=== PATIENT | female | born 1950 | race Caucasian/White ===

== ENCOUNTER → 2016-12-16 | Outpatient (CLI) | payer OTHER ==
[~2016-12-16] MED LIST: ASPI81TA28 PO; CHOL100010 PO; HYDR200T5 PO; METO100T44 PO; MULT-513 PO; MYCO500T4 PO; NXM/40 PO; SYMIN160 INH
--- NOTE | 2016-12-16 12:00 | DIAGNOSTIC IMAGING REPORT ---
ABDOMINAL ULTRASOUND, RIGHT UPPER QUADRANT HISTORY: Abnormal liver function tests R79.89. COMPARISON: None. FINDINGS: Pancreas: The pancreas demonstrates a normal echotexture. Liver: Fatty infiltration Gallbladder: No gallbladder wall thickening. No gallstones. CBD: 5 mm Right kidney: No hydronephrosis. IMPRESSION: Fatty infiltration of liver. Otherwise negative study Electronically signed by: Rodrigue Paulino M.D. 12/16/2016 11:58 AM Dictated Date/Time: 12/16/2016 11:57 AM
== END | disposition home or self-care (01) ==
LOC: C.ULTR 11:05
PROVIDERS: ATTEND Internal Medicine Gastroenterology
DX: R79.89 Other specified abnormal findings of blood chemistry (principal)

== ENCOUNTER → 2017-07-21 | Outpatient (CLI) | payer OTHER ==
--- NOTE | 2017-07-21 14:36 | ECHOCARDIOGRAM REPORT ---
*NOTICE TO RECEIVING DEMOCRAT AGENCY This information is strictly Confidential and protected under [place] law. [place] law prohibits you from making any further disclosure of this information unless further disclosure is expressly permitted by the written consent of the person to whom it pertains or is authorized by law. A general authorization for the release of medical or other information is not sufficient for this purpose. Hospital accepts no responsibility if the information is made available to any other person, INCLUDING THE PATIENT. Interpretation Summary * Name: ALONDRA STEWARD Study Date: 07/21/2017 11:10 AM BP: 127/78 mmHg * Patient Location: [facility] HR: 65 * : 1950 (M/d/yyyy) Gender: Female Height: 64 in * Age: 67 yrs Ethnicity: [place] Weight: 179 lb * Ordering Physician: Xiomara Ahumada * Referring Physician: Xiomara Ahumada * Performed By: Olinda Rai RCS * * Reason For Study: SCLERODERMA / DYSPNEA * BSA: 1.9 m2 * -- Conclusions -- * Left ventricular systolic function is normal. * Diastolic dysfunction, Grade II, consistent with elevated left atrial pressure. * Compared to an echocardiogram from 05/23/2016, there is no significant difference Procedure Details * A complete two-dimensional transthoracic echocardiogram was performed (2D, M-mode, Doppler and color flow Doppler). Left Ventricle * The left ventricle is normal in size. * There is normal left ventricular wall thickness. * Left ventricular systolic function is normal. * Ejection Fraction = 55-60%. * Diastolic dysfunction, Grade II, consistent with elevated left atrial pressure. * The left ventricular wall motion is normal. Right Ventricle * The right ventricle is normal in size and function. Atria * The left atrial size is normal. * Right atrial size is normal. Mitral Valve * The mitral valve anatomy is normal. * There is trace mitral regurgitation. Tricuspid Valve * The tricuspid valve anatomy is normal. * Significant tricuspid regurgitation is absent. Aortic Valve * The aortic valve is normal in structure and function. * No hemodynamically significant valvular aortic stenosis. * There is no significant aortic regurgitation. Great Vessels * The aortic root is normal size. Pericardium/Pleural * There is no pericardial effusion. Great Vessels * Normal inferior vena cava diameter and respiratory variation suggests normal central venous pressure. MMode 2D Measurements and Calculations IVSd 1.0 cm IVSs 1.3 cm LVIDd 4.9 cm LVIDs 3.8 cm LVPWd 0.86 cm LVPWs 1.0 cm IVS/LVPW 1.2 FS 23.7 % EDV(Teich) 114.7 ml ESV(Teich) 60.6 ml EF(Teich) 47.1 % EDV(cubed) 120.2 ml ESV(cubed) 53.4 ml EF(cubed) 55.6 % % IVS thick 21.2 % % LVPW thick 21.3 % LV mass(C)d 167.3 grams LV mass(C)dI 89.6 grams/m\S\2 LV mass(C)s 143.2 grams LV mass(C)sI 76.8 grams/m\S\2 SV(Teich) 54.0 ml SI(Teich) 29.0 ml/m\S\2 SV(cubed) 66.8 ml SI(cubed) 35.8 ml/m\S\2 Ao root diam 2.7 cm Ao root area 5.8 cm\S\2 LA dimension 4.2 cm LA/Ao 1.6 LVOT diam 1.9 cm LVOT area 2.9 cm\S\2 LVAd ap4 28.7 cm\S\2 LVLd ap4 6.9 cm EDV(MOD-sp4) 100.3 ml EDV(sp4-el) 101.7 ml LVAs ap4 18.5 cm\S\2 LVLs ap4 5.6 cm ESV(MOD-sp4) 52.4 ml ESV(sp4-el) 52.4 ml EF(MOD-sp4) 47.8 % EF(sp4-el) 48.5 % LVAd ap2 28.5 cm\S\2 LVLd ap2 7.3 cm EDV(MOD-sp2) 91.3 ml EDV(sp2-el) 94.5 ml LVAs ap2 17.1 cm\S\2 LVLs ap2 5.7 cm ESV(MOD-sp2) 41.3 ml ESV(sp2-el) 43.6 ml EF(MOD-sp2) 54.7 % EF(sp2-el) 53.9 % LVLd %diff 6.2 % EDV(MOD-bp) 99.2 ml LVLs %diff 1.7 % ESV(MOD-bp) 46.6 ml EF(MOD-bp) 53.0 % SV(MOD-sp4) 47.9 ml SI(MOD-sp4) 25.7 ml/m\S\2 SV(MOD-sp2) 49.9 ml SI(MOD-sp2) 26.8 ml/m\S\2 SV(MOD-bp) 52.5 ml SI(MOD-bp) 28.2 ml/m\S\2 SV(sp4-el) 49.3 ml SI(sp4-el) 26.4 ml/m\S\2 SV(sp2-el) 50.9 ml SI(sp2-el) 27.3 ml/m\S\2 Doppler Measurements and Calculations MV E max kvng 95.4 cm/sec MV A max kvng 77.6 cm/sec MV E/A 1.2 MV P1/2t max kvng 110.4 cm/sec MV P1/2t 76.5 msec MVA(P1/2t) 2.9 cm\S\2 MV dec slope 422.6 cm/sec\S\2 MV dec time 0.17 sec Ao V2 max 170.8 cm/sec Ao max PG 11.7 mmHg Ao max PG (full) 6.4 mmHg CULLEN(V,A) 2.0 cm\S\2 CULLEN(V,D) 2.0 cm\S\2 LV V1 max PG 5.3 mmHg LV V1 max 114.9 cm/sec MR max kvng 301.1 cm/sec MR max PG 36.3 mmHg PA V2 max 107.8 cm/sec PA max PG 4.7 mmHg
--- NOTE | 2017-07-22 07:29 | PULMONARY FUNCTION TEST ---
Spirometry is within the limits of normal. The mid flow rates are 67% of predicted. This is not definitively abnormal but cannot exclude small airways dysfunction. Lung volumes show normal FRC, RV and TLC. Diffusion capacity is low normal at 72%. When corrected for alveolar ventilation, it was 90%.
== END | disposition home or self-care (01) ==
LOC: C.CPL 10:51
PROVIDERS: ATTEND Internal Medicine
DX: M34.9 Systemic sclerosis, unspecified (principal)

== ENCOUNTER 2017-10-25 10:55 | Emergency (ER) | payer OTHER ==
[~2017-10-25] VITALS: Ht 162.6 cm; Wt 86.0 kg
[2017-10-25 11:01] VITALS: TEMP 36.6; Ht 162.6 cm; Wt 86.0 kg
[2017-10-25] MEDS ORDERED: ALBUT/IPRATROP 3MG/0.5MG NEB 3 ML VIAL INH STA (11:27)
--- NOTE | 2017-10-25 11:33 | EMERGENCY ROOM VISIT NOTE ---
ED Visit Note First contact with patient: 11:09 CHIEF COMPLAINT: "Upper respiratory something going on" HISTORY OF PRESENT ILLNESS: This 67-year-old female patient, significant past medical history scleroderma and lupus, presents to the emergency department ambulatory, complaining of URI symptoms x 5 days. The patient states they have been experiencing congestion, runny nose, sore throat, cough, chills, and coughing up sputum. She states approximately 2 days ago, the symptoms began moving into her sinuses, and she is now experiencing bilateral sinus congestion and purulent drainage. They deny any other symptoms including otalgia, swollen lymph nodes, objective fever, nausea, or vomiting. There is pain with swallowing due to the sore throat, but she states the sore throat has improved, now only feels hot. The patient describes the drainage from the nose as thick, yellow, and green. There is mild bilateral sinus pressure and pain. The patient has taken OTC Tylenol and prescription hydrocodone cough syrup with mild improvement in symptoms. She has not taken any decongestants or antihistamines. The patient does not recall any known exposure to strep throat. The patient does have a history of sinus infections, and does report frequent pneumonia. Denies a rash. The patient has been using her Symbicort and ProAir air, but has not been using the pro-air consistently. REVIEW OF SYSTEMS: A 10 system review of systems was performed with positives and pertinent negatives listed in the history of present illness. All other systems were reviewed and are negative. ALLERGIES: None MEDICATIONS: Metoprolol, Nexium, CellCept, Plaquenil, aspirin, vitamin D, multivitamin, Symbicort, ranitidine, hydrochlorothiazide, ProAir PMH: Lupus, scleroderma SOCIAL HISTORY: The patient lives locally with family. She denies drug, alcohol , tobacco use. PHYSICAL EXAM: VITALS: Vitals are noted on the nurse's note and reviewed by myself. Vital signs stable. GENERAL: This is a 67-year-old white female, in no acute distress, nondiaphoretic, well-developed well-nourished. SKIN: The skin was without rashes, erythema, edema, or bruising. There is no tenting of the skin. Capillary reflex less than 2 seconds. HEAD: Normocephalic atraumatic. EARS: External auditory canals clear, bilateral tympanic membranes pearly hubbard without erythema or effusion bilaterally. EYES: Pupils equal round and reactive to light and accommodation. Conjunctivae without injection, sclerae without icterus. Extraocular movements intact. NOSE: Patent, turbinates with mild inflammation, but no erythema. Clear rhinorrhea noted. No sinus tenderness. MOUTH: Mucous membranes moist. Tonsils are not enlarged. Pharynx without erythema or exudate. Uvula midline. Airway patent. Tongue does not deviate. NECK: Supple without nuchal rigidity. No lymphadenopathy. No thyromegaly. Cervical spine is nontender. No JVD. HEART: Regular rate and rhythm without murmurs gallops or rubs. LUNGS: Mild to moderate wheezing and rhonchi noted throughout, worse in the bilateral lower lung gilbert. No dullness to percussion. No retractions or accessory muscle use. MUSCULOSKELETAL: No muscle atrophy, erythema, or edema noted. Full range of motion without joint tenderness in all extremities. No tenderness to palpation. Normal gait. Strength 5/5 throughout. NEURO: Patient was alert and oriented to person place and time. Normal sensation to light and sharp touch. No focal neurological deficits. RADIOLOGY: CHEST 2 VIEWS ROUTINE CLINICAL HISTORY: cough dyspnea COMPARISON STUDY: 08/10/2015 FINDINGS: The bones soft tissues and hemidiaphragms are normal. The cardiomediastinal silhouette is normal. The lungs are clear. The pulmonary vasculature is normal. IMPRESSION: Negative chest. The above report was generated using voice recognition software. It may contain grammatical, syntax or spelling errors. Electronically signed by: Rodrigue Paulino M.D. 10/25/2017 12:07 PM Dictated Date/Time: 10/25/2017 12:07 PM EMERGENCY DEPARTMENT COURSE: The patient was seen and evaluated as above. She was given a DuoNeb breathing treatment and reassessed. The patient was feeling much better. Chest x-ray performed and reviewed by myself and radiologist as above. No acute pneumonia noted. The patient will be started on steroids with a prescription for antibiotics due to her PMH and current medications. The patient was agreeable to this treatment plan. We did discuss the use of her Albuterol inhaler, and due to frequent bronchitis, I did recommend the patient discuss obtaining a nebulizer machine for use at home. The patient was agreeable. All questions answered to her satisfaction. Discharge instructions reviewed, and the patient was discharged home in good condition. I attest that I have personally reviewed the patient's current medication list. Patient was found to have normal blood pressure on screening and does not require follow-up. DIFFERENTIAL DIAGNOSIS: Pneumonia, influenza, acute Sinusitis, Acute pharyngitis , acute bronchitis, tracheobronchitis, URI, Viral pharyngitis, Strep Pharyngitis , Pjni-Kgse-Iffnt Disease, Peritonsillar abscess, malignancy, and others DIAGNOSIS: Acute bronchitis, upper respiratory infection The chart was completed utilizing [employer] Speech voice recognition software. Grammatical errors, random word insertions, pronoun errors, and incomplete sentences are an occasional consequence of this system due to software limitations, ambient noise, and hardware issues. Any formal questions or concerns about the content, text, or information contained within the body of this dictation should be directly addressed to the provider for clarification. Current/Historical Medications Scheduled Aspirin (Aspirin Ec), 81 MG PO DAILY Azithromycin (Zithromax Z-Mario), 0 PO UD Budesonide/Formoterol Fumarate (Symbicort 160/4.5 Inhaler ), 2 PUFFS INH BID Cholecalciferol (Vitamin D3), 1,000 UNIT PO DAILY Esomeprazole Magnesium (Nexium), 20 MG PO QAM Hydrochlorothiazide (Hydrochlorothiazide), 12.5 MG PO MWF Hydroxychloroquine Sulfate (Plaquenil), 200 MG PO BID Methylprednisolone (Medrol Dosepak), 0 PO DAILY Metoprolol Succ (Toprol Xl) (Toprol-Xl ), 100 MG PO DAILY Multivitamins/Minerals (Mvi With Minerals), 1 TAB PO Q2D Mycophenolate Mofetil (Cellcept), 1,000 MG PO QAM Mycophenolate Mofetil (Cellcept), 1,000 MG PO QPM Ranitidine (Zantac), 150 MG PO QPM Scheduled PRN Benzonatate (Tessalon Perles), 200 MG PO TID PRN for Cough Allergies Coded Allergies: No Known Allergies (Unverified , 10/25/17) Vital Signs Date Time Temp Pulse Resp B/P (MAP) Pulse Ox O2 Delivery O2 Flow Rate FiO2 10/25/17 12:50 76 18 143/98 95 10/25/17 11:58 95 Room Air 10/25/17 11:01 36.6 76 18 154/88 95 Room Air Medications Administered Medications (Trade) Dose Ordered Sig/Shalonda Route Start Time Stop Time Status Last Admin Dose Admin Albuterol/ Ipratropium (Duoneb) 3 ml NOW STAT INH 10/25/17 11:27 10/25/17 11:28 DC 10/25/17 11:38 3 ML Departure Information Impression Primary Impression: Acute bronchitis Additional Impression: Upper respiratory infection Dispostion Home / Self-Care Condition GOOD Prescriptions Azithromycin (ZITHROMAX Z-MARIO) 250 Mg Tab 0 PO UD, #1 PKT 2 TABS DAY 1, THEN 1 TAB DAILY FOR 4 DAYS Prov: Kimmy Russell PA-C 10/25/17 Methylprednisolone (MEDROL DOSEPAK) 4 Mg Mario 0 PO DAILY, #1 PKT Prov: Kimmy Russell PA-C 10/25/17 Benzonatate (Tessalon Perles) 200 Mg Cap 200 MG PO TID Y for Cough for 10 Days, #30 CAP Prov: Kimmy Russell PA-C 10/25/17 Referrals Saroj Kong M.D. (PCP) Patient Instructions Bronchitis Acute, ED URI Viral W Wheezing, My [facility] Additional Instructions You were seen and evaluated in the emergency department today for an upper respiratory infection. I do feel that based on your symptoms, and the duration of illness, this is likely viral in nature. As discussed, antibiotics will not treat viral illness, however, given your history, you will be given an antibiotic in case of worsening symptoms. You were prescribed azithromycin to be taken as directed. This is an antibiotic. All antibiotics have the potential to cause diarrhea. Stop this medication and contact a medical provider if you were to develop any significant adverse side effects including: wheezing, shortness of breath, passing out, vomiting, or a diffuse rash. Always take antibiotics as directed and COMPLETE the ENTIRE course regardless of the improvement of your symptoms. You have been prescribed a Medrol Dosepak. This is a steroid which will help decrease your inflammation, redness, and itch. Take the medicine as prescribed. Take the ENTIRE 6 day course of the steroids. Use the albuterol inhaler to use for wheezing or difficulty breathing. Use this inhaler 1-2 puffs every 4-6 hours as needed. If you find that your symptoms are not improving with the use of the inhaler, or if you find that you need to use the inhaler longer than 1 week, return to the ED or follow-up with your PCP. You have been given benzonatate (Tessalon Pearles) to be used for coughing. These should be taken 1 capsule up to 3 times per day as needed for coughing. Do not take this medication more than prescribed. You may use this medication in addition to OTC cough medications. For your sore throat, you may use a 1:1 mixture of liquid Benadryl and liquid Maalox. Gargle and spit this mixture. It will help to soothe the throat and provide some relief. Drink warm tea with honey and lemon, as this will also help to soothe the throat. Gargle with salt water frequently. As discussed, you should take OTC Mucinex and/or Sudafed for your symptoms. Please do not exceed the recommended daily dosages. Ibuprofen(Motrin, Advil) may be used for fever or pain. Use 600mg every six hours as needed. Take with food. Avoid using more than 2400mg in a 24 hour period. Do not use 2400mg per day for more than three consecutive days without physician direction. Prolonged inappropriate use can lead to stomach upset or ulcers. You may take Naproxen 1-2 tablets twice daily in place of ibuprofen. This medication will help with the swelling in your sinuses. (AND/OR) Acetaminophen(Tylenol) may be used for fever or pain. Use 1000mg every six hours as needed. Avoid using more than 3000mg in a 24 hour period. For congestion, you may use Flonase OTC. You may want to consider zinc, echinacea, and vitamin C to help boost your immunity. Please get plenty of rest and drink plenty of fluids. Please return or follow-up with your PCP in 1 week if you are not experiencing any improvement in your symptoms. Return to the emergency department for coughing up blood, difficulty breathing, chest pain, worsening symptoms, or for other concerns. Problem Qualifiers Primary Impression: Acute bronchitis Bronchitis organism: unspecified organism Qualified Codes: J20.9 - Acute bronchitis, unspecified Additional Impression: Upper respiratory infection URI type: unspecified viral URI Qualified Codes: J06.9 - Acute upper respiratory infection, unspecified
--- NOTE | 2017-10-25 12:08 | DIAGNOSTIC IMAGING REPORT ---
CHEST 2 VIEWS ROUTINE CLINICAL HISTORY: cough dyspnea COMPARISON STUDY: 08/10/2015 FINDINGS: The bones soft tissues and hemidiaphragms are normal. The cardiomediastinal silhouette is normal. The lungs are clear. The pulmonary vasculature is normal. IMPRESSION: Negative chest. The above report was generated using voice recognition software. It may contain grammatical, syntax or spelling errors. Electronically signed by: Rodrigue Paulino M.D. 10/25/2017 12:07 PM Dictated Date/Time: 10/25/2017 12:07 PM
[2017-10-25] MEDS ORDERED: ESOM20CA PO (12:37)
[2017-10-25] MEDS ORDERED: RANI150T85 PO (12:37)
[2017-10-25] MEDS ORDERED: HYDR25TA5 PO (12:37)
[2017-10-25] MEDS ORDERED: METH4PAK PO (12:38)
[2017-10-25] MEDS ORDERED: BENZ1CAP90 PO (12:38)
[2017-10-25] MEDS ORDERED: AZITTAB PO (12:38)
[2017-10-25] MEDS ORDERED: CHOL1000 PO (12:42)
[2017-10-25 12:50] VITALS: BP 143/98; PULSE 76; O2SAT 95
== END 2017-10-25 12:51 | disposition home or self-care (01) ==
LOC: C.EDB 10:57 → C.EDC 12:51
DX: J20.9 Acute bronchitis, unspecified (principal); J06.9 Acute upper respiratory infection, unspecified; L93.0 Discoid lupus erythematosus; Z79.82 Long term (current) use of aspirin

== ENCOUNTER 2024-06-02 14:11 | Inpatient (IN) ==
[2024-06-02] MEDS: LEVALBUTEROL HCL 0.63 MG/3 ML NEB NEB STA (14:46)
[2024-06-02] MEDS: SODIUM CHLORIDE 0.9% 1,000 ML IV SCH (14:46)
[2024-06-02] MEDS: ONDANSETRON INJ 2 MG/ML 2 ML VIAL IV STA (14:46)
--- NOTE | 2024-06-02 14:48 | Emergency Department Note ---
Impression & Plan Sepsis, Acute respiratory distress, Atrial fibrillation with rapid ventricular response, Community acquired pneumonia ED Provider Note NAME: ALONDRA STEWARD AGE: 74 SEX: Female INFORMANT: Patient and ED PROVIDER(S): Mo Cook MD CHIEF COMPLAINT: Shortness of breath PLAN: Disposition: Admitted Outpatient prescription management: none Referral: None MEDICAL DECISION MAKING: Patient presented with shortness of breath. She was found to be tachycardic, hypoxic, and tachypneic. She was wheezing on examination. Given the vomiting and diarrhea coupled with a dry mucous membranes and borderline hypotension there was concerns for dehydration. ECG was performed and she was found to be in rapid atrial fibrillation. She does note history of this and states she does take metoprolol. She also takes supplemental potassium. The patient had blood work, blood cultures and urinalysis ordered. Chest x-ray ordered as well. Discussed case with ED pharmacist and patient had empiric cefepime and vancomycin ordered for antibiotic coverage. Ordered Xopenex nebulizer treatment due to the wheezing. I-STAT performed. Patient was found to be hypokalemic. Potassium was repleted both with IV and oral routes. She was also found of the hypomagnesemic and this was given as well. Additional fluid resuscitation was done. Patient remained in A-fib with RVR. IV Cardizem 10 mg was given. Chest x-ray raise concerns for left-sided infiltrate. Cardiac troponin was borderline elevated, suspect rate and stress related. CBC unremarkable. Procalcitonin negative. BioFire testing negative. Additional 10 mg of IV Cardizem given. Lactate normal. Patient will need further management in the hospital. [facility] case with Dr. Meadows. Patient was evaluated in the ER and admitted for further management. Patient was still tachycardic and was started on a Cardizem drip. Heart rate did improve. Internal medicine also delivered a dose of metoprolol IV. Repeat cardiac troponin was minimally elevated. Care/management discussed with: affiliate manager Level of care consideration(s): After review of the information above and other included data, I feel the patient requires escalation of care to admission Triage Nursing notes: reviewed and agree them. Vital Signs: reviewed and remarkable for tachycardia, hypotension, borderline fever, hypoxia Additional History obtained from: Patient's . Chronic Medical/Social Conditions affecting care: Scleroderma, immunosuppression Prior/ Outside/ External records reviewed: none Differential Diagnosis: Sepsis, UTI, pneumonia, metabolic, electrolyte abnormalities, cardiac sources, intracerebral event, toxicologic, neurologic, as well as other pathologies. Diagnostics, independently interpreted by me: ECG: Twelve-lead ECG reveals atrial fibrillation with rapid ventricular response at 158 bpm. Right bundle branch block present. Inferior T wave inversion. No ST elevation. When compared to ECG from 06/07/2020 the A-fib has replaced sinus rhythm. Right bundle branch block is old. Cardiac Monitoring: Cardiac monitoring ordered by me: The patient was placed on continuous cardiac monitoring and observed. It revealed atrial fibrillation at 170 bpm with occasional PVC. Medical decision rules: none Imaging studies: Chest x-ray concerning for left-sided infiltrate CT PE study reveals presence of multifocal left-sided pneumonia. No evidence of pulmonary embolus. HPI: 74 year old Female arrives for evaluation of shortness of breath and dyspnea. This started over the last few weeks and is rapidly worsening over the last few days. The patient also notes the following associated symptoms, cough, shortness of breath, wheezing, nausea, vomiting, diarrhea, weakness, fever, chills. The patient has been seen by her primary and was prescribed Levaquin and metronidazole for relieving factors. Patient states she was diagnosed with pneumonia. She is immunosuppressed from CellCept. She notes generalized myalgias, skin tenderness, and abdominal cramping with coughing. Current pain is rated as 6/10. Patient does have a history of COVID-pneumonia 4 years ago. Pt denies LOC, headache, diaphoresis, visual changes, neck pain, chest pain, back pain, melena, hematochezia, urinary symptoms, numbness, or other complaints.. PAST MEDICAL HISTORY: See Below, Raynaud's, scleroderma, tachycardia PAST SURGICAL HISTORY: See Below, SOCIAL HISTORY: See Below, HOME MEDICATIONS: See Below ALLERGIES: See Below VITALS: See Below PHYSICAL EXAMINATION: GENERAL: Awake, alert, ill-appearing, in no distress HENT: Normocephalic, atraumatic. Oropharynx with dry mucous membranes. EYES: Normal conjunctiva. Sclera non-icteric. NECK: Inspection normal. Non-tender. Supple. No nuchal rigidity. FROM. No masses. RESPIRATORY: Scattered wheezes and rhonchi. Cough present. Increased respiratory effort. CARDIAC: Tachycardic rate. Irregular rhythm. Rhythm. No murmurs. No rubs. Extremities warm and well perfused. Pulses equal. No JVD. GI: Soft, non-distended. No tenderness to palpation. No rebound or guarding. No masses. RECTAL: Deferred. MUSCULOSKELETAL: Atraumatic. There is no CVA tenderness to palpation. No joint edema. LOWER EXTREMITIES: Calves are equal size bilaterally and non-tender. No edema. No discoloration. NEURO: Normal sensorium. No sensory or motor deficits noted. SKIN: No rash or jaundice noted. PROCEDURES: none CRITICAL CARE: I have personally spent 75 minutes of critical care time in the direct management of this patient. This includes bedside care, interpretation of diagnostic studies, and testing, discussion with consultants, patient, and family members, and other required patient management activities. These minutes are in excess of all separately billable procedures. OBSERVATION NOTE: none Past Med/Surg History Problem List (Updated 06/02/24 @ 17:09 by Tucker Gonzalez DO) Hypoxic respiratory failure Immunosuppression due to drug therapy Chronic fibrosis of lung Hypomagnesemia Hypokalemia Demand ischemia of myocardium Severe sepsis with acute organ dysfunction Multifocal pneumonia Community acquired pneumonia (Acute) Atrial fibrillation with rapid ventricular response (Acute) Acute respiratory distress (Acute) Sepsis (Acute) Weakness Encounter for pre-operative examination COVID-19 (Acute) Pneumonia (Acute) Medical History Hx of endometriosis Degenerative disc disease Osteoarthritis History of kidney stones Esophageal dilatation HX OF Dysphagia GERD (gastroesophageal reflux disease) History of anemia Irregular heart rate follows w/ Dr Owen History of COVID-19 06/22/23- home test-resolved Hx of recurrent pneumonia reason for inhaler- Hypertension Lupus (systemic lupus erythematosus) Scleroderma affects lungs, reason for cellcept Surgical History History of anesthesia reaction EPIDURAL WITH LABOR (WENT INTO RESPIRATORY ARREST D/T "GOING BOTH WAYS") History of esophagogastroduodenoscopy (EGD) History of colonoscopy H/O total hysterectomy History of section X 1 Hx of basal cell carcinoma excision LEG History of nasal septoplasty History of tooth extraction History of cataract surgery RT/LEFT Family History Grandmother (Maternal) Family hx of colon cancer Other No family history of adverse response to anesthesia Social History Smoking Status: Never smoker Second Hand Exposure: Yes ( A CHILD); Do You Dip or Chew Tobacco: No; Hx Alcohol Use: Yes Alcohol type: wine and hard liquor Hx Substance Use: No Preferred Language: Slovenian Communication Ability: Effective Reading Assistant Required: No Beliefs That Will Affect Care: None Current Living Situation: Spouse Feels Safe at Home: Yes Assistive Devices: None Allergies Allergies Allergy/AdvReac Type Severity Reaction Status Date / Time latex Allergy Mild SKIN Verified 06/02/24 16:31 IRRITATION levofloxacin [From Levaquin] AdvReac Severe Diarrhea Unverified 06/02/24 16:31 metronidazole AdvReac Severe Diarrhea Unverified 06/02/24 16:31 adhesive tape AdvReac Mild SKIN Verified 06/02/24 16:31 REDNESS Home Meds Home Medications Medication Instructions Recorded Confirmed albuterol sulfate 90 mcg/actuation 1 inh inhalation QID PRN SHORT OF 10/31/20 06/02/24 aerosol inhaler BREATH budesonide-formoterol HFA 160 2 puff inhalation BID PRN SHORT OF 10/31/20 06/02/24 mcg-4.5 mcg/actuation aerosol BREATH inhaler (Symbicort) cholecalciferol (vitamin D3) 125 125 mcg PO QAM 10/31/20 06/02/24 mcg (5,000 unit) tablet (Vitamin D3) esomeprazole magnesium 20 mg 20 mg PO BID 10/31/20 06/02/24 capsule,delayed release (Nexium) hydroxychloroquine 200 mg tablet 200 mg PO BID 10/31/20 06/02/24 mycophenolate mofetil 500 mg 500 mg PO UD 10/31/20 06/02/24 tablet (CellCept) melatonin 3 mg tablet 3 mg PO HS PRN Sleep 07/03/23 06/02/24 acetaminophen 500 mg tablet 500 mg PO Q6H PRN Pain 06/02/24 06/02/24 famotidine 20 mg tablet (Pepcid) 20 mg PO HS 06/02/24 06/02/24 hydrochlorothiazide 25 mg tablet 25 mg PO DAILY 06/02/24 06/02/24 metoprolol succinate 50 mg 50 mg PO HS 06/02/24 06/02/24 tablet,extended release 24 hr nystatin 100,000 unit/mL oral 500,000 unit PO UD 06/02/24 06/02/24 suspension potassium chloride 20 mEq 20 meq PO DAILY 06/02/24 06/02/24 tablet,extended release(part/cryst) Results & Data (ED) Vital Signs Vital Signs - 24 hr 06/02/24 14:13 06/02/24 14:30 06/02/24 14:30 Temperature 37.6 C H Temperature Source Temporal Artery Scan Pulse Rate 157 H Pulse Rate [Finger] 156 H Pulse Rhythm [Finger] Regular Pulse Strength [Finger] Normal Respiratory Rate 20 20 Respiratory Effort / Characteristics Non-Labored Spontaneous Non-Labored Spontaneous Respiratory Depth Normal Normal Respiratory Pattern Regular Blood Pressure 113/78 Blood Pressure [Right Arm] 99/79 L Blood Pressure Mean 89 Blood Pressure Mean [Right Arm] 85 Blood Pressure Position [Right Arm] Sitting Pulse Oximetry 90 89 L 95 Oxygen Delivery Method Room Air Room Air Nasal Cannula Nasal Cannula Oxygen Flow Rate 0 95 Sepsis Recent Fever Within 48 Hours No Sepsis New/Unexplained Change in Mental Status N/A Sepsis Action Taken by Nursing No Action Required Oxygen Flow Rate - Titration 3 Pulse Oximetry Post Tiitration 94 06/02/24 14:30 06/02/24 14:35 06/02/24 14:37 Temperature Temperature Source Pulse Rate 159 H 156 H Pulse Rate [Finger] 155 H Pulse Rhythm [Finger] Regular Pulse Strength [Finger] Normal Respiratory Rate 20 20 Respiratory Effort / Characteristics Non-Labored Spontaneous Respiratory Depth Normal Respiratory Pattern Blood Pressure Blood Pressure [Right Arm] 99/79 L Blood Pressure Mean Blood Pressure Mean [Right Arm] 85 Blood Pressure Position [Right Arm] Sitting Pulse Oximetry 94 94 Oxygen Delivery Method Nasal Cannula Nasal Cannula Oxygen Flow Rate 3 3 Sepsis Recent Fever Within 48 Hours Sepsis New/Unexplained Change in Mental Status Sepsis Action Taken by Nursing Oxygen Flow Rate - Titration Pulse Oximetry Post Tiitration 06/02/24 14:53 06/02/24 15:11 06/02/24 15:16 Temperature Temperature Source Pulse Rate Pulse Rate [Finger] 154 H 156 H 167 H Pulse Rhythm [Finger] Pulse Strength [Finger] Respiratory Rate 22 20 22 Respiratory Effort / Characteristics Non-Labored Spontaneous Respiratory Depth Normal Respiratory Pattern Blood Pressure Blood Pressure [Right Arm] 121/89 121/89 121/89 Blood Pressure Mean Blood Pressure Mean [Right Arm] 99 99 99 Blood Pressure Position [Right Arm] Pulse Oximetry 98 94 94 Oxygen Delivery Method Nebulizer Nasal Cannula Nasal Cannula Oxygen Flow Rate 3 3 Sepsis Recent Fever Within 48 Hours Sepsis New/Unexplained Change in Mental Status Sepsis Action Taken by Nursing Oxygen Flow Rate - Titration Pulse Oximetry Post Tiitration 06/02/24 15:56 06/02/24 16:05 06/02/24 16:35 Temperature Temperature Source Pulse Rate Pulse Rate [Finger] 149 H 146 H 152 H Pulse Rhythm [Finger] Regular Pulse Strength [Finger] Normal Respiratory Rate 22 22 20 Respiratory Effort / Characteristics Non-Labored Spontaneous Respiratory Depth Normal Respiratory Pattern Blood Pressure Blood Pressure [Right Arm] 142/78 H 123/82 121/98 Blood Pressure Mean Blood Pressure Mean [Right Arm] 99 95 105 Blood Pressure Position [Right Arm] Pulse Oximetry 91 93 92 Oxygen Delivery Method Nasal Cannula Nasal Cannula Nasal Cannula Oxygen Flow Rate 3 3 3 Sepsis Recent Fever Within 48 Hours Sepsis New/Unexplained Change in Mental Status Sepsis Action Taken by Nursing Oxygen Flow Rate - Titration Pulse Oximetry Post Tiitration 06/02/24 16:48 06/02/24 16:49 06/02/24 17:07 Temperature Temperature Source Pulse Rate 124 H Pulse Rate [Finger] 128 H 109 H Pulse Rhythm [Finger] Pulse Strength [Finger] Respiratory Rate 22 22 Respiratory Effort / Characteristics Respiratory Depth Respiratory Pattern Blood Pressure 121/98 Blood Pressure [Right Arm] 121/98 116/52 L Blood Pressure Mean Blood Pressure Mean [Right Arm] 105 73 Blood Pressure Position [Right Arm] Pulse Oximetry 93 93 Oxygen Delivery Method Nasal Cannula Nasal Cannula Oxygen Flow Rate 3 3 Sepsis Recent Fever Within 48 Hours Sepsis New/Unexplained Change in Mental Status Sepsis Action Taken by Nursing Oxygen Flow Rate - Titration Pulse Oximetry Post Tiitration 06/02/24 17:13 06/02/24 17:16 Temperature Temperature Source Pulse Rate 115 H Pulse Rate [Finger] 112 H Pulse Rhythm [Finger] Pulse Strength [Finger] Respiratory Rate 22 Respiratory Effort / Characteristics Respiratory Depth Respiratory Pattern Blood Pressure 116/52 L Blood Pressure [Right Arm] 116/52 L Blood Pressure Mean Blood Pressure Mean [Right Arm] 73 Blood Pressure Position [Right Arm] Pulse Oximetry 93 Oxygen Delivery Method Nasal Cannula Oxygen Flow Rate 3 Sepsis Recent Fever Within 48 Hours Sepsis New/Unexplained Change in Mental Status Sepsis Action Taken by Nursing Oxygen Flow Rate - Titration Pulse Oximetry Post Tiitration Laboratory Data 06/02/24 14:44 06/02/24 14:44 Lab Results 06/02/24 06/02/24 06/02/24 Range/Units 14:33 14:36 14:44 WBC 8.96 (4.8-10.8) K/ul RBC 3.33 L (4.20-5.40) M/uL Hgb 13.3 (12.0-16.0) g/dl POC Hgb 12.9 (12.0-16.0) g/dl Hct 30.7 L (37.0-47.0) % POC Hct 38 (37-47) % MCV 92.2 (80.0-100.0) fL MCH 29.6 (25.0-34.0) pg MCHC 34.0 (32.0-36.0) g/dL RDW Std Deviation 49.5 H (36.4-46.3) fL RDW Coeff of Naz 19.4 H (11.5-14.5) % Plt Count 174 (130-400) K/uL MPV 10.7 (9.4-12.4) fL Immature Gran % (Auto) 0.3 % Neut % (Auto) 89.9 % Lymph % (Auto) 3.6 % Price % (Auto) 6.1 % Eos % (Auto) 0.0 % Baso % (Auto) 0.1 % Neut # (Auto) 8.05 H (1.40-6.50) K/uL Lymph # (Auto) 0.32 L (1.20-3.40) K/uL Price # (Auto) 0.55 (0.11-0.59) K/uL Eos # (Auto) 0.00 (0.00-0.50) K/uL Baso # (Auto) 0.01 (0.00-0.20) K/uL Immature Gran # (Auto) 0.03 (0.01-0.20) K/uL RBC Morphology Unremarkable POC Sodium 136 (135-144) mmol/L Sodium 137 (136-145) mmol/L POC Potassium 3.0 L (3.3-5.0) mmol/L Potassium 3.0 L (3.5-5.1) mmol/L POC Chloride 98 L (101-112) mmol/L Chloride 99 (98-107) mmol/L Carbon Dioxide 28 (21-32) mmol/L POC Total CO2 24 (24-31) mmol/L Anion Gap 10 (3-11) POC Anion Gap 17.0 (16-25) mmol/L POC BUN 16 (7-18) mg/dl BUN 17 (6-23) mg/dl Creatinine 0.84 (0.6-1.2) mg/dl POC Creatinine 0.9 (0.6-1.3) mg/dl Est Cr Clr Drug Dosing 61.1 ml/min eGFR 73.79 BUN/Creatinine Ratio 20.2 H (10-20) Glucose 114 H (70-99(Fasting)) mg/dl POC Glucose (other) 116 H (70-99) mg/dl Lactate 1.6 (0.4-2.0) mmol/L Calcium 10.8 H (8.6-10.3) mg/dl POC Ioniz Calcium Santana 1.27 (1.12-1.32) mmol/l Magnesium 1.4 L (1.7-2.4) mg/dl Total Bilirubin 1.3 H (0.2-1.0) mg/dl Direct Bilirubin 0.3 H (0-0.2) mg/dl AST 25 (13-39) U/L ALT 27 (7-52) U/L Alkaline Phosphatase 88 (34-104) U/L Troponin I High Sens 53.5 H* (0-14) pg/ml B-Natriuretic Peptide 85 (0-100) pg/ml Total Protein 6.6 (6.0-8.3) gm/dl Albumin 4.3 (3.4-5.0) gm/dl Procalcitonin 0.46 (0-0.5) ng/ml Urine Color Urine Appearance (Clear) Urine pH (4.5-7.5) Ur Specific [place] (1.000-1.030) Urine Protein (Negative) Urine Glucose (UA) (Negative) Urine Ketones (Negative) Urine Blood (Negative) Urine Nitrite (Negative) Urine Bilirubin (Negative) Urine Urobilinogen (Negative) Ur Leukocyte Esterase (Negative) Urine WBC (Auto) (0-5) /hpf Urine RBC (Auto) (0-2) /hpf U Hyaline Cast (Auto) (0-2) /lpf U Epithel Cells (Auto) (0-2) /hpf Urine Bacteria (Auto) (None Seen) Nasal Screen MRSA (PCR) (Negative) Adenovirus (PCR) Not Detected (NotDetected) B. pertussis DNA (PCR) Not Detected (NotDetected) B.parapertussis DNA PCR Not Detected (NotDetected) C. pneumoniae DNA (PCR) Not Detected (NotDetected) Coronavirus OC43 (PCR) Not Detected (NotDetected) Coronavirus HKU1 (PCR) Not Detected (NotDetected) Coronavirus 229E (PCR) Not Detected (NotDetected) SARS-CoV-2 (PCR) Not Detected (NotDetected) Coronavirus NL63 (PCR) Not Detected (NotDetected) Human Metapneumovir PCR Not Detected (NotDetected) Influenza Type A (PCR) Not Detected (NotDetected) Influenza Type B (PCR) Not Detected (NotDetected) M. pneumoniae (PCR) Not Detected (NotDetected) Parainfluenza 1 (PCR) Not Detected (NotDetected) Parainfluenza 2 (PCR) Not Detected (NotDetected) Parainfluenza 3 (PCR) Not Detected (NotDetected) Parainfluenza 4 (PCR) Not Detected (NotDetected) RSV (PCR) Not Detected (NotDetected) Entero/Rhino (PCR) Not Detected (NotDetected) Draw and Hold Cancelled 06/02/24 06/02/24 06/02/24 Range/Units 14:58 15:33 16:32 WBC (4.8-10.8) K/ul RBC (4.20-5.40) M/uL Hgb (12.0-16.0) g/dl POC Hgb (12.0-16.0) g/dl Hct (37.0-47.0) % POC Hct (37-47) % MCV (80.0-100.0) fL MCH (25.0-34.0) pg MCHC (32.0-36.0) g/dL RDW Std Deviation (36.4-46.3) fL RDW Coeff of Naz (11.5-14.5) % Plt Count (130-400) K/uL MPV (9.4-12.4) fL Immature Gran % (Auto) % Neut % (Auto) % Lymph % (Auto) % Price % (Auto) % Eos % (Auto) % Baso % (Auto) % Neut # (Auto) (1.40-6.50) K/uL Lymph # (Auto) (1.20-3.40) K/uL Price # (Auto) (0.11-0.59) K/uL Eos # (Auto) (0.00-0.50) K/uL Baso # (Auto) (0.00-0.20) K/uL Immature Gran # (Auto) (0.01-0.20) K/uL RBC Morphology POC Sodium (135-144) mmol/L Sodium (136-145) mmol/L POC Potassium (3.3-5.0) mmol/L Potassium (3.5-5.1) mmol/L POC Chloride (101-112) mmol/L Chloride (98-107) mmol/L Carbon Dioxide (21-32) mmol/L POC Total CO2 (24-31) mmol/L Anion Gap (3-11) POC Anion Gap (16-25) mmol/L POC BUN (7-18) mg/dl BUN (6-23) mg/dl Creatinine (0.6-1.2) mg/dl POC Creatinine (0.6-1.3) mg/dl Est Cr Clr Drug Dosing ml/min eGFR BUN/Creatinine Ratio (10-20) Glucose (70-99(Fasting)) mg/dl POC Glucose (other) (70-99) mg/dl Lactate (0.4-2.0) mmol/L Calcium (8.6-10.3) mg/dl POC Ioniz Calcium Santana (1.12-1.32) mmol/l Magnesium (1.7-2.4) mg/dl Total Bilirubin (0.2-1.0) mg/dl Direct Bilirubin (0-0.2) mg/dl AST (13-39) U/L ALT (7-52) U/L Alkaline Phosphatase (34-104) U/L Troponin I High Sens 60.5 H* (0-14) pg/ml B-Natriuretic Peptide (0-100) pg/ml Total Protein (6.0-8.3) gm/dl Albumin (3.4-5.0) gm/dl Procalcitonin (0-0.5) ng/ml Urine Color Yellow Urine Appearance Clear (Clear) Urine pH 5.5 (4.5-7.5) Ur Specific [place] 1.022 (1.000-1.030) Urine Protein Negative (Negative) Urine Glucose (UA) Negative (Negative) Urine Ketones Trace H (Negative) Urine Blood Negative (Negative) Urine Nitrite Positive A (Negative) Urine Bilirubin Negative (Negative) Urine Urobilinogen Negative (Negative) Ur Leukocyte Esterase Trace H (Negative) Urine WBC (Auto) 0-5 (0-5) /hpf Urine RBC (Auto) 0-2 (0-2) /hpf U Hyaline Cast (Auto) 0-2 (0-2) /lpf U Epithel Cells (Auto) 0-2 (0-2) /hpf Urine Bacteria (Auto) 4+ H (None Seen) Nasal Screen MRSA (PCR) Negative (Negative) Adenovirus (PCR) (NotDetected) B. pertussis DNA (PCR) (NotDetected) B.parapertussis DNA PCR (NotDetected) C. pneumoniae DNA (PCR) (NotDetected) Coronavirus OC43 (PCR) (NotDetected) Coronavirus HKU1 (PCR) (NotDetected) Coronavirus 229E (PCR) (NotDetected) SARS-CoV-2 (PCR) (NotDetected) Coronavirus NL63 (PCR) (NotDetected) Human Metapneumovir PCR (NotDetected) Influenza Type A (PCR) (NotDetected) Influenza Type B (PCR) (NotDetected) M. pneumoniae (PCR) (NotDetected) Parainfluenza 1 (PCR) (NotDetected) Parainfluenza 2 (PCR) (NotDetected) Parainfluenza 3 (PCR) (NotDetected) Parainfluenza 4 (PCR) (NotDetected) RSV (PCR) (NotDetected) Entero/Rhino (PCR) (NotDetected) Draw and Hold Administered Medications Diltiazem HCl 125 mg/ Dextrose 125 mls @ 5 mls/hr IV .Q24H CINDY; Protocol Stop: 07/02/24 16:44 Last Admin: 06/02/24 16:49 Dose: 5 mg/hr, 5 mls/hr Documented By: TATE Co-signed By: CARMEN Discontinued Medications Diltiazem HCl (Diltiazem Hcl 5 Mg/Ml 5 Ml Vial) 10 mg IV NOW STA Stop: 06/02/24 15:28 Last Admin: 06/02/24 15:48 Dose: 10 mg Documented By: TATE Co-signed By: JOEY Diltiazem HCl (Diltiazem Hcl 5 Mg/Ml 5 Ml Vial) 10 mg IV NOW STA Stop: 06/02/24 16:04 Last Admin: 06/02/24 16:06 Dose: 10 mg Documented By: TATE Co-signed By: JOEY Sodium Chloride (Nss) 1,000 mls @ 999 mls/hr IV .Q1H1M CINDY Stop: 06/02/24 15:30 Last Infusion: 06/02/24 16:37 Dose: Infused Documented By: Admin: 06/02/24 14:46 Dose: 999 mls/hr Documented By: TATE Cefepime HCl (Maxipime 2000mg) 2,000 mg in 20 mls @ 5 mls/min IV NOW ONE Stop: 06/02/24 14:48 Last Admin: 06/02/24 15:04 Dose: 5 mls/min Documented By: TATE Vancomycin HCl 1,500 mg/ (Sodium Chloride) 530 mls @ 200 mls/hr IV NOW ONE Stop: 06/02/24 17:23 Last Admin: 06/02/24 14:55 Dose: 200 mls/hr Documented By: TATE Potassium Chloride (K Tim / Wtr) 10 meq in 100 mls @ 100 mls/hr IV ONE ONE; Protocol Stop: 06/02/24 15:58 Last Infusion: 06/02/24 16:37 Dose: Infused Documented By: Admin: 06/02/24 15:04 Dose: 100 mls/hr Documented By: TATE Magnesium Sulfate/Dextrose (Magnesium Sulfate / D5w) 1 gm in 100 mls @ 50 mls/hr IV ONE ONE Stop: 06/02/24 17:21 Last Admin: 06/02/24 15:48 Dose: 50 mls/hr Documented By: TATE Sodium Chloride (Nss) 1,000 mls @ 999 mls/hr IV .Q1H1M ONE Stop: 06/02/24 16:22 Last Infusion: 06/02/24 16:56 Dose: Infused Documented By: Admin: 06/02/24 15:48 Dose: 999 mls/hr Documented By: TATE Ioversol (Optiray 320 125ml) 119 ml IV ONCE ONE Stop: 06/02/24 15:42 Last Admin: 06/02/24 15:41 Dose: 119 ml Documented By: DAILY Levalbuterol HCl (Levalbuterol Hcl 0.63 Mg/3 Ml Neb) 0.63 mg NEB NOW STA; Protocol Stop: 06/02/24 14:36 Last Admin: 06/02/24 14:46 Dose: 0.63 mg Documented By: TATE Metoprolol Tartrate (Metoprolol Tartrate 1 Mg/Ml Vial) 5 mg IV NOW STA Stop: 06/02/24 16:45 Last Admin: 06/02/24 16:49 Dose: 5 mg Documented By: TATE Miscellaneous (Stat Iv Infusion Titration Per Protocol) 1 each N/A NOW STA Stop: 06/02/24 16:34 Last Admin: 06/02/24 16:37 Dose: Not Given Documented By: TATE Ondansetron HCl (Ondansetron Inj 2 Mg/Ml 2 Ml Vial) 4 mg IV NOW STA Stop: 06/02/24 14:35 Last Admin: 06/02/24 14:46 Dose: 4 mg Documented By: TATE Potassium Chloride (Potassium Chloride Crtab 20 Meq Tabcr) 20 meq PO NOW STA Stop: 06/02/24 15:00 Last Admin: 06/02/24 15:04 Dose: 20 meq Documented By: TATE Imaging Data Radiologist's Impression: Chest X-Ray 06/02/24 14:20 EXAM: Radiograph of the Chest 1 View INDICATION: Sepsis. TECHNIQUE: Frontal view of the chest. COMPARISON: 06/07/2020 FINDINGS: Lungs and pleural spaces: Interstitial fibrotic changes stable. There is slight increased prominence of asymmetric basal opacity projecting over the left lower lung. No pleural effusion or pneumothorax. Heart: Stable prominent cardiac shadow. Mediastinum: Normal contour. Bones/joints: No fracture, erosion or dislocation. Soft tissues: No abnormality noted. No radiopaque foreign body noted. Vasculature: Stable ectatic aorta. Upper abdomen: No abnormality noted. IMPRESSION: Fibrosis. Slight increased asymmetric density projecting over the left lung. This could reflect an infiltrate or worsening pleural thickening. ACT 112: Negative or not required by law. Electronically signed by Ophelia Moraes 06-02-2024 3:30 PM Chest CTA 06/02/24 15:25 EXAM: CT Angiography Chest With Intravenous Contrast INDICATION: Productive cough. Shortness of breath and chest tightness. TECHNIQUE: Axial computed tomographic angiography images of the chest with intravenous contrast. Sagittal and coronal reformatted images were created and reviewed. This CT exam was performed using one or more of the following dose reduction techniques: automated exposure control, adjustment of the mA and/or kV according to patient size, and/or use of iterative reconstruction technique. MIP reconstructed images were created and reviewed. CONTRAST: 119ml of Optiray 320 was administered intravenously. COMPARISON: No relevant prior studies available. FINDINGS: Pulmonary arteries: No abnormality noted. No pulmonary embolism. Aorta: No acute change noted. No thoracic aortic aneurysm or dissection. Other arteries: There are at least 2 rim calcified splenic artery aneurysms. 1 measures 1.5 x 0.9 cm and the other 1.4 x 0.9 cm. No hemorrhage. Lungs and pleural spaces: There is a mixed groundglass and consolidative infiltrate in the left upper lobe abutting the major fissure measuring roughly 7.0 cm AP by 4.3 cm transverse by 7.1 cm long. More dispersed peribronchial infiltrates noted throughout the left lower lobe and minimal patchy density identified in the more superior left upper lobe. There is a small focus of peribronchial infiltrate in the right upper lobe series 4 image 135 and minimally in the dependent right lower lobe. No pleural effusion or pneumothorax. Heart: Cardiomegaly. The left ventricle is hypertrophied. No pericardial effusion. No evidence of RV dysfunction. Bones/joints: Degenerative changes noted throughout the spine. No acute osseous abnormality seen. Soft tissues: No abnormality noted. Lymph nodes: Paratracheal, aortopulmonary, precarinal, subcarinal and bilateral hilar adenopathy present. Largest node is in the left hilum and measures 1.6 cm short axis dimension. IMPRESSION: 1. Significant multifocal left pneumonia. Small patchy foci of peribronchial pneumonia noted in the right upper and lower lobes. 2. No pulmonary embolus identified. 3. Multicompartment adenopathy. 4. There are multiple splenic artery aneurysms measuring up to 1.5 cm without hemorrhage. ACR White Paper guidelines (Tram, et al. JACR 2013; 10(10):783-58) suggest annual abdominal CT or MR follow-up. ACT 112: Negative or not required by law. Electronically signed by Dimitry Ophelia 06-02-2024 3:56 PM Discharge Plan Visit Data Chief Complaint: Shortness of Breath/Dyspnea Stated Complaint: PNEMONIA, AUTO IMMUNE DISEASE, SOB ED Provider: Mo Cook Discharge Problem: Sepsis, Acute respiratory distress, Atrial fibrillation with rapid ventricular response, Community acquired pneumonia Patient Disposition: Admitted As Inpatient Discharge Instructions Interventions: ED Discharge Assessment Last Done: 06/02/24 17:22 Forms Stand Alone Forms: My [facility] Prescriptions Prescriptions: No Action mycophenolate mofetil [CellCept] 500 mg Tablet 500 mg PO UD Patient Comments: 1 DOSE IN QAM/ 2 TABS IN QPM Rx Instructions: Take 500mg by mouth in the morning and 1000mg by mouth in the evening hydroxychloroquine 200 mg Tablet 200 mg PO BID albuterol sulfate 90 mcg/actuation Hfa Aerosol Inhaler 1 inh INHALATION QID PRN (Reason: SHORT OF BREATH) esomeprazole magnesium [Nexium] 20 mg Capsule,Delayed Release(Dr/Ec) 20 mg PO BID budesonide-formoterol [Symbicort] 160-4.5 mcg/actuation Hfa Aerosol Inhaler 2 puff INHALATION BID PRN (Reason: SHORT OF BREATH) cholecalciferol (vitamin D3) [Vitamin D3] 125 mcg (5,000 unit) Tablet 125 mcg PO QAM melatonin 3 mg Tablet 3 mg PO HS PRN (Reason: Sleep) nystatin 100,000 unit/mL suspension 500,000 unit PO UD Rx Instructions: Swish and Swallow four times daily metoprolol succinate 50 mg tablet extended release 24 hr 50 mg PO HS acetaminophen [Tylenol Ex Str Rapid Release] 500 mg Tablet 500 mg PO Q6H PRN (Reason: Pain) potassium chloride 20 mEq tablet,ER particles/crystals 20 meq PO DAILY famotidine [Pepcid] 20 mg Tablet 20 mg PO HS hydrochlorothiazide 25 mg tablet 25 mg PO DAILY Referrals Referrals: Saroj Kong [Primary Care Provider] -
[2024-06-02] MEDS: VANCOMYCIN HCL 1,500 MG in SODIUM CHLORIDE 0.9% 500 ML IV ONE (14:55)
[2024-06-02 14:56] LABS: iSTAT Creatinine 0.9 mg/dl (0.6-1.3); iSTAT Hemoglobin 12.9 g/dl (12.0-16.0); iSTAT Ionized Calcium 1.27 mmol/l (1.12-1.32)
[2024-06-02] MEDS: POTASSIUM CHLORIDE / WTR 10 MEQ/100 ML PLCT IV ONE (15:04)
[2024-06-02] MEDS: POTASSIUM CHLORIDE CRTAB 20 MEQ TABCR PO STA (15:04)
[2024-06-02] MEDS: CEFEPIME 2000MG 2,000 MG/20 ML SYR IV ONE (15:04)
[2024-06-02 15:17] LABS: Albumin Level 4.3 gm/dl (3.4-5.0); BUN Creatinine Ratio 20.2 (10-20); Bilirubin Direct 0.3 mg/dl (0-0.2); Bilirubin,Total 1.3 mg/dl (0.2-1.0); Calcium 10.8 mg/dl (8.6-10.3); Creatinine Clr Calc Pharmacy 61.1 ml/min; Magnesium 1.4 mg/dl (1.7-2.4); Total Protein 6.6 gm/dl (6.0-8.3)
--- NOTE | 2024-06-02 15:30 | XRay Report ---
EXAM: Radiograph of the Chest 1 View INDICATION: Sepsis. TECHNIQUE: Frontal view of the chest. COMPARISON: 06/07/2020 FINDINGS: Lungs and pleural spaces: Interstitial fibrotic changes stable. There is slight increased prominence of asymmetric basal opacity projecting over the left lower lung. No pleural effusion or pneumothorax. Heart: Stable prominent cardiac shadow. Mediastinum: Normal contour. Bones/joints: No fracture, erosion or dislocation. Soft tissues: No abnormality noted. No radiopaque foreign body noted. Vasculature: Stable ectatic aorta. Upper abdomen: No abnormality noted. IMPRESSION: Fibrosis. Slight increased asymmetric density projecting over the left lung. This could reflect an infiltrate or worsening pleural thickening. ACT 112: Negative or not required by law. Electronically signed by Ophelia Moraes 06-02-2024 3:30 PM
[2024-06-02 15:31] LABS: Troponin I High Sensitivity 53.5 pg/ml (0-14)
[2024-06-02 15:37] LABS: Hematocrit (blood only) 30.7 % (37.0-47.0); Hemoglobin 13.3 g/dl (12.0-16.0); Mean Corpuscular Hemoglobin 29.6 pg (25.0-34.0); Mean Corpuscular Volume 92.2 fL (80.0-100.0); Mean Platelet Volume 10.7 fL (9.4-12.4); Platelet Count 174 K/uL (130-400); RDW Coefficient of Variation 19.4 % (11.5-14.5); RDW Standard Deviation 49.5 fL (36.4-46.3); Red Blood Count 3.33 M/uL (4.20-5.40); White Blood Count 8.96 K/ul (4.8-10.8)
[2024-06-02] MEDS: OPTIRAY 320 125ml IV ONE (15:41)
[2024-06-02 15:44] LABS: Adenovirus PCR Not Detected (NotDetected); Bordetella parapertussis PCR Not Detected (NotDetected); Bordetella pertussis PCR Not Detected (NotDetected); Chlamydia pneumoniae PCR Not Detected (NotDetected); Coronavirus 229E PCR Not Detected (NotDetected); Coronavirus CoV-2 (COVID19)PCR Not Detected (NotDetected); Coronavirus HKU1 PCR Not Detected (NotDetected); Coronavirus NL63 PCR Not Detected (NotDetected); Coronavirus OC43PCR Not Detected (NotDetected); Human Metapneumovirus PCR Not Detected (NotDetected); Influenza A PCR Not Detected (NotDetected); Influenza B PCR Not Detected (NotDetected); Mycoplasma pneumoniae PCR Not Detected (NotDetected); Parainfluenza Virus 1 PCR Not Detected (NotDetected); Parainfluenza Virus 2 PCR Not Detected (NotDetected); Parainfluenza Virus 3 PCR Not Detected (NotDetected); Parainfluenza Virus 4 PCR Not Detected (NotDetected); Respiratory Syncytial VirusPCR Not Detected (NotDetected); Rhinovirus/Enterovirus PCR Not Detected (NotDetected)
[2024-06-02] MEDS: SODIUM CHLORIDE 0.9% 1,000 ML IV ONE (15:48)
[2024-06-02] MEDS: dilTIAZem HCl 5 MG/ML 5 ML VIAL IV STA ×2 (15:48→16:06)
[2024-06-02] MEDS: MAGNESIUM SULFATE / D5W 1 GM/100 ML BAG IV ONE (15:48)
[2024-06-02 15:54] LABS: Appearance Urine Clear (Clear); Bacteria Urine Automated 4+ (None Seen); Bilirubin Urine Negative (Negative); Blood Urine Negative (Negative); Cast Urine Automated 0-2 /lpf (0-2); Color Urine Yellow; Epithelial Cell Urine Auto 0-2 /hpf (0-2); Glucose Urine UA Negative (Negative); Ketones Urine Trace (Negative); Leukocyte Esterase Urine Trace (Negative); Nitrite Urine Positive (Negative); Protein Urine Negative (Negative); RBC Urine Automated 0-2 /hpf (0-2); Specific Gravity Urine 1.022 (1.000-1.030); Urobilinogen Urine Negative (Negative); WBC Urine Automated 0-5 /hpf (0-5); pH Urine 5.5 (4.5-7.5)
[2024-06-02 15:55] LABS: Basophils # (auto) 0.01 K/uL (0.00-0.20); Basophils % (auto) 0.1 %; Immature Granulocytes # (auto) 0.03 K/uL (0.01-0.20); Immature Granulocytes % (auto) 0.3 %; Lymphocytes # (auto) 0.32 K/uL (1.20-3.40); Lymphocytes % (auto) 3.6 %; Monocytes # (auto) 0.55 K/uL (0.11-0.59); Monocytes % (auto) 6.1 %; Neutrophils # (auto) 8.05 K/uL (1.40-6.50); Neutrophils % (auto) 89.9 %; RBC Morphology Unremarkable
--- NOTE | 2024-06-02 15:56 | CT Scan Report ---
EXAM: CT Angiography Chest With Intravenous Contrast INDICATION: Productive cough. Shortness of breath and chest tightness. TECHNIQUE: Axial computed tomographic angiography images of the chest with intravenous contrast. Sagittal and coronal reformatted images were created and reviewed. This CT exam was performed using one or more of the following dose reduction techniques: automated exposure control, adjustment of the mA and/or kV according to patient size, and/or use of iterative reconstruction technique. MIP reconstructed images were created and reviewed. CONTRAST: 119ml of Optiray 320 was administered intravenously. COMPARISON: No relevant prior studies available. FINDINGS: Pulmonary arteries: No abnormality noted. No pulmonary embolism. Aorta: No acute change noted. No thoracic aortic aneurysm or dissection. Other arteries: There are at least 2 rim calcified splenic artery aneurysms. 1 measures 1.5 x 0.9 cm and the other 1.4 x 0.9 cm. No hemorrhage. Lungs and pleural spaces: There is a mixed groundglass and consolidative infiltrate in the left upper lobe abutting the major fissure measuring roughly 7.0 cm AP by 4.3 cm transverse by 7.1 cm long. More dispersed peribronchial infiltrates noted throughout the left lower lobe and minimal patchy density identified in the more superior left upper lobe. There is a small focus of peribronchial infiltrate in the right upper lobe series 4 image 135 and minimally in the dependent right lower lobe. No pleural effusion or pneumothorax. Heart: Cardiomegaly. The left ventricle is hypertrophied. No pericardial effusion. No evidence of RV dysfunction. Bones/joints: Degenerative changes noted throughout the spine. No acute osseous abnormality seen. Soft tissues: No abnormality noted. Lymph nodes: Paratracheal, aortopulmonary, precarinal, subcarinal and bilateral hilar adenopathy present. Largest node is in the left hilum and measures 1.6 cm short axis dimension. IMPRESSION: 1. Significant multifocal left pneumonia. Small patchy foci of peribronchial pneumonia noted in the right upper and lower lobes. 2. No pulmonary embolus identified. 3. Multicompartment adenopathy. 4. There are multiple splenic artery aneurysms measuring up to 1.5 cm without hemorrhage. ACR White Paper guidelines (Tram et al. JACR 2013; 10(10):789-94) suggest annual abdominal CT or MR follow-up. ACT 112: Negative or not required by law. Electronically signed by Ophelia Moraes 06-02-2024 3:56 PM
[2024-06-02] MEDS: STAT IV Infusion **Titration per Protocol STA (16:37)
[2024-06-02] MEDS: METOPROLOL TARTRATE 1 MG/ML VIAL IV STA (16:49)
[2024-06-02] MEDS: dilTIAZem HCL 125 MG in DEXTROSE 5% 100 ML IV SCH (16:49)
--- NOTE | 2024-06-02 17:05 | History & Physical Report ---
Date of Service June 02, 2024 Assessment & Plan (1) Severe sepsis with acute organ dysfunction: (2) Multifocal pneumonia: (3) Atrial fibrillation with rapid ventricular response: (4) Hypoxic respiratory failure: (5) Immunosuppression due to drug therapy: (6) Demand ischemia of myocardium: (7) Hypokalemia: (8) Hypomagnesemia: (9) Scleroderma: (10) Chronic fibrosis of lung: (11) Lupus (systemic lupus erythematosus): Plan Patient is critically ill from presumed left upper lobe pneumonia with organ dysfunction as evidenced by demand ischemia, tachycardia/atrial fibrillation and hypoxia. Admit to the PCU IV antibiotics Oxygen support IV steroids Attempt to control heart rate with IV Cardizem and metoprolol, increase her oral metoprolol dosing Lovenox full dose therapy at this time for atrial fibrillation until determined definitive rhythm and long-term need for anticoagulation Aggressive mucolytic's and antitussives Continue fluid resuscitation Follow cultures Replace potassium and magnesium History of Present Illness Chief Complaint: Cough and shortness of breath Primary Care Provider: Saroj Kong Patient is a 74-year-old female who has been having a cough for the entire month of May. Saw her PCP earlier May for a cough and was treated with Levaquin, metronidazole. She continued to have a cough and some shortness of breath. She was given a course of prednisone and Decadron. She was also treated with Robitussin with codeine and Tessalon Perles for her cough. She also reports that she has been having diarrhea loose and watery essentially the whole month. It actually has gotten better over the last couple days. She denies any blood in the stool. She has seen her PCP 3 times this month for these complaints. Most recently this past week. They were thinking that maybe she was having severe reflux as a cause of her cough and was working on potentially getting a GI evaluation. Today the patient was so weak it was hard for her to stand and walk. She felt a bit woozy and came to the emergency room for evaluation. In the emergency room she was noted to be hypotensive tachycardic. EKG possibly atrial fibrillation. She was referred to our service for further evaluation. Patient denies any fevers. No purulence to her cough. Has not really had any fevers that she is aware of. Denies any new bladder issues. Did confirm the diarrhea as mentioned above. May not have been eating and drinking quite as well as she usually does. She follows with a beater operator at [facility] from when she had her pregnancies apparently she had some SVT. She is on chronic metoprolol. However she did not think she has ever been told that she has atrial fibrillation. Outside EMR shows a Holter monitor from 2013 which showed sinus rhythm with some short bursts of SVT. No atrial fibrillation noted. She is not on any anticoagulation. No one has ever m entioned this to her. She denies any chest pain. She is on Symbicort chronically for her pulmonary fibrosis. Her albuterol inhaler has just made her jittery but has not really helped a lot with her shortness of breath. Allergies Allergy/AdvReac Type Severity Reaction Status Date / Time latex Allergy Mild SKIN Verified 06/02/24 16:31 IRRITATION levofloxacin [From Levaquin] AdvReac Severe Diarrhea Unverified 06/02/24 16:31 metronidazole AdvReac Severe Diarrhea Unverified 06/02/24 16:31 adhesive tape AdvReac Mild SKIN Verified 06/02/24 16:31 REDNESS Home Medications Medication Instructions Recorded Confirmed Type albuterol sulfate 90 mcg/actuation 1 inh inhalation QID PRN SHORT OF 10/31/20 06/02/24 History aerosol inhaler BREATH budesonide-formoterol HFA 160 2 puff inhalation BID PRN SHORT OF 10/31/20 06/02/24 History mcg-4.5 mcg/actuation aerosol BREATH inhaler (Symbicort) cholecalciferol (vitamin D3) 125 125 mcg PO QAM 10/31/20 06/02/24 History mcg (5,000 unit) tablet (Vitamin D3) esomeprazole magnesium 20 mg 20 mg PO BID 10/31/20 06/02/24 History capsule,delayed release (Nexium) hydroxychloroquine 200 mg tablet 200 mg PO BID 10/31/20 06/02/24 History mycophenolate mofetil 500 mg 500 mg PO UD 10/31/20 06/02/24 History tablet (CellCept) melatonin 3 mg tablet 3 mg PO HS PRN Sleep 07/03/23 06/02/24 History acetaminophen 500 mg tablet 500 mg PO Q6H PRN Pain 06/02/24 06/02/24 History famotidine 20 mg tablet (Pepcid) 20 mg PO HS 06/02/24 06/02/24 History hydrochlorothiazide 25 mg tablet 25 mg PO DAILY 06/02/24 06/02/24 History metoprolol succinate 50 mg 50 mg PO HS 06/02/24 06/02/24 History tablet,extended release 24 hr nystatin 100,000 unit/mL oral 500,000 unit PO UD 06/02/24 06/02/24 History suspension potassium chloride 20 mEq 20 meq PO DAILY 06/02/24 06/02/24 History tablet,extended release(part/cryst) Past Med/Surg History Problem List (Updated 06/02/24 @ 17:09 by Tucker Gonzalez DO) Hypoxic respiratory failure Immunosuppression due to drug therapy Chronic fibrosis of lung Hypomagnesemia Hypokalemia Demand ischemia of myocardium Severe sepsis with acute organ dysfunction Multifocal pneumonia Community acquired pneumonia (Acute) Atrial fibrillation with rapid ventricular response (Acute) Acute respiratory distress (Acute) Sepsis (Acute) Weakness Encounter for pre-operative examination COVID-19 (Acute) Pneumonia (Acute) Medical History Hx of endometriosis Degenerative disc disease Osteoarthritis History of kidney stones Esophageal dilatation HX OF Dysphagia GERD (gastroesophageal reflux disease) History of anemia Irregular heart rate follows w/ Dr Owen History of COVID-19 06/22/23- home test-resolved Hx of recurrent pneumonia reason for inhaler- Hypertension Lupus (systemic lupus erythematosus) Scleroderma affects lungs, reason for cellcept Surgical History History of anesthesia reaction EPIDURAL WITH LABOR (WENT INTO RESPIRATORY ARREST D/T "GOING BOTH WAYS") History of esophagogastroduodenoscopy (EGD) History of colonoscopy H/O total hysterectomy History of section X 1 Hx of basal cell carcinoma excision LEG History of nasal septoplasty History of tooth extraction History of cataract surgery RT/LEFT Family History Grandmother (Maternal) Family hx of colon cancer Other No family history of adverse response to anesthesia Social History Smoking Status: Never smoker Second Hand Exposure: Yes ( A CHILD); Do You Dip or Chew Tobacco: No; Hx Alcohol Use: Yes Alcohol type: wine and hard liquor Hx Substance Use: No Preferred Language: Turkish Communication Ability: Effective Acid Correction Hand Required: No Beliefs That Will Affect Care: None Current Living Situation: Spouse Feels Safe at Home: Yes Assistive Devices: None Review of Systems Review of Systems: Pertinent positive and negative review of systems as mentioned in the HPI Physical Exam Physical Exam: Constitutional: Alert, ill in appearance, nontoxic HEENT: Mucous membranes dry sclera clear Neck: Soft, no adenopathy Lungs: Decreased breath sounds, poor airflow, tight airflow, coarse rhonchi throughout, expiratory wheezes CV: S1-S2, irregular, tachycardic Abdomen: Soft, nontender, nondistended Extremities: No significant edema Musculoskeletal: No significant joint tenderness Neuro: No focal deficits Psych: Cooperative, normal mood Results & Data Results & Data Vital Signs (Past 12 Hours) Vital Signs Temp Pulse Pulse Resp BP BP Pulse Ox 06/02/24 16:49 124 H 121/98 06/02/24 16:48 128 H 22 121/98 93 06/02/24 16:35 152 H 20 121/98 92 06/02/24 16:05 146 H 22 123/82 93 06/02/24 15:56 149 H 22 142/78 H 91 06/02/24 15:16 167 H 22 121/89 94 06/02/24 15:11 156 H 20 121/89 94 06/02/24 14:53 154 H 22 121/89 98 06/02/24 14:37 155 H 20 99/79 L 94 06/02/24 14:35 156 H 06/02/24 14:30 159 H 20 94 06/02/24 14:30 156 H 20 99/79 L 95 06/02/24 14:30 89 L 06/02/24 14:13 37.6 C H 157 H 20 113/78 90 O2 Del Method O2 Flow Rate 06/02/24 16:49 06/02/24 16:48 Nasal Cannula 3 06/02/24 16:35 Nasal Cannula 3 06/02/24 16:05 Nasal Cannula 3 06/02/24 15:56 Nasal Cannula 3 06/02/24 15:16 Nasal Cannula 3 06/02/24 15:11 Nasal Cannula 3 06/02/24 14:53 Nebulizer 06/02/24 14:37 Nasal Cannula 3 06/02/24 14:35 06/02/24 14:30 Nasal Cannula 3 06/02/24 14:30 Nasal Cannula 95 06/02/24 14:30 Room Air, Nasal Cannula 0 06/02/24 14:13 Room Air Diagnostic Findings Reviewed imaging, laboratory and diagnostic studies. Pertinent findings as below. Personally reviewed chest x-ray some chronic changes at bases Personally reviewed EKG: Rate 158 bpm irregular, right bundle branch block possible atrial fibrillation Respiratory viral panel negative Urinalysis does have some nitrates some trace esterase and 4+ bacteria Magnesium 1.4 Potassium 3.0 Lactate 1.6 Procalcitonin 0.46 Hemoglobin 13.3 WBCs 8.9 Reviewed recent echocardiogram from March 2024. Normal ejection fraction, no significant abnormalities Reviewed outside EMR reviewed out patient PCP notes
[2024-06-02] MEDS ORDERED: MAGNESIUM HYDROXIDE SUSP 30 ML UDC PO PRN (18:34)
[2024-06-02] MEDS ORDERED: methylPREDNISolone 125 MG/2 ML VIAL IV SCH (18:34)
[2024-06-02] MEDS ORDERED: ACETAMINOPHEN 325 MG TAB PO PRN (18:34)
[2024-06-02] MEDS ORDERED: methylPREDNISolone 125 MG/2 ML VIAL IV STA (18:34)
[2024-06-02] MEDS ORDERED: ONDANSETRON INJ 2 MG/ML 2 ML VIAL IV PRN (18:34)
[2024-06-02] MEDS ORDERED: ENOXAPARIN 1 MG/KG SQ SCH (18:34)
[2024-06-02] MEDS ORDERED: HYDROcodone/HOMATROPINE SYRUP 5MG/1.5MG 5ML UDP PO PRN (18:34)
[2024-06-02] MEDS ORDERED: MELATONIN 3 MG TAB PO PRN (18:34)
[2024-06-02] MEDS ORDERED: ALUMINUM/MAGNESIUM SUSP 30 ML UDC PO PRN (18:34)
[2024-06-02] MEDS: HYDROcodone/HOMATROPINE SYRUP 5MG/1.5MG 5ML UDP PO STA (19:50)
[2024-06-02] MEDS: MAGNESIUM SULFATE / D5W 1 GM/100 ML BAG IV SCH (19:50)
[2024-06-02] MEDS: METOPROLOL TARTRATE 25 MG TAB PO SCH (19:52)
[2024-06-02] MEDS: POTASSIUM CHLORIDE CRTAB 20 MEQ TABCR PO SCH (19:53)
[2024-06-02] MEDS: SODIUM CHLORIDE 0.9% 500 ML IV SCH (19:55)
[2024-06-02] MEDS: SODIUM CHLORIDE 0.9% 500 ML IV ONE (19:55)
[2024-06-02] MEDS: methylPREDNISolone 125 MG in SYRINGE 0 ML IV ONE (19:56)
[2024-06-02] MEDS: FLUTICASONE/VILANTEROL 100/25MCG 14 PUFFS/INHALER INH SCH (19:56)
[2024-06-02] MEDS: ENOXAPARIN 80 MG/0.8 ML SYR SQ SCH (19:56)
[2024-06-02] MEDS: BENZONATATE 100 MG CAPSULE PO SCH (20:05)
[2024-06-02] MEDS: DOXYCYCLINE HYCLATE 100 MG CAP PO SCH (20:05)
[2024-06-02] MEDS: FAMOTIDINE 20 MG TAB PO SCH (20:06)
[2024-06-02] MEDS: guaiFENesin 600 MG TABCR PO SCH (20:06)
[2024-06-02] MEDS: HYDROXYCHLOROQUINE SULFATE 200 MG TAB PO SCH (20:06)
[2024-06-02] MEDS: MAGNESIUM OXIDE 400 MG TAB PO SCH (20:06)
[2024-06-02] MEDS: PANTOprazole 40 MG TAB PO SCH (20:06)
[2024-06-02] MEDS: IPRATROPIUM BROMIDE NEB SOLN 0.02% 0.5MG/2.5ML VIAL NEB SCH (20:29)
[2024-06-02] MEDS ORDERED: Nursing to Pharmacy Communication SCH (21:45)
[2024-06-02] MEDS: CEFEPIME 2000MG 2,000 MG/20 ML SYR IV SCH (23:30)
[2024-06-03] MEDS: methylPREDNISolone 40 MG in SYRINGE 0 ML IV SCH (02:29)
[2024-06-03] MEDS: NSS + 20MEQ KCL 20 MEQ/1,000 ML BAG IV ONE (03:43)
[2024-06-03 04:50] LABS: BUN Creatinine Ratio 19.2 (10-20); Calcium 9.4 mg/dl (8.6-10.3); Creatinine Clr Calc Pharmacy 70.8 ml/min; Magnesium 2.5 mg/dl (1.7-2.4); Potassium 3.8 mmol/L (3.5-5.1)
[2024-06-03 05:08] LABS: Hematocrit (blood only) 28.5 % (37.0-47.0); Hemoglobin 11.1 g/dl (12.0-16.0); Mean Corpuscular Hemoglobin 27.3 pg (25.0-34.0); Mean Corpuscular Hgb Conc 31.7 g/dL (32.0-36.0); Mean Corpuscular Volume 95.6 fL (80.0-100.0); Mean Platelet Volume 10.7 fL (9.4-12.4); Platelet Count 138 K/uL (130-400); RDW Coefficient of Variation 19.8 % (11.5-14.5); RDW Standard Deviation 50.8 fL (36.4-46.3); Red Blood Count 2.98 M/uL (4.20-5.40); White Blood Count 8.49 K/ul (4.8-10.8)
[2024-06-03 07:45] LABS: A calco-baum cmplx NotReported Not Detected (NotDetected); Bact fragilis Not Reported Not Detected (NotDetected); Blood Culture Id Panel See PCR Comment (NotDetected); C auris Not Reported Not Detected (NotDetected); Calbicans Not Reported Not Detected (NotDetected); Candida glabrata Not Reported Not Detected (NotDetected); Candida krusei Not Reported Not Detected (NotDetected); Cneoformans/gatti Not Reported Not Detected (NotDetected); Cparapsilosis Not Reported Not Detected (NotDetected); E cloacae compx Not Reported Not Detected (NotDetected); Efaecalis Not Reported Not Detected (NotDetected); Efaecium Not Reported Not Detected (NotDetected); Enterobacterales Not Reported Not Detected (NotDetected); Escherichia coli Not Reported Not Detected (NotDetected); H influenzae Not Reported Not Detected (NotDetected); K aerogenes Not Reported Not Detected (NotDetected); Koxytoca Not Reported Not Detected (NotDetected); Kpneumoniae grp Not Reported Not Detected (NotDetected); Lmonocyt Not Reported Not Detected (NotDetected); N meningitidis Not Reported Not Detected (NotDetected); P aeruginosa Not Reported Not Detected (NotDetected); Proteus spp Not Reported Not Detected (NotDetected); Salmonella spp Not Reported Not Detected (NotDetected); Staph lugdunensis Not Reported Not Detected (NotDetected); Staph spp. Not Reported Not Detected (NotDetected); Staphaureus Not Reported Not Detected (NotDetected); Staphepi Not Reported Not Detected (NotDetected); Stenmaltophilia Not Reported Not Detected (NotDetected); Strep agal(GrpB) Not Reported Not Detected (NotDetected); Strep pneum Not Reported DETECTED (NotDetected); Strep pyog (GrpA) Not Reported Not Detected (NotDetected); Strep spp Not Reported DETECTED (NotDetected); Streptococcus spp DETECTED (NotDetected)
[2024-06-03 07:54] LABS: Streptococcus pneumoniae DETECTED (NotDetected)
--- NOTE | 2024-06-03 14:31 | Hospitalist Progress Note ---
Date of Service June 03, 2024 Assessment & Plan (1) Severe sepsis with acute organ dysfunction: (2) Multifocal pneumonia: (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 Patient reported having cough since about a month [employer], productive of greenish-yellow sputum, she continued to have progressive worsening of cough and started becoming weaker and was febrile on the day of arrival. She was treated with Levaquin and metronidazole early May for cough. She was noted to be in afib rvr at presentation. She is being managed for the following: Pneumonia Sepsis secondary to pneumonia Patient presenting with cough for about a month, worsening with green-yellow sputum, fever/nausea/vomiting/profound weakness just prior to arrival. At admission, respiratory rate and heart rate elevated. Lactate and procalcitonin WNL. Patient apparently hypoxic at presentation needing up to 2 to 3 L oxygen. Patient was started on solu Medrol, cefepime and doxycycline 06/02, continue atb. Add probiotic. Wean down steroid. Follow admitting blood culture. Send sputum culture. Patient currently on room air. Patient reports clinically feeling better, reports weakness/nausea/vomiting/appetite improving, reports cough improving. Continue with new colitis and antitussives. Complicated UTI: Patient reports pain and burning with passing urine and increased frequency prior to arrival. Patient on antibiotic as above. Follow urine culture. Bacteremia: 06/02 blood culture positive for gram-positive cocci in chains, repeat blood culture sent 06/03 at 24-hour juan a. Patient on antibiotic as above. Source unknown. Follow culture and sensitivity. ID consult. A-fib RVR: Noted in the ED at presentation likely secondary to acute illness as above. Status post Cardizem bolus and drip in the ED. Patient started on therapeutic Lovenox, continue for now. Cardiology consult, she follows [facility] cardiology. No further A-fib RVR on telemetry monitoring. Home metoprolol dose increased, continue. Monitor replete electrolytes. Demand Ischemia: Troponin elevated at 53, flat trended. Patient with no chest pain. Continue telemetry monitoring. DVT Px: pt on therapeutic lovenox due to afib rvr. Admission and Anticipated Discharge Date Admission Date: June 02, 2024 Subjective Patient was seen and examined at bedside. Patient was lying in bed, on 2L NC O2, NAD, resting comfortably. Patient reports appetite improving today, denies further nausea and vomiting here, reported pain and burning while passing urine prior to arrival along with increased frequency which is getting better now per her. Patient reports feeling overall better, reports cough getting better. On chart review, patient's temperature is getting better. Physical Exam Physical Exam: GENERAL: Alert and oriented x3. NAD, on 2L NC O2 HEENT: No pallor, no icterus. Pupils equal, round and reactive to light. Oral mucosa moist. NECK: No JVD, no neck masses. HEART: S1 and S2 heard. Regular rate and rhythm. No murmur, no gallop. RESPIRATORY SYSTEM: Normal AP diameter. No accessory muscle use. No wheezing, b/l crackles. ABDOMEN: Soft, bowel sounds present, nontender, no distention. CENTRAL NERVOUS SYSTEM: No facial droop. Speech is clear. Obeys simple commands. Moves extremities. EXTREMITIES: No edema, no erythema seen. Results & Data Results & Data Vital Signs (Past 12 Hours) Vital Signs Temp Pulse Pulse Resp BP Pulse Ox O2 Del Method 06/03/24 14:22 75 06/03/24 13:12 90 20 92 Room Air 06/03/24 10:46 36.5 C 74 17 111/73 96 Nasal Cannula 06/03/24 08:35 Nasal Cannula 06/03/24 07:35 36.3 C L 64 19 105/69 92 Nasal Cannula 06/03/24 07:24 59 L 06/03/24 07:22 68 17 93 Nasal Cannula 06/03/24 03:30 102/66 06/03/24 02:38 36.4 C L 70 18 116/66 92 Nasal Cannula O2 Flow Rate 06/03/24 14:22 06/03/24 13:12 06/03/24 10:46 2 06/03/24 08:35 3 06/03/24 07:35 06/03/24 07:24 06/03/24 07:22 2.5 06/03/24 03:30 06/03/24 02:38 3
[2024-06-04 05:08] LABS: BUN Creatinine Ratio 25.8 (10-20); Calcium 10.2 mg/dl (8.6-10.3); Creatinine Clr Calc Pharmacy 78.4 ml/min; Phosphorus 1.9 mg/dl (2.5-4.9)
[2024-06-04 05:57] LABS: Hematocrit (blood only) 27.2 % (37.0-47.0); Hemoglobin 9.9 g/dl (12.0-16.0); Mean Corpuscular Hgb Conc 32.2 g/dL (32.0-36.0); Mean Corpuscular Volume 94.4 fL (80.0-100.0); Mean Platelet Volume 10.8 fL (9.4-12.4); Platelet Count 146 K/uL (130-400); RDW Coefficient of Variation 18.9 % (11.5-14.5); RDW Standard Deviation 50.1 fL (36.4-46.3); Red Blood Count 2.88 M/uL (4.20-5.40); White Blood Count 7.17 K/ul (4.8-10.8)
--- NOTE | 2024-06-04 07:23 | Electrocardiogram Report ---
Test Reason : Blood Pressure : */* mmHG Vent. Rate : 158 BPM Atrial Rate : * BPM P-R Int : * ms QRS Dur : 130 ms QT Int : 346 ms P-R-T Axes : * 110 -28 degrees QTcB Int : 561 ms Atrial fibrillation with rapid ventricular response Right bundle branch block T wave abnormality, consider inferior ischemia Abnormal ECG When compared with ECG of 07-Jun-2020 12:29, Atrial fibrillation has replaced Sinus rhythm Vent. rate has increased by 75 bpm Confirmed by Morgan Dozier ([id number]) on 06/04/2024 7:23:17 AM Referred By: Confirmed By: Morgan Dozier
--- NOTE | 2024-06-04 07:27 | Electrocardiogram Report ---
Test Reason : Blood Pressure : */* mmHG Vent. Rate : 104 BPM Atrial Rate : 104 BPM P-R Int : 164 ms QRS Dur : 134 ms QT Int : 364 ms P-R-T Axes : 65 6 -15 degrees QTcB Int : 478 ms Sinus tachycardia with Premature supraventricular complexes and with occasional Premature ventricular complexes Right bundle branch block T wave abnormality, consider inferior ischemia Abnormal ECG When compared with ECG of 02-Jun-2024 14:30, (unconfirmed) Sinus rhythm has replaced Atrial fibrillation Vent. rate has decreased by 54 bpm QRS axis Shifted left ST no longer depressed in Inferior leads ST no longer depressed in Anterior leads Confirmed by Morgan Dozier ([id number]) on 06/04/2024 7:26:33 AM Referred By: REFERRED SELF Confirmed By: Morgan Dozier
--- NOTE | 2024-06-04 07:49 | Electrocardiogram Report ---
Test Reason : Blood Pressure : */* mmHG Vent. Rate : 74 BPM Atrial Rate : 74 BPM P-R Int : 168 ms QRS Dur : 134 ms QT Int : 418 ms P-R-T Axes : 74 42 -3 degrees QTcB Int : 463 ms Sinus rhythm with Premature atrial complexes Right bundle branch block Abnormal ECG When compared with ECG of 02-Jun-2024 17:06, (unconfirmed) Premature ventricular complexes are no longer Present Confirmed by Morgan Dozier ([id number]) on 06/04/2024 7:48:41 AM Referred By: REFERRED SELF Confirmed By: Morgan Dozier
[2024-06-04] MEDS: ADVANCED PROBIOTIC 625 MG CAPSULE PO SCH (08:48)
[2024-06-04] MEDS: methylPREDNISolone 40 MG in SYRINGE 0 ML IV SCH (09:02)
[2024-06-04] MEDS: POT PHOSPHATE MONOBASIC W/ SOD TAB PO SCH (10:23)
--- NOTE | 2024-06-04 15:21 | Hospitalist Progress Note ---
Date of Service June 04, 2024 Assessment & Plan (1) Severe sepsis with acute organ dysfunction: (2) Multifocal pneumonia: (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 Patient reported having cough since about a month [employer] PROF[employer], productive of greenish-yellow sputum, she continued to have progressive worsening of cough and started becoming weaker and was febrile on the day of arrival. She was treated with Levaquin and metronidazole early May for cough. She was noted to be in afib rvr at presentation. She is being managed for the following: Pneumonia Sepsis secondary to pneumonia Patient presenting with cough for about a month, worsening with green-yellow sputum, fever/nausea/vomiting/profound weakness just prior to arrival. At admission, respiratory rate and heart rate elevated. Lactate and procalcitonin WNL. Patient apparently hypoxic at presentation needing up to 2 to 3 L oxygen. Patient was started on solu Medrol, cefepime and doxycycline 06/02, continue atb. Add probiotic. Wean down steroid to PO 06/04. Follow admitting blood culture. Send sputum culture. Patient currently on room air. Patient reports clinically feeling better, reports weakness/nausea/vomiting/appetite improving, reports cough improving. Continue with new colitis and antitussives. Complicated UTI: Patient reports pain and burning with passing urine and increased frequency prior to arrival. Patient on antibiotic as above. Follow urine culture. Bacteremia: 06/02 blood culture positive for gram-positive cocci in chains, repeat blood culture sent 06/03 at 24-hour juan a. Patient on antibiotic as above. Follow culture and sensitivity. ID consult. A-fib RVR: Noted in the ED at presentation likely secondary to acute illness as above. Status post Cardizem bolus and drip in the ED. Patient started on therapeutic Lovenox, continue for now. Cardiology consult, she follows [facility]. Home metoprolol dose increased, continue. Monitor replete electrolytes. Demand Ischemia: Troponin elevated at 53, flat trended. Patient with no chest pain. Continue telemetry monitoring. DVT Px: pt on therapeutic lovenox due to afib rvr. Admission and Anticipated Discharge Date Admission Date: June 02, 2024 Subjective Patient was seen and examined at bedside. Patient was ambulating in room, on RA, NAD. Patient's at bedside who was also updated on plan of care. Patient denies nausea, vomiting. Patient reports eating okay and moving bowels okay. Patient reports improving pain and burning with passing urine. Patient reports feeling better. Physical Exam Physical Exam: GENERAL: Alert and oriented x3. NAD, on RA HEENT: No pallor, no icterus. Pupils equal, round and reactive to light. Oral mucosa moist. NECK: No JVD, no neck masses. HEART: S1 and S2 heard. Regular rate and rhythm. No murmur, no gallop. RESPIRATORY SYSTEM: Normal AP diameter. No accessory muscle use. No wheezing, b/l crackles. ABDOMEN: Soft, bowel sounds present, nontender, no distention. CENTRAL NERVOUS SYSTEM: No facial droop. Speech is clear. Obeys simple commands. Moves extremities. EXTREMITIES: No edema, no erythema seen. Results & Data Results & Data Vital Signs (Past 12 Hours) Vital Signs Temp Pulse Pulse Resp BP Pulse Ox O2 Del Method 06/04/24 13:50 90 17 98 Room Air 06/04/24 12:37 36.4 C L 71 19 125/70 96 Room Air 06/04/24 09:00 Room Air 06/04/24 08:26 36.6 C 74 19 119/70 91 Room Air 06/04/24 07:44 74 06/04/24 07:28 80 15 96 Room Air 06/04/24 03:23 73 06/04/24 03:23 Room Air FiO2 06/04/24 13:50 21 06/04/24 12:37 06/04/24 09:00 06/04/24 08:26 06/04/24 07:44 06/04/24 07:28 21 06/04/24 03:23 06/04/24 03:23
[2024-06-05] MEDS ORDERED: Nursing to Pharmacy Communication SCH (00:45)
[2024-06-05 04:48] LABS: Hematocrit (blood only) 29.9 % (37.0-47.0); Hemoglobin 9.6 g/dl (12.0-16.0); Mean Corpuscular Hemoglobin 29.2 pg (25.0-34.0); Mean Corpuscular Hgb Conc 32.1 g/dL (32.0-36.0); Mean Corpuscular Volume 90.9 fL (80.0-100.0); Mean Platelet Volume 10.4 fL (9.4-12.4); Platelet Count 151 K/uL (130-400); RDW Coefficient of Variation 17.2 % (11.5-14.5); RDW Standard Deviation 49.5 fL (36.4-46.3); Red Blood Count 3.29 M/uL (4.20-5.40); White Blood Count 6.24 K/ul (4.8-10.8)
[2024-06-05 05:02] LABS: BUN Creatinine Ratio 35.1 (10-20); Calcium 9.6 mg/dl (8.6-10.3); Creatinine Clr Calc Pharmacy 90.7 ml/min; Magnesium 1.9 mg/dl (1.7-2.4); Phosphorus 2.5 mg/dl (2.5-4.9); Potassium 3.6 mmol/L (3.5-5.1)
[2024-06-05] MEDS: predniSONE 20 MG TAB PO SCH (08:33)
[2024-06-05] MEDS: POTASSIUM CHLORIDE CRTAB 20 MEQ TABCR PO STA (09:41)
--- NOTE | 2024-06-05 15:43 | Hospitalist Progress Note ---
Date of Service June 05, 2024 Assessment & Plan (1) Severe sepsis with acute organ dysfunction: (2) Multifocal pneumonia: (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 Patient reported having cough since about a month [employer]ISHED [employer] EXAM[employer], productive of greenish-yellow sputum, she continued to have progressive worsening of cough and started becoming weaker and was febrile on the day of arrival. She was treated with Levaquin and metronidazole early May for cough. She was noted to be in afib rvr at presentation. She is being managed for the following: Pneumonia Sepsis secondary to pneumonia Patient presenting with cough for about a month, worsening with green-yellow sputum, fever/nausea/vomiting/profound weakness just prior to arrival. At admission, respiratory rate and heart rate elevated. Lactate and procalcitonin WNL. Patient apparently hypoxic at presentation needing up to 2 to 3 L oxygen. Patient was started on solu Medrol, cefepime and doxycycline 06/02, continue atb. c/w probiotic. Weaned down steroid to PO 06/04. Follow admitting blood culture. f/u sputum culture. Patient currently on room air. Patient reports clinically feeling better, reports weakness/nausea/vomiting/appetite improving, reports cough improving. Complicated UTI: Patient reports pain and burning with passing urine and increased frequency prior to arrival. Patient on antibiotic as above. Follow urine culture - contaminant. Bacteremia: 06/02 blood culture positive for gram-positive cocci in chains, repeat blood culture sent 06/03 at 24-hour juan a. Patient on antibiotic as above. Follow culture and sensitivity. ID consult. A-fib RVR: Noted in the ED at presentation likely secondary to acute illness as above. Status post Cardizem bolus and drip in the ED. Patient started on therapeutic Lovenox, continue for now. Cardiology consult, she follows [facility] [place]. Home metoprolol dose increased, continue. Monitor replete electrolytes. Communicated w/ cards today, will await recs. Demand Ischemia: Troponin elevated at 53, flat trended. Patient with no chest pain. Continue telemetry monitoring. DVT Px: pt on therapeutic lovenox due to afib rvr. Dispo: pending cx results and cards eval. Admission and Anticipated Discharge Date Admission Date: June 02, 2024 Subjective Patient was seen and examined at bedside. Patient was sitting up in bed, on RA, NAD. Patient denies nausea, vomiting. Patient reports eating okay and moving bowels okay. Patient reports improving pain and burning with passing urine. Patient reports feeling better. Reports improving cough. Physical Exam Physical Exam: GENERAL: Alert and oriented x3. NAD, on RA HEENT: No pallor, no icterus. Pupils equal, round and reactive to light. Oral mucosa moist. NECK: No JVD, no neck masses. HEART: S1 and S2 heard. Regular rate and rhythm. No murmur, no gallop. RESPIRATORY SYSTEM: Normal AP diameter. No accessory muscle use. No wheezing, b/l crackles. ABDOMEN: Soft, bowel sounds present, nontender, no distention. CENTRAL NERVOUS SYSTEM: No facial droop. Speech is clear. Obeys simple commands. Moves extremities. EXTREMITIES: No edema, no erythema seen. Results & Data Results & Data Vital Signs (Past 12 Hours) Vital Signs Temp Pulse Pulse Resp BP BP Pulse Ox 06/05/24 15:30 75 06/05/24 14:55 76 124/78 06/05/24 13:25 90 18 95 06/05/24 11:32 36.5 C 79 21 146/76 H 96 06/05/24 08:00 69 06/05/24 08:00 06/05/24 07:52 87 16 94 06/05/24 07:32 36.7 C 78 19 149/81 H 95 O2 Del Method 06/05/24 15:30 06/05/24 14:55 06/05/24 13:25 Room Air 06/05/24 11:32 Room Air 06/05/24 08:00 06/05/24 08:00 Room Air 06/05/24 07:52 Room Air 06/05/24 07:32 Room Air
[2024-06-06 05:08] LABS: Hematocrit (blood only) 28.8 % (37.0-47.0); Mean Corpuscular Hemoglobin 32.7 pg (25.0-34.0); Mean Corpuscular Hgb Conc 34.7 g/dL (32.0-36.0); Mean Corpuscular Volume 94.1 fL (80.0-100.0); Mean Platelet Volume 10.6 fL (9.4-12.4); Platelet Count 148 K/uL (130-400); RDW Coefficient of Variation 18.8 % (11.5-14.5); RDW Standard Deviation 50.5 fL (36.4-46.3); Red Blood Count 3.06 M/uL (4.20-5.40); White Blood Count 5.34 K/ul (4.8-10.8)
[2024-06-06 05:27] LABS: BUN Creatinine Ratio 27.4 (10-20); Calcium 9.8 mg/dl (8.6-10.3); Creatinine Clr Calc Pharmacy 84.6 ml/min; Magnesium 1.8 mg/dl (1.7-2.4); Potassium 3.6 mmol/L (3.5-5.1)
--- NOTE | 2024-06-06 09:30 | Cardiology Consultation ---
Date of Consultation June 06, 2024 Assessment & Plan (1) Severe sepsis with acute organ dysfunction: (2) Multifocal pneumonia: (3) Atrial fibrillation with rapid ventricular response: Plan Pmhx: 1. Scleroderma. 2. Significant Raynaud's phenomenon. 3. Echocardiogram 2022 at [facility] with normal biventricular size and function and normal pulmonary artery pressures. 4. History of palpitations. 5. Abnormal diffusion capacity by PFTs. (70% of predicted) 2022 6. GERD. 7. COVID-19 infection with almost 2-week hospitalization at [facility] 06/2020; recurrent Covid 06/2023 8. History of dysphagia, status post dilation in 2012. 9. Fatty infiltration of her liver. 10. Right bundle branch block 11. Lower extremity edema secondary to diltiazem 12. Splenic artery aneurysms Ms. Castillo looks well today and notes that she is feeling much better. She has not had any afib since admission. She can be changed to Eliquis for discharge. We discussed risk of bleeding and that she will need to let us know if she is having any big bruises, epistaxis, melena or other nick bleeding. She will need to be evaluated urgently if she has a serious injury or if she hits her head. She should avoid NSAIDs and aspirin for pain but can use Tylenol. She should continue her home metoprolol. We'll have her wear a one month event monitor after discharge which we can organize through our clinic. She has chronic hypokalemia. I would recommend keeping her potassium level above 4.0 given her afib and frequent ectopy. Her potassium and magnesium has normalized. She is a bit fluid overloaded likely secondary to sepsis fluid resuscitation. I will hold off on any diuretic for now but if she is feeling more sob a dose or two of lasix can be given. She has splenic artery aneurysms on CT. She says that she was aware of them prior. These will need to be monitored with repeat imaging down the road. Addendum: Patient's EKG this afternoon looks like 2:1 atrial flutter. Per nursing, her heart rate is now 80s with administration of oxygen. Dilt drip can be used as needed if heart rate is sustained above 120 bpm again History of Present Illness Attending Physician: Jon Chin MD History of Present Illness Ms. Castillo initially presented to the hospital with sepsis secondary to pneumonia. She was in afib on her EKG with RVR. She converted to sinus tachycardia with PACs and PVCs within a few hours and has remained in SR since. Today she is feeling much better. She continues to cough but reports that her sputum has started to clear. She is not sob or having chest pain. Allergies Allergy/AdvReac Type Severity Reaction Status Date / Time latex Allergy Mild SKIN Verified 06/02/24 16:31 IRRITATION levofloxacin [From Levaquin] AdvReac Severe Diarrhea Unverified 06/02/24 16:31 metronidazole AdvReac Severe Diarrhea Unverified 06/02/24 16:31 adhesive tape AdvReac Mild SKIN Verified 06/02/24 16:31 REDNESS Home Medications Medication Instructions Recorded Confirmed Type albuterol sulfate 90 mcg/actuation 1 inh inhalation QID PRN SHORT OF 10/31/20 06/02/24 History aerosol inhaler BREATH budesonide-formoterol HFA 160 2 puff inhalation BID PRN SHORT OF 10/31/20 06/02/24 History mcg-4.5 mcg/actuation aerosol BREATH inhaler (Symbicort) cholecalciferol (vitamin D3) 125 125 mcg PO QAM 10/31/20 06/02/24 History mcg (5,000 unit) tablet (Vitamin D3) esomeprazole magnesium 20 mg 20 mg PO BID 10/31/20 06/02/24 History capsule,delayed release (Nexium) hydroxychloroquine 200 mg tablet 200 mg PO BID 10/31/20 06/02/24 History mycophenolate mofetil 500 mg 500 mg PO UD 10/31/20 06/02/24 History tablet (CellCept) melatonin 3 mg tablet 3 mg PO HS PRN Sleep 07/03/23 06/02/24 History acetaminophen 500 mg tablet 500 mg PO Q6H PRN Pain 06/02/24 06/02/24 History famotidine 20 mg tablet (Pepcid) 20 mg PO HS 06/02/24 06/02/24 History hydrochlorothiazide 25 mg tablet 25 mg PO DAILY 06/02/24 06/02/24 History metoprolol succinate 50 mg 50 mg PO HS 06/02/24 06/02/24 History tablet,extended release 24 hr nystatin 100,000 unit/mL oral 500,000 unit PO UD 06/02/24 06/02/24 History suspension potassium chloride 20 mEq 20 meq PO DAILY 06/02/24 06/02/24 History tablet,extended release(part/cryst) apixaban 5 mg tablet (Eliquis) 5 mg PO BID #60 tabs 06/06/24 Rx Patient History Medical History Hx of endometriosis Degenerative disc disease Osteoarthritis History of kidney stones Esophageal dilatation HX OF Dysphagia GERD (gastroesophageal reflux disease) History of anemia Irregular heart rate follows w/ Dr Owen History of COVID-19 06/22/23- home test-resolved Hx of recurrent pneumonia reason for inhaler- Hypertension Lupus (systemic lupus erythematosus) Scleroderma affects lungs, reason for cellcept Surgical History History of anesthesia reaction EPIDURAL WITH LABOR (WENT INTO RESPIRATORY ARREST D/T "GOING BOTH WAYS") History of esophagogastroduodenoscopy (EGD) History of colonoscopy H/O total hysterectomy History of section X 1 Hx of basal cell carcinoma excision LEG History of nasal septoplasty History of tooth extraction History of cataract surgery RT/LEFT Family History Grandmother (Maternal) Family hx of colon cancer Other No family history of adverse response to anesthesia Social History Smoking Status: Never smoker Second Hand Exposure: Yes ( A CHILD); Do You Dip or Chew Tobacco: No; Hx Alcohol Use: Yes Alcohol type: wine and hard liquor Hx Substance Use: No Preferred Language: [place] Communication Ability: Effective Mems Process Engineer Required: No Beliefs That Will Affect Care: None Current Living Situation: Spouse Feels Safe at Home: Yes Assistive Devices: None Review of Systems Review of Systems: All systems reviewed & are unremarkable except as noted in HPI & below Physical Exam Constitutional: WD/WN, vitals as above Respiratory: Auscultation: + crackles Cardiovascular: Rate/Rhythm: regular rate and regular rhythm Heart Sounds: no murmur Extremities: + edema (mild bilateral LE) Skin: no rashes, warm and dry Neurologic: moves all extremities and awake Results & Data Vital Signs (Past 12 Hours) Vital Signs Temp Pulse Pulse Resp BP BP Pulse Ox 06/06/24 08:00 36.6 C 83 20 142/72 H 92 06/06/24 07:22 06/06/24 07:20 66 18 92 06/06/24 04:02 36.4 C L 65 17 150/75 H 93 06/06/24 01:54 65 18 90 06/06/24 01:00 70 06/06/24 01:00 06/06/24 00:16 36.6 C 61 17 143/80 H 93 O2 Del Method 06/06/24 08:00 Room Air 06/06/24 07:22 Room Air 06/06/24 07:20 Room Air 06/06/24 04:02 Room Air 06/06/24 01:54 Room Air 06/06/24 01:00 06/06/24 01:00 Room Air 06/06/24 00:16 Room Air
[2024-06-06] MEDS: METOPROLOL TARTRATE 1 MG/ML VIAL IV PRN (12:03)
--- NOTE | 2024-06-06 12:57 | Infectious Disease Consult ---
Date of Service June 06, 2024 Telehealth Information I performed this visit using a real-time telehealth connection between my location and the patients location ([facility]). After connecting through interactive tele-video, patient was identified by name and date of and/or wristband check.Patient (or authorized healthcare bilingual sales representative) was informed that this was a telemedicine visit and it was being conducted confidentially over secure lines. My office door was closed and no one else was present in the room with me.Patient (or authorized healthcare bilingual sales representative) provided consent to proceed with the visit, expressed an understanding of privacy and security of the telemedicine visit, and gave permission to have a hospital bilingual sales representative in the room in order to assist with the visit and to conduct portions of the visit, as needed. I informed the patient (or authorized healthcare bilingual sales representative) that I reviewed their record and presented the opportunity for them to ask any questions regarding the visit today. The patient agreed to participate. Assessment & Plan (1) Hypoxic respiratory failure: (2) Immunosuppression due to drug therapy: (3) Chronic fibrosis of lung: (4) Multifocal pneumonia: (5) Community acquired pneumonia: (6) Sepsis: (7) Weakness: Plan Assessment: Patient is a 74-year-old female who PMHx of Scleroderma on Cellcept and systemic lupus erythematosus who presented to [facility] on 06/02/2024 with cough, SOB, fever, and feeling generalized weakness. Pt's symptoms did not improve and pt came to the emergency room for evaluation. In the ED, pt was noted to be hypotensive tachycardic. EKG possibly atrial fibrillation. Pt was admitted to Cardiac unit for further evaluation. Infectious work-up showed Strep PNA in blood in 1/[address] chest showed multifocal PNA. Pt's UA concern for UTI with Urine culture (+) multiple orgs concern for colonization. Plan: 1. Strep Pneumoniae bacteremia with Strep PNA - Recommend switching Cefepime IV to Levaquin 750 mg PO daily. Discussed patient concern about diarrhea in detail. Pt is will to try this, please give first dose in hospital and monitor prior to discharge. - If patient can not tolerate Levaquin PO, recommend Ceftriaxone 2g q24 IV as alternative. Given patient's bacteremia and immunocompromised state, pt needs IV drug or oral drug with great bioavailability. - Recommend 14 days of total antibiotics treatment (including hospital stay) - Recommend holding cellcept until antibiotic course is complete - we will sign off, no need for ID clinic appointment, please call with issues, concerns, or questions. We will not actively monitor patient so please reach out for additional questions. History of Present Illness History of Present Illness Reason for Consult: bacteremia, pna, uti Patient is a 74-year-old female who PMHx of Scleroderma on Cellcept and systemic lupus erythematosus who presented to [facility] on 06/02/2024 with cough, SOB, fever, and feeling generalized weakness. Per notes and chart review, pt saw her PCP earlier May for a cough and was treated with Levaquin, metronidazole. Pt continued to have a cough and some shortness of breath. Pt was given a course of prednisone and Decadron. Pt was also treated with Robitussin with codeine and Tessalon Perles for her cough. Pt also reports that she has been having diarrhea loose and watery essentially the whole month. Pt's symptoms did not improve and pt came to the emergency room for evaluation. In the ED, pt was noted to be hypotensive tachycardic. EKG possibly atrial fibrillation. Pt was admitted to Cardiac unit for further evaluation. Infectious work-up showed Strep PNA in blood in 1/[address] chest showed multifocal PNA. Pt's UA concern for UTI with Urine culture (+) multiple orgs concern for colonization. ID consulted for evaluation and management. Allergies Allergy/AdvReac Type Severity Reaction Status Date / Time latex Allergy Mild SKIN Verified 06/02/24 16:31 IRRITATION levofloxacin [From Levaquin] AdvReac Severe Diarrhea Unverified 06/02/24 16:31 metronidazole AdvReac Severe Diarrhea Unverified 06/02/24 16:31 adhesive tape AdvReac Mild SKIN Verified 06/02/24 16:31 REDNESS Home Medications Medication Instructions Recorded Confirmed Type albuterol sulfate 90 mcg/actuation 1 inh inhalation QID PRN SHORT OF 10/31/20 06/02/24 History aerosol inhaler BREATH budesonide-formoterol HFA 160 2 puff inhalation BID PRN SHORT OF 10/31/20 06/02/24 History mcg-4.5 mcg/actuation aerosol BREATH inhaler (Symbicort) cholecalciferol (vitamin D3) 125 125 mcg PO QAM 10/31/20 06/02/24 History mcg (5,000 unit) tablet (Vitamin D3) esomeprazole magnesium 20 mg 20 mg PO BID 10/31/20 06/02/24 History capsule,delayed release (Nexium) hydroxychloroquine 200 mg tablet 200 mg PO BID 10/31/20 06/02/24 History mycophenolate mofetil 500 mg 500 mg PO UD 10/31/20 06/02/24 History tablet (CellCept) melatonin 3 mg tablet 3 mg PO HS PRN Sleep 07/03/23 06/02/24 History acetaminophen 500 mg tablet 500 mg PO Q6H PRN Pain 06/02/24 06/02/24 History famotidine 20 mg tablet (Pepcid) 20 mg PO HS 06/02/24 06/02/24 History hydrochlorothiazide 25 mg tablet 25 mg PO DAILY 06/02/24 06/02/24 History metoprolol succinate 50 mg 50 mg PO HS 06/02/24 06/02/24 History tablet,extended release 24 hr nystatin 100,000 unit/mL oral 500,000 unit PO UD 06/02/24 06/02/24 History suspension potassium chloride 20 mEq 20 meq PO DAILY 06/02/24 06/02/24 History tablet,extended release(part/cryst) apixaban 5 mg tablet (Eliquis) 5 mg PO BID #60 tabs 06/06/24 Rx Patient History Medical History Hx of endometriosis Degenerative disc disease Osteoarthritis History of kidney stones Esophageal dilatation HX OF Dysphagia GERD (gastroesophageal reflux disease) History of anemia Irregular heart rate follows w/ Dr Owen History of COVID-19 06/22/23- home test-resolved Hx of recurrent pneumonia reason for inhaler- Hypertension Lupus (systemic lupus erythematosus) Scleroderma affects lungs, reason for cellcept Surgical History History of anesthesia reaction EPIDURAL WITH LABOR (WENT INTO RESPIRATORY ARREST D/T "GOING BOTH WAYS") History of esophagogastroduodenoscopy (EGD) History of colonoscopy H/O total hysterectomy History of section X 1 Hx of basal cell carcinoma excision LEG History of nasal septoplasty History of tooth extraction History of cataract surgery RT/LEFT Family History Grandmother (Maternal) Family hx of colon cancer Other No family history of adverse response to anesthesia Social History Smoking Status: Never smoker Second Hand Exposure: Yes ( A CHILD); Do You Dip or Chew Tobacco: No; Hx Alcohol Use: Yes Alcohol type: wine and hard liquor Hx Substance Use: No Preferred Language: Sinhala Communication Ability: Effective Digital Media Strategist Required: No Beliefs That Will Affect Care: None Current Living Situation: Spouse Feels Safe at Home: Yes Assistive Devices: None Review of Systems ROS reviewed all negative except persistent cough Results & Data Vital Signs (Past 12 Hours) Vital Signs Temp Pulse Pulse Resp BP BP BP 06/06/24 12:29 124 H 142/72 H 06/06/24 12:03 83 142/72 H 06/06/24 11:12 37.0 C 128 H 20 121/81 06/06/24 08:00 59 L 06/06/24 08:00 36.6 C 83 20 142/72 H 06/06/24 07:22 06/06/24 07:20 66 18 06/06/24 04:02 36.4 C L 65 17 150/75 H 06/06/24 01:54 65 18 06/06/24 01:00 70 06/06/24 01:00 Pulse Ox O2 Del Method 06/06/24 12:29 06/06/24 12:03 06/06/24 11:12 93 Room Air 06/06/24 08:00 06/06/24 08:00 92 Room Air 06/06/24 07:22 Room Air 06/06/24 07:20 92 Room Air 06/06/24 04:02 93 Room Air 06/06/24 01:54 90 Room Air 06/06/24 01:00 06/06/24 01:00 Room Air Laboratory Results Abnormal Lab Results 06/06/24 04:27 WBC 5.34 RBC 3.06 L Hgb 10.0 L Hct 28.8 L MCV 94.1 MCH 32.7 MCHC 34.7 RDW Std Deviation 50.5 H RDW Coeff of Naz 18.8 H Plt Count 148 MPV 10.6 Sodium 141 Potassium 3.6 Chloride 110 H Carbon Dioxide 26 Anion Gap 5 BUN 17 Creatinine 0.62 Est Cr Clr Drug Dosing 84.6 eGFR 94.56 BUN/Creatinine Ratio 27.4 H Glucose 78 Calcium 9.8 Magnesium 1.8 Diagnostic Findings Blood culture on 06/02/2024 Blood Culture Anaerobic Preliminary 06/05/24-733 Organism 1 Streptococcus pneumoniae Sens Sensitivities to Follow Blood Culture PCR Panel If viewing in EMR, results available under LAB Serology tab. Phoned positive Blood Culture Gram Stain report to Sailaja Little on 06/03/24 at 0751 [place] [id number]. [place] [id number]. S pneumo RX M.I.C. --- --------- Amox/Clav S <=0.5/.25 Cefepime S <=0.25 Cefotaxime S <=0.25 Cefotaxime S Ceftriaxone S <=0.25 Ceftriaxone S Cefuroxime S <=0.25 Chloramphenicol S 2 Clindamycin S <=0.06 Erythromycin R >0.5 Levofloxacin S 0.5 Meropenem S <=0.06 Penicillin S <=0.03 Penicillin S Penicillin Oral S Tetracycline S <=0.5 Trimeth/Sulfa I Vancomycin S 0.25 Streptococcus pneumoniae: Strep Plus Non Meningitis Interpretations S = SENSITIVE I = INTERMEDIATE R = RESISTANT Blood culture on 06/03/2024 NGTD Medications Administered Home Medications Medication Instructions Recorded Confirmed Last Taken albuterol sulfate 90 mcg/actuation 1 inh inhalation QID PRN SHORT OF 10/31/20 06/02/24 Unknown aerosol inhaler BREATH budesonide-formoterol HFA 160 2 puff inhalation BID PRN SHORT OF 10/31/20 06/02/24 Unknown mcg-4.5 mcg/actuation aerosol BREATH inhaler (Symbicort) cholecalciferol (vitamin D3) 125 125 mcg PO QAM 10/31/20 06/02/24 08/18/23 mcg (5,000 unit) tablet (Vitamin D3) esomeprazole magnesium 20 mg 20 mg PO BID 10/31/20 06/02/24 08/18/23 capsule,delayed release (Nexium) hydroxychloroquine 200 mg tablet 200 mg PO BID 10/31/20 06/02/24 08/18/23 mycophenolate mofetil 500 mg 500 mg PO UD 10/31/20 06/02/24 08/19/23 tablet (CellCept) melatonin 3 mg tablet 3 mg PO HS PRN Sleep 07/03/23 06/02/24 Unknown acetaminophen 500 mg tablet 500 mg PO Q6H PRN Pain 06/02/24 06/02/24 Unknown famotidine 20 mg tablet (Pepcid) 20 mg PO HS 06/02/24 06/02/24 Unknown hydrochlorothiazide 25 mg tablet 25 mg PO DAILY 06/02/24 06/02/24 Unknown metoprolol succinate 50 mg 50 mg PO HS 06/02/24 06/02/24 Unknown tablet,extended release 24 hr nystatin 100,000 unit/mL oral 500,000 unit PO UD 06/02/24 06/02/24 Unknown suspension potassium chloride 20 mEq 20 meq PO DAILY 06/02/24 06/02/24 Unknown tablet,extended release(part/cryst) apixaban 5 mg tablet (Eliquis) 5 mg PO BID #60 tabs 06/06/24 Unknown Active Medications Generic Name Dose Route Start Last Admin Trade Name Radha PRN Reason Stop Dose Admin Benzonatate 200 mg 06/02/24 21:00 06/06/24 13:52 Benzonatate 100 Mg Capsule PO 07/02/24 20:59 Not Given TID CINDY Doxycycline Hyclate 100 mg 06/02/24 21:00 06/06/24 09:42 Doxycycline Hyclate 100 Mg Cap PO 06/07/24 20:59 100 mg BID CINDY Administration Enoxaparin Sodium 80 mg 06/02/24 19:15 06/06/24 06:34 Enoxaparin 80 Mg/0.8 Ml Syr SQ 07/02/24 19:14 80 mg Q12H CINDY Administration Famotidine 20 mg 06/02/24 21:00 06/05/24 19:58 Famotidine 20 Mg Tab PO 07/02/24 20:59 20 mg HS CINDY Administration Fluticasone/Vilanterol 1 puffs 06/02/24 19:15 06/06/24 09:40 Fluticasone/Vilanterol 100/25mcg 14 Puffs/Inhaler INH 07/02/24 19:14 1 puffs DAILY CINDY Administration Protocol Guaifenesin 600 mg 06/02/24 21:00 06/06/24 09:41 Guaifenesin 600 Mg Tabcr PO 07/02/24 20:59 600 mg Q12 CINDY Administration Hydroxychloroquine Sulfate 200 mg 06/02/24 21:00 06/06/24 09:42 Hydroxychloroquine Sulfate 200 Mg Tab PO 07/02/24 20:59 200 mg BID CINDY Administration Diltiazem HCl 125 mg/ Dextrose 125 mls @ 0 mls/hr 06/02/24 16:45 06/03/24 03:36 IV 07/02/24 16:44 0 mg/hr .Q0M CINDY 0 mls/hr Titration Protocol 0 MG/HR Cefepime HCl 2,000 mg in 20 mls @ 5 mls/min 06/02/24 23:00 06/06/24 06:34 Maxipime 2000mg IV 06/07/24 22:59 5 mls/min Q8H CINDY Administration Protocol Ipratropium [place] 0.5 mg 06/02/24 19:00 06/06/24 13:45 Ipratropium [place] Neb Soln 0.02% 0.5mg/2.5ml Vial NEB 07/02/24 18:59 Not Given Q6R CINDY Lactobacillus Acidophilus 1,250 mg 06/04/24 09:00 06/06/24 09:42 Advanced Probiotic 625 Mg Capsule PO 07/04/24 08:59 1,250 mg DAILY CINDY Administration Magnesium Oxide 400 mg 06/02/24 21:00 06/06/24 09:43 Magnesium Oxide 400 Mg Tab PO 07/02/24 20:59 400 mg BID CINDY Administration Metoprolol Tartrate 25 mg 06/02/24 18:34 06/06/24 13:52 Metoprolol Tartrate 25 Mg Tab PO 07/02/24 18:33 25 mg Q6H CINDY Administration Metoprolol Tartrate 5 mg 06/02/24 18:34 06/06/24 12:03 Metoprolol Tartrate 1 Mg/Ml Vial IV 07/02/24 18:33 5 mg Q4H PRN Administration Tachycardia Pantoprazole Sodium 40 mg 06/02/24 21:00 06/06/24 09:42 Pantoprazole 40 Mg Tab PO 07/02/24 20:59 40 mg BID CINDY Administration Protocol Prednisone 40 mg 06/05/24 09:00 06/06/24 09:41 Prednisone 20 Mg Tab PO 06/10/24 08:59 40 mg QD CINDY Administration Taper
--- NOTE | 2024-06-06 15:42 | XCELERA ---
[id number]
--- NOTE | 2024-06-06 16:02 | Hospitalist Progress Note ---
Date of Service June 06, 2024 Assessment & Plan (1) Severe sepsis with acute organ dysfunction: (2) Multifocal pneumonia: (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 She was treated with Levaquin and metronidazole early May for cough. She was noted to be in afib rvr at presentation. She is being managed for the following: Pneumonia Sepsis secondary to pneumonia Patient presenting with cough for about a month, worsening with green-yellow sputum, fever/nausea/vomiting/profound weakness just prior to arrival. At admission, respiratory rate and heart rate elevated. Lactate and procalcitonin WNL. Patient apparently hypoxic at presentation needing up to 2 to 3 L oxygen. Patient was started on solu Medrol, cefepime and doxycycline 06/02 ---> ID evaluated 06/06, recommends Levaquin, Levaquin started 06/06. c/w probiotic. Weaned down steroid to PO 06/04. Follow admitting blood culture. f/u sputum culture. Sputum culture with pinpoint growth. Patient currently on room air. Patient reports clinically feeling better, reports weakness/nausea/vomiting/appetite improving, reports cough improving. Complicated UTI: Patient reports pain and burning with passing urine and increased frequency prior to arrival. Patient on antibiotic as above. Follow urine culture - contaminant. Bacteremia: 06/02 blood culture positive for gram-positive cocci in chains, repeat blood culture sent 06/03 - No growth for 48 hours. Patient on antibiotic as above. Follow culture and sensitivity. Echo without evidence of vegetations. ID consult - recommends discontinue cefepime and start Levaquin 06/06. A-fib RVR: Noted in the ED at presentation likely secondary to acute illness as above. Status post Cardizem bolus and drip in the ED. Patient started on therapeutic Lovenox --> Eliquis 30 dollars a month per CM, pt agreeable, will initiate eliquis from PM fo 06/06 . Cardiology consult, she follows [facility] cardiology. Home metoprolol dose increased, continue. Monitor replete electrolytes. Cards on board, following recs. Pt w/ tachy in to 120 today, echo w/ no acute findings. Will get CXR, if w/ volume overload, will give small dose lasix. Demand Ischemia: Troponin elevated at 53, flat trended. Patient with no chest pain. Continue telemetry monitoring. DVT Px: pt on therapeutic lovenox due to afib rvr. to eliquis from pm of 06/06 Dispo: once HR stabilizes. Admission and Anticipated Discharge Date Admission Date: June 02, 2024 Subjective Patient was seen and examined at bedside. Patient was lying in bed, on RA, NAD. Patient denies nausea, vomiting. Patient reports eating okay and moving bowels okay. Patient reports feeling better. Reports improving cough. Patient with tachycardia today, has episodes of increased heart rate associated with some shortness of breath. Cardiology on board, aware, will follow recommendation.Would like to trail xopenex nebs. Physical Exam Physical Exam: GENERAL: Alert and oriented x3. NAD, on RA HEENT: No pallor, no icterus. Pupils equal, round and reactive to light. Oral mucosa moist. NECK: No JVD, no neck masses. HEART: S1 and S2 heard. Regular rate and rhythm. No murmur, no gallop. RESPIRATORY SYSTEM: Normal AP diameter. No accessory muscle use. No wheezing, b/l crackles. ABDOMEN: Soft, bowel sounds present, nontender, no distention. CENTRAL NERVOUS SYSTEM: No facial droop. Speech is clear. Obeys simple commands. Moves extremities. EXTREMITIES: No edema, no erythema seen. Results & Data Results & Data Vital Signs (Past 12 Hours) Vital Signs Temp Pulse Pulse Resp BP BP BP 06/06/24 15:01 127 H 06/06/24 12:29 124 H 142/72 H 06/06/24 12:03 83 142/72 H 06/06/24 11:12 37.0 C 128 H 20 121/81 06/06/24 08:00 59 L 06/06/24 08:00 36.6 C 83 20 142/72 H 06/06/24 07:22 12/02/24 07:20 66 18 06/06/24 04:02 36.4 C L 65 17 150/75 H Pulse Ox O2 Del Method 06/06/24 15:01 06/06/24 12:29 06/06/24 12:03 06/06/24 11:12 93 Room Air 06/06/24 08:00 06/06/24 08:00 92 Room Air 06/06/24 07:22 Room Air 06/06/24 07:20 92 Room Air 06/06/24 04:02 93 Room Air
--- NOTE | 2024-06-06 16:15 | XRay Report ---
INDICATION: Cough. Follow-up pneumonia. TECHNIQUE: Frontal radiograph of the chest. COMPARISON: Radiograph from 06/02/2024 FINDINGS: Elevation of the left hemidiaphragm. Mild cardiomegaly. Left upper and lower lobe infiltrates, unchanged allowing for differences in technique. No pleural effusion or pneumothorax. No acute fracture. IMPRESSION: No significant interval change allowing for differences in technique. Electronically signed by Mark Ziegler 06-06-2024 4:13 PM
[2024-06-06] MEDS: levoFLOXacin 750 MG TAB PO SCH (16:37)
[2024-06-06] MEDS: MAGNESIUM SULFATE / D5W 1 GM/100 ML BAG IV ONE (16:38)
[2024-06-06] MEDS: APIXABAN 5 MG TABLET PO SCH (20:16)
[2024-06-07] MEDS: POTASSIUM CHLORIDE CRTAB 20 MEQ TABCR PO STA (01:53)
[2024-06-07 06:15] LABS: Hematocrit (blood only) 29.7 % (37.0-47.0); Hemoglobin 10.3 g/dl (12.0-16.0); Mean Corpuscular Hgb Conc 34.7 g/dL (32.0-36.0); Mean Corpuscular Volume 95.2 fL (80.0-100.0); Mean Platelet Volume 10.6 fL (9.4-12.4); Nucleated RBC # (auto) 0.02 K/uL (0.00-0.12); Nucleated RBC % (auto) 0.3 %; Platelet Count 138 K/uL (130-400); RDW Coefficient of Variation 18.9 % (11.5-14.5); RDW Standard Deviation 48.7 fL (36.4-46.3); Red Blood Count 3.12 M/uL (4.20-5.40); White Blood Count 5.85 K/ul (4.8-10.8)
[2024-06-07 06:33] LABS: BUN Creatinine Ratio 27.9 (10-20); Calcium 9.5 mg/dl (8.6-10.3); Creatinine Clr Calc Pharmacy 85.9 ml/min
[2024-06-07 06:48] LABS: Thyroid Stimulating Hormone 1.194 uIu/ml (0.300-4.500)
--- NOTE | 2024-06-07 08:56 | Cardiology Progress Note ---
Date of Service June 07, 2024 Assessment & Plan (1) Severe sepsis with acute organ dysfunction: (2) Multifocal pneumonia: (3) Atrial fibrillation with rapid ventricular response: Plan Pmhx: 1. Scleroderma. 2. Significant Raynaud's phenomenon. 3. Echocardiogram 2022 at [facility] with normal biventricular size and function and normal pulmonary artery pressures. 4. History of palpitations. 5. Abnormal diffusion capacity by PFTs. (70% of predicted) 2022 6. GERD. 7. COVID-19 infection with almost 2-week hospitalization at [facility] 06/2020; recurrent Covid 06/2023 8. History of dysphagia, status post dilation in 2012. 9. Fatty infiltration of her liver. 10. Right bundle branch block 11. Lower extremity edema secondary to diltiazem 12. Splenic artery aneurysms Ms. Castillo is hoping to go home today, she feels better this morning. She was not wearing oxygen while ambulating in the rodriguez when I got to the floor or during my assessment and appeared comfortable. She did have an episode of 2:1 atrial flutter yesterday. That EKG does not seem to have made it to the chart but was reviewed by myself and Dr. Owen. No further episodes overnight. She has been started on Eliquis. Her CHADS2-VASC is 3. We can arrange for an event monitor for her upon discharge. She should continue her home metoprolol. She is a little fluid overloaded with swollen ankles and weight is up. I will give her 3 days of po furosemide. I'll order labs for her for a couple of days after discharge to watch her potassium. Her echo was unchanged from March. No WMA or reduction in EF. She has chronic hypokalemia. I would recommend keeping her potassium level above 4.0 given her afib and frequent ectopy. Her potassium and magnesium have normalized. She has splenic artery aneurysms on CT. She says that she was aware of them prior. These will need to be monitored with repeat imaging down the road. She can be discharged from a cardiology perspective when ok with the hospitalists. Admission and Anticipated Discharge Date Admission Date: June 02, 2024 Subjective Ms. Castillo feels better this morning. She denies sob or chest pain. She was walking the halls this morning. She has not had any further atrial flutter on the monitor since yesterday. She notes that she didn't feel well while in flutter but couldn't really feel any racing or palpitations. Review of Systems Review of Systems: All systems reviewed & are unremarkable except as noted in HPI & below Physical Exam Constitutional: WD/WN, vitals as above Respiratory: normal respiratory effort, lungs clear to auscultation cough Cardiovascular: Rate/Rhythm: regular rate (with occasional ectopy) and regular rhythm Heart Sounds: no murmur Extremities: + edema (mild bilateral LE) Skin: no rashes, warm and dry Neurologic: moves all extremities and awake Results & Data Vital Signs (Past 12 Hours) Vital Signs Temp Pulse Resp BP Pulse Ox O2 Del Method O2 Flow Rate 06/07/24 08:09 Nasal Cannula 2 06/07/24 07:21 36.7 C 69 19 153/71 H 93 Room Air 06/07/24 06:56 62 18 96 Nasal Cannula 2 06/07/24 03:13 36.6 C 66 20 145/85 H 96 Nasal Cannula 2 06/07/24 01:26 76 18 96 Nasal Cannula 2 06/06/24 22:42 36.6 C 65 21 126/68 97 Nasal Cannula 2 06/06/24 22:12 Nasal Cannula 2.5
[2024-06-07] MEDS: FUROSEMIDE 20 MG TAB PO SCH (10:26)
[2024-06-07 11:28] VITALS: RESP 20
[2024-06-07] MEDS: LEVALBUTEROL HCL 0.63 MG/3 ML NEB NEB PRN (12:05)
--- NOTE | 2024-06-07 13:40 | Electrocardiogram Report ---
Test Reason : Blood Pressure : */* mmHG Vent. Rate : 125 BPM Atrial Rate : 125 BPM P-R Int : 150 ms QRS Dur : 132 ms QT Int : 320 ms P-R-T Axes : * 34 -29 degrees QTcB Int : 461 ms Sinus tachycardia Right bundle branch block Abnormal ECG When compared with ECG of 03-Jun-2024 09:44, Premature atrial complexes are no longer Present Vent. rate has increased by 51 bpm Confirmed by Sonu Sin ([id number]) on 06/07/2024 1:40:43 PM Referred By: REFERRED SELF Confirmed By: Sonu Sin
[2024-06-07] MEDS: dilTIAZem HCL 30 MG TAB PO SCH (15:05)
[2024-06-07 15:24] VITALS: TEMP 98.2; O2SAT 92
--- NOTE | 2024-06-07 16:57 | Discharge Summary ---
Date of Service June 07, 2024 Admission HPI Per Admitting Provider Patient is a 74-year-old female who has been having a cough for the entire month of May. Saw her PCP earlier May for a cough and was treated with Levaquin, metronidazole. She continued to have a cough and some shortness of breath. She was given a course of prednisone and Decadron. She was also treated with Robitussin with codeine and Tessalon Perles for her cough. She also reports that she has been having diarrhea loose and watery essentially the whole month. It actually has gotten better over the last couple days. She denies any blood in the stool. She has seen her PCP 3 times this month for these complaints. Most recently this past week. They were thinking that maybe she was having severe reflux as a cause of her cough and was working on potentially getting a GI evaluation. Today the patient was so weak it was hard for her to stand and walk. She felt a bit woozy and came to the emergency room for evaluation. In the emergency room she was noted to be hypotensive tachycardic. EKG possibly atrial fibrillation. She was referred to our service for further evaluation. Patient denies any fevers. No purulence to her cough. Has not really had any fevers that she is aware of. Denies any new bladder issues. Did confirm the diarrhea as mentioned above. May not have been eating and drinking quite as well as she usually does. 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 She is on chronic metoprolol. However she did not think she has ever been told that she has atrial fibrillation. Outside EMR shows a Holter monitor from 2013 which showed sinus rhythm with some short bursts of SVT. No atrial fibrillation noted. She is not on any anticoagulation. No one has ever mentioned this to her. She denies any chest pain. She is on Symbicort chronically for her pulmonary fibrosis. Her albuterol inhaler has just made her jittery but has not really helped a lot with her shortness of breath. Admission Exam Per Admitting Provider Constitutional: Alert, ill in appearance, nontoxic HEENT: Mucous membranes dry sclera clear Neck: Soft, no adenopathy Lungs: Decreased breath sounds, poor airflow, tight airflow, coarse rhonchi throughout, expiratory wheezes CV: S1-S2, irregular, tachycardic Abdomen: Soft, nontender, nondistended Extremities: No significant edema Musculoskeletal: No significant joint tenderness Neuro: No focal deficits Psych: Cooperative, normal mood Principal Diagnosis Sepsis secondary to pneumonia Pneumonia Complicated UTI Bacteremia A-fib RVR Demand ischemia Discharge Exam GENERAL: Alert and oriented x3. NAD, on RA HEENT: No pallor, no icterus. Pupils equal, round and reactive to light. Oral mucosa moist. NECK: No JVD, no neck masses. HEART: S1 and S2 heard. Regular rate and rhythm. No murmur, no gallop. RESPIRATORY SYSTEM: Normal AP diameter. No accessory muscle use. No wheezing, b/l crackles. ABDOMEN: Soft, bowel sounds present, nontender, no distention. CENTRAL NERVOUS SYSTEM: No facial droop. Speech is clear. Obeys simple commands. Moves extremities. EXTREMITIES: trace ble edema, no erythema seen. Discharge Data Allergies Allergy/AdvReac Type Severity Reaction Status Date / Time latex Allergy Mild SKIN Verified 06/02/24 16:31 IRRITATION levofloxacin [From Levaquin] AdvReac Severe Diarrhea Unverified 06/02/24 16:31 metronidazole AdvReac Severe Diarrhea Unverified 06/02/24 16:31 adhesive tape AdvReac Mild SKIN Verified 06/02/24 16:31 REDNESS Consultations 06/02/24 16:16 ED Decision to Admit Stat 06/03/24 14:36 Consult Cardiology Routine 06/03/24 14:48 Consult Infectious Diseases Routine Ordered Studies 06/02/24 15:25 CT angio chest PE protocol Stat Hospital Course (1) Severe sepsis with acute organ dysfunction: (2) Multifocal pneumonia: (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 Patient reported having cough since about a month [employer], productive of greenish-yellow sputum, she continued to have progressive worsening of cough and started becoming weaker and was febrile on the day of arrival. She was treated with Levaquin and metronidazole early May for cough. She was noted to be in afib rvr at presentation. She is being managed for the following: Pneumonia Sepsis secondary to pneumonia Patient presenting with cough for about a month, worsening with green-yellow sputum, fever/nausea/vomiting/profound weakness just prior to arrival. At admission, respiratory rate and heart rate elevated. Lactate and proca lcitonin WNL. Patient apparently hypoxic at presentation needing up to 2 to 3 L oxygen. ID evaluated, patient will be on Levaquin to complete 14 days therapy for bacteremia. Probiotics provided. Will discontinue steroids today. Patient to follow-up on final results of repeat blood culture with PCP follow-up in a week time upon discharge. Sputum culture with no growth. Patient underwent two-step test, did not require oxygen. Patient's heart rate and overall mobility/cough improving. Patient would like to go home. Complicated UTI: Patient on antibiotic as above. Bacteremia: 06/02 blood culture positive for gram-positive cocci in chains, repeat blood culture sent 06/03 - No growth for 48 hours. Patient on antibiotic as above. Follow culture and sensitivity. Echo without evidence of vegetations. ID consult - recommends discontinue cefepime and start Levaquin 06/06. Total 14 days therapy. As above. A-fib RVR: Noted in the ED at presentation likely secondary to acute illness as above. Status post Cardizem bolus and drip in the ED. Patient started on therapeutic Lovenox --> Eliquis 30 dollars a month per CM, pt agreeable, Continue with eliquis from PM fo 06/06 . Cardiology consult, [place] [facility]. discussed with cardiology 06/07, patient has been getting metoprolol total of 100 mg in 24 hours while in hospital, recommendation was to start her on diltiazem 30 mg daily and discharge on her home metoprolol succinate of 50 Mg at bedtime. No Lasix at the time of discharge as patient will be resuming her home hydrochlorothiazide upon discharge. Patient to follow-up with cardiology within 1 week time upon discharge. Heart rate are doing better after starting diltiazem, cardiology okay with discharge, patient being discharged today. Demand Ischemia: Troponin elevated at 53, flat trended. Patient with no chest pain. Continue telemetry monitoring. DVT Px: pt on therapeutic lovenox due to afib rvr. to eliquis from pm of 06/06 Patient is being discharged home with Family support with following instructions at the point of discharge: Follow-up with your primary care physician within a week time and likely you will need labs CBC/CMP/magnesium/phosphorus. You were being treated for pneumonia and UTI and blood infection. You will be discharged on antibiotic to complete the course. Continue with probiotic use. You are also evaluated for atrial fibrillation with rapid heart rate, cardiology evaluated you while in hospital. You are being discharged on eliquis, Cardizem 30 mg daily and your prior to arrival home dose of metoprolol in the night. Follow-up with your cardiology in a week of discharge. Continue to take your hydrochlorothiazide upon discharge. Maintain fluid restriction of 1.5 L a day. Hold CellCept until antibiotic course is completed. Take your medications as prescribed. Please make sure that you are able to get your medications today by calling your pharmacy before you leave the hospital so that your treatment continuity is not broken. Home Health Attestation I certify that this patient is under my care and that I, or a physicians assistant warehouse manager working with me, had a face to-face encounter that meets the home health [id number] encounter requirements with this patient. The encounter with the patient was in whole, or in part, for the following medical condition, which is the primary reason for home health care (list medical condition): I certify that, based on my findings, the following services are medically necessary home health services: My clinical findings support the need for the above services because: Further, I certify that my clinical findings support that this patient is homebound (i.e. absences from home require considerable and taxing effort and are for medical reasons or moravian services or infrequently or of short duration when for other reasons) because: Certification for Home Health Services: Based on the above findings, I certify that this patient is confined to the home and needs intermittent [facility] care, physical therapy and/or speech therapy or continues to need occupational therapy. The patient is under my care, and I have initiated the establishment of the plan of care. This patient will be followed by a physician who will periodically review the plan of care. Total Time Total Time Spent Total Time Spent (In Minutes): 40 Discharge Plan Discharge Items Patient Disposition: Home - Self-Care Reason For Visit: SEPSIS Discharge Diagnosis: Sepsis secondary to pneumonia Pneumonia Complicated UTI Bacteremia A-fib RVR Demand ischemia Activity: Resume your previous activity Non-emergency contact: Primary Care Provider Call non-emergency contact if: you have any medication questions, your symptoms worsen and your temperature is above 101 Follow-up/Referrals: Saroj Kong [Primary Care Provider] - Diet: Heart Healthy Fluids: 1500ml (6 cups) Addtl Attending Provider Instructions: Follow-up with your primary care physician within a week time and likely you will need labs CBC/CMP/magnesium/phosphorus. You were being treated for pneumonia and UTI and blood infection. You will be discharged on antibiotic to complete the course. Continue with probiotic use. You are also evaluated for atrial fibrillation with rapid heart rate, cardiology evaluated you while in hospital. You are being discharged on eliquis, Cardizem 30 mg daily and your prior to arrival home dose of metoprolol in the night. Follow-up with your cardiology in a week of discharge. Continue to take your hydrochlorothiazide upon discharge. Maintain fluid restriction of 1.5 L a day. Hold CellCept until antibiotic course is completed. Take your medications as prescribed. Please make sure that you are able to get your medications today by calling your pharmacy before you leave the hospital so that your treatment continuity is not broken. Pending Studies at Discharge: Yes Stand-Alone Forms: My [facility] [employer] Data, Smoking Cessation Medications and DC Order Prescriptions: New Eliquis 5 mg tablet 5 mg PO BID Qty: 60 0RF levofloxacin 750 mg Tablet 750 mg PO DAILY@1600 9 Days Qty: 9 0RF diltiazem HCl 30 mg Tablet 30 mg PO QAM Qty: 30 0RF Advanced Probiotic 625 mg (10 billion cell) Capsule 1 cap PO DAILY 14 Days Qty: 14 0RF benzonatate 100 mg Capsule 200 mg PO TID 5 Days Qty: 30 0RF guaifenesin [Mucinex] 600 mg Tablet Extended Release 12hr 600 mg PO Q12 5 Days Qty: 10 0RF Continued hydroxychloroquine 200 mg Tablet 200 mg PO BID albuterol sulfate 90 mcg/actuation Hfa Aerosol Inhaler 1 inh INHALATION QID PRN (Reason: SHORT OF BREATH) esomeprazole magnesium [Nexium] 20 mg Capsule,Delayed Release(Dr/Ec) 20 mg PO BID budesonide-formoterol [Symbicort] 160-4.5 mcg/actuation Hfa Aerosol Inhaler 2 puff INHALATION BID PRN (Reason: SHORT OF BREATH) cholecalciferol (vitamin D3) [Vitamin D3] 125 mcg (5,000 unit) Tablet 125 mcg PO QAM melatonin 3 mg Tablet 3 mg PO HS PRN (Reason: Sleep) nystatin 100,000 unit/mL suspension 500,000 unit PO UD Rx Instructions: Swish and Swallow four times daily metoprolol succinate 50 mg tablet extended release 24 hr 50 mg PO HS acetaminophen [Tylenol Ex Str Rapid Release] 500 mg Tablet 500 mg PO Q6H PRN (Reason: Pain) potassium chloride 20 mEq tablet,ER particles/crystals 20 meq PO DAILY famotidine [Pepcid] 20 mg Tablet 20 mg PO HS hydrochlorothiazide 25 mg tablet 25 mg PO DAILY Held mycophenolate mofetil [CellCept] 500 mg Tablet 500 mg PO UD Hold Instructions: Resume on 06/14/24. Hold until antibiotic course is completed. Patient Comments: 1 DOSE IN QAM/ 2 TABS IN QPM Rx Instructions: Take 500mg by mouth in the morning and 1000mg by mouth in the evening Discharge Orders: Discharge Order (Routine); Ordered 06/07/24 Ordered By: Jon Chin Admission Data Admit Date/Time: 06/02/24 16:57 Attending Provider: Jon Chin Admit Provider: Tucker Gonzalez Primary Care Provider: Saroj Kong Other Providers: Tucker Gonzalez; Maria Luisa Dean; Shahid Brothers; Jenifer Antoyn; John Jefferson I.; Damian Zamora II; Danae Cassidy; Rodrigue Gonzalez; Rosales Patino; Opal Abebe
[2024-06-07 17:04] VITALS: BP 101/65; PULSE 68
[2024-06-07] MEDS ORDERED: METOPROLOL SUCC 50MG EXT REL TAB PO SCH (21:00)
== END 2024-06-07 18:33 | disposition home or self-care (01) | DRG 871 ==
LOC: ED 14:11 → SUATTDRO 16:57 → 4W 16:57

== ENCOUNTER 2024-06-16 18:19 | Observation (INO) ==
--- NOTE | 2024-06-16 18:57 | Emergency Department Note ---
Impression & Plan Generalized weakness, Dizziness, Hypokalemia, Tachycardia, Elevated troponin ED Provider Note ED Provider Note NAME: ALONDRA STEWARD AGE:74 SEX: Female : 1950 ARRIVES VIA: Private vehicle INFORMANT: Patient ED PROVIDER(s): Beatrice Mohr DO CHIEF COMPLAINT: Referred by cardiology HPI: This is a 74-year-old female who presents emergency department after she was contacted by Elena Asif with cardiology this evening and instructed to come to the ER for additional evaluation due to concern for tachycardia and possible "flutter" of her heart. Patient was recently admitted with pneumonia and a urinary tract infection and states she became septic. She states she was discharged on June 07 and the following day a heart monitor was placed. She states while she was admitted they told her she had atrial fibrillation. She does not recall ever having A-fib in the past. She was discharged on Eliquis which she states she is taking. She does follow with Dr. Owen of cardiology routinely. She states she has been taking antibiotics as previously prescribed and today was the last dose of her course of treatment. She states she has not had an appetite and she is felt weak and dizzy particular with standing and walking. She denies any coming chest pain or abdominal pain. She denies any diarrhea or vomiting. She denies fevers or chills. She states while hospitalized she did have leg swelling however that has gone away. PAST MEDICAL HISTORY:See Below PAST SURGICAL HISTORY:See Below FAMILY HISTORY:See Below SOCIAL HISTORY:See Below HOME MEDICATIONS:See Below ALLERGIES:See Below VITALS:See Below PHYSICAL EXAMINATION: GENERAL: alert, well appearing, well nourished, no distress, non-toxic EYE EXAM: normal conjunctiva, PERRL and EOM's grossly intact OROPHARYNX: no exudate, no erythema, lips, buccal mucosa, and tongue normal and mucous membranes are moist NECK: supple, no nuchal rigidity, no adenopathy, non-tender LUNGS: Clear to auscultation. Normal chest wall mechanics, no w/r/r HEART: no murmurs, S1 normal and S2 normal ABDOMEN: abdomen soft, non-tender, normo-active bowel sounds, no masses, no rebound or guarding. BACK: Back is symmetrical on inspection SKIN: no rashes, petechiae, orbruising UPPER EXTREMITIES: upper extremities are grossly normal. FROM, nml pulses b/l. LOWER EXTREMITIES: No pitting edema. FROM, nml pulses b/l. NEURO EXAM: Normal sensorium, cranial nerves II-XII grossly intact, normal speech, no facial droop,nogross weakness of arms, no gross weakness of legs. Gross sensation intact. No ataxia. Vital Signs: reviewed and remarkable Differential Diagnosis: Dysrhythmia, PVCs, PACs, electrolyte abnormality, thyroid storm, ACS, PE, dehydration, anxiety, medication ADR, occult infection, as well as others were considered MEDICAL DECISION MAKING: This is a 74-year-old female who presents emergency department after being contacted by cardiology and instructed to come in due to tachycardia and dysrhythmia noted on her heart monitor. Patient admits to recent dizziness and weakness particularly with standing and exertion. She states she has had decreased oral intake since being discharged following an admission for sepsis from multifocal pneumonia and UTI last week. Patient did just finish her antibiotics today. Labs drawn and sent, IV established, EKG and chest ray performed at bedside interpreted by me and patient monitored on telemetry. Patient appeared to be normal sinus/sinus tach with intermittent episodes of atrial fibrillation causing a variable heart rate up into the 120s. She states with ambulation she does feel short of breath and has a sense of discomfort in the chest from the rapid heart rate. Patient noted to have significant hypokalemia and was given oral potassium repletion. She was started on IV fluids as her creatinine was elevated and with her decreased oral intake I suspect she is dehydrated. We discussed all results at bedside. Given recent significant illness, recent diagnosis of atrial fibrillation and recurrent tachycardia as well as hypokalemia that we will need further repletion, we discussed additional inpatient evaluation. Case discussed with the hospitalist team for additional evaluation management. Consultation(s): 2350: Discussed with Dr. Leon for additional inpatient evaluation and mgmt. ER Treatment Provided: See below Diagnostics Interpreted By Me: -ECG: Sinus tach at 100, normal axis, right bundle branch block, nonspecific ST/T wave changes -Cardiac Monitoring: An order was placed for continuous cardiac monitoring. The monitor shows a rate of 125 with intermittent a.fib rhythm. -Laboratory studies: As stated above and show below. -Imaging studies: X-ray Chest: A single view study of the chest was reviewed and was negative for cardiomegaly, focal infiltrate, effusion, pulmonary edema, or wide mediastinum. Triage Nursing Note Reviewed Prior/Outside Records Reviewed -recent cardiology consultation during her admission reviewed Past Med/Surg History Problem List (Updated 06/17/24 @ 02:39 by Beatrice Mohr, ) Elevated troponin (Acute) Tachycardia (Acute) Hypokalemia (Acute) Dizziness (Acute) Generalized weakness (Acute) Upper airway cough syndrome Hypoxic respiratory failure Immunosuppression due to drug therapy Chronic fibrosis of lung Hypomagnesemia Hypokalemia Demand ischemia of myocardium Severe sepsis with acute organ dysfunction Multifocal pneumonia Community acquired pneumonia (Acute) Atrial fibrillation with rapid ventricular response (Acute) Acute respiratory distress (Acute) Sepsis (Acute) Weakness Encounter for pre-operative examination COVID-19 (Acute) Pneumonia (Acute) Medical History Hx of endometriosis Degenerative disc disease Osteoarthritis History of kidney stones Esophageal dilatation HX OF Dysphagia GERD (gastroesophageal reflux disease) History of anemia Irregular heart rate follows w/ Dr Owen History of COVID-19 06/22/23- home test-resolved Hx of recurrent pneumonia reason for inhaler- Hypertension Lupus (systemic lupus erythematosus) Scleroderma affects lungs, reason for cellcept Surgical History History of anesthesia reaction EPIDURAL WITH LABOR (WENT INTO RESPIRATORY ARREST D/T "GOING BOTH WAYS") History of esophagogastroduodenoscopy (EGD) History of colonoscopy H/O total hysterectomy History of section X 1 Hx of basal cell carcinoma excision LEG History of nasal septoplasty History of tooth extraction History of cataract surgery RT/LEFT Family History Grandmother (Maternal) Family hx of colon cancer Other No family history of adverse response to anesthesia Social History Smoking Status: Never smoker Second Hand Exposure: Yes ( A CHILD); Do You Dip or Chew Tobacco: No; Hx Alcohol Use: Yes Alcohol type: wine and hard liquor Hx Substance Use: No Preferred Language: Turkmen Communication Ability: Effective Claims Representative Required: No Beliefs That Will Affect Care: None Current Living Situation: Spouse Feels Safe at Home: Yes Safety Concerns: Feels Safe At This Time Assistive Devices: None Allergies Allergies Allergy/AdvReac Type Severity Reaction Status Date / Time latex Allergy Mild SKIN Verified 06/09/24 14:46 IRRITATION levofloxacin [From Levaquin] AdvReac Severe Diarrhea Unverified 06/09/24 14:46 metronidazole AdvReac Severe Diarrhea Unverified 06/09/24 14:46 adhesive tape AdvReac Mild SKIN Verified 06/09/24 14:46 REDNESS Home Meds Home Medications Medication Instructions Recorded Confirmed cholecalciferol (vitamin D3) 125 125 mcg PO QAM 10/31/20 06/16/24 mcg (5,000 unit) tablet (Vitamin D3) hydroxychloroquine 200 mg tablet 200 mg PO BID 10/31/20 06/16/24 mycophenolate mofetil 500 mg 500 mg PO UD 10/31/20 06/16/24 tablet (CellCept) acetaminophen 500 mg tablet 500 mg PO Q6H PRN Pain 06/02/24 06/16/24 famotidine 20 mg tablet (Pepcid) 20 mg PO HS 06/02/24 06/16/24 hydrochlorothiazide 25 mg tablet 25 mg PO QAM 06/02/24 06/16/24 metoprolol succinate 50 mg 50 mg PO HS 06/02/24 06/16/24 tablet,extended release 24 hr potassium chloride 20 mEq 20 meq PO DAILY 06/02/24 06/16/24 tablet,extended release(part/cryst) esomeprazole magnesium 40 mg 40 mg PO BID 06/16/24 06/16/24 capsule,delayed release Previous Rx's Medication Instructions Recorded apixaban 5 mg tablet (Eliquis) 5 mg PO BID #60 tabs 06/06/24 L.acidop,casei,lactis,rham-B.lact,juana 1 cap PO DAILY 2 weeks #14 caps 06/07/24 625 mg (10 billion cell) capsule (Advanced Probiotic) diltiazem HCl 30 mg tablet 30 mg PO QAM #30 tabs 06/07/24 chlorpheniramine maleate 4 mg 4 mg PO Q12H 30 days #60 tabs 06/14/24 tablet (Allergy Relief (chlorpheniramine)) fluticasone propionate 50 1 spray intranasal BID #18.2 mL 06/14/24 mcg/actuation nasal spray,suspension (Flonase Allergy Relief) pseudoephedrine HCl 120 mg 120 mg PO BID 30 days #60 tabs 06/14/24 tablet,extended release (Sudafed 12 Hour) sodium chloride, sodium See Rx Instructions .Route 06/14/24 bicarb-nasal rinse squeeze bottle .COMPLEX #50 ea with packet (Neilmed Sinus Rinse Complete with packet) Results & Data (ED) Vital Signs Vital Signs - 24 hr 06/16/24 18:33 06/16/24 18:54 06/16/24 19:08 Temperature 36.6 C Temperature Source Temporal Artery Scan Pulse Rate 66 107 H Pulse Rate [Finger] 97 H Pulse Rate from SpO2 Sensor Respiratory Rate 16 18 Respiratory Effort / Characteristics Non-Labored Respiratory Depth Normal Blood Pressure 98/65 L Blood Pressure [Right Arm] 150/104 H Blood Pressure Mean 76 Blood Pressure Mean [Right Arm] 119 Blood Pressure Position [Right Arm] Sitting Pulse Oximetry 96 Oxygen Delivery Method Room Air Room Air Sepsis Recent Fever Within 48 Hours No Sepsis New/Unexplained Change in Mental Status No Sepsis Action Taken by Nursing No Action Required 06/16/24 21:06 06/16/24 23:06 Temperature Temperature Source Pulse Rate 88 Pulse Rate [Finger] 102 H Pulse Rate from SpO2 Sensor 89 Respiratory Rate 18 16 Respiratory Effort / Characteristics Non-Labored Spontaneous Respiratory Depth Normal Blood Pressure 120/78 Blood Pressure [Right Arm] 150/87 H Blood Pressure Mean 92 Blood Pressure Mean [Right Arm] 108 Blood Pressure Position [Right Arm] Sitting Pulse Oximetry 96 94 Oxygen Delivery Method Room Air Room Air Sepsis Recent Fever Within 48 Hours Sepsis New/Unexplained Change in Mental Status Sepsis Action Taken by Nursing Laboratory Data 06/16/24 19:36 06/16/24 19:36 Lab Results 06/16/24 06/16/24 06/16/24 Range/Units 19:36 21:00 21:33 WBC 7.64 (4.8-10.8) K/ul RBC 3.31 L (4.20-5.40) M/uL Hgb 13.3 (12.0-16.0) g/dl Hct 31.9 L (37.0-47.0) % MCV 96.4 (80.0-100.0) fL MCH 30.0 (25.0-34.0) pg MCHC 34.2 (32.0-36.0) g/dL RDW Std Deviation 51.1 H (36.4-46.3) fL RDW Coeff of Naz 22.5 H (11.5-14.5) % Plt Count 236 (130-400) K/uL MPV 10.0 (9.4-12.4) fL Immature Gran % (Auto) 1.2 % Neut % (Auto) 76.2 % Lymph % (Auto) 12.0 % [place] % (Auto) 10.1 % Eos % (Auto) 0.0 % Baso % (Auto) 0.5 % Neut # (Auto) 5.82 (1.40-6.50) K/uL Lymph # (Auto) 0.92 L (1.20-3.40) K/uL [place] # (Auto) 0.77 H (0.11-0.59) K/uL Eos # (Auto) 0.00 (0.00-0.50) K/uL Baso # (Auto) 0.04 (0.00-0.20) K/uL Immature Gran # (Auto) 0.09 (0.01-0.20) K/uL Polychromasia 1+ Anisocytosis Present PT 12.5 H (9.0-12.0) Seconds INR 1.2 H (0.9-1.1) Sodium 136 (136-145) mmol/L Potassium 2.7 L (3.5-5.1) mmol/L Chloride 97 L (98-107) mmol/L Carbon Dioxide 31 (21-32) mmol/L Anion Gap 8 (3-11) BUN 25 H (6-23) mg/dl Creatinine 1.33 H (0.6-1.2) mg/dl Est Cr Clr Drug Dosing 38.4 ml/min eGFR 42.51 BUN/Creatinine Ratio 18.8 (10-20) Glucose 105 H (70-99(Fasting)) mg/dl Calcium 10.9 H (8.6-10.3) mg/dl Phosphorus 3.0 (2.5-4.9) mg/dl Magnesium 1.8 (1.7-2.4) mg/dl Total Bilirubin 0.8 (0.2-1.0) mg/dl AST 27 (13-39) U/L ALT 28 (7-52) U/L Alkaline Phosphatase 86 (34-104) U/L Troponin I High Sens 56.4 H* 56.0 H* (0-14) pg/ml Total Protein 6.8 (6.0-8.3) gm/dl Albumin 4.4 (3.4-5.0) gm/dl Globulin 2.4 L (2.5-4.0) gm/dl Albumin/Globulin Ratio 1.8 (0.9-2) Lipase 43 (11-82) U/L TSH 2.829 (0.300-4.500) uIu/ml Urine Color Yellow Urine Appearance Clear (Clear) Urine pH 5.0 (4.5-7.5) Ur Specific [place] 1.015 (1.000-1.030) Urine Protein Trace H (Negative) Urine Glucose (UA) Negative (Negative) Urine Ketones Negative (Negative) Urine Blood Negative (Negative) Urine Nitrite Negative (Negative) Urine Bilirubin Negative (Negative) Urine Urobilinogen Negative (Negative) Ur Leukocyte Esterase Negative (Negative) Urine WBC (Auto) 0-5 (0-5) /hpf Urine RBC (Auto) 6-10 H (0-2) /hpf U Hyaline Cast (Auto) 11-20 H (0-2) /lpf U Epithel Cells (Auto) 0-2 (0-2) /hpf Urine Bacteria (Auto) None Seen (None Seen) Hyaline Casts Present A (None Presnt) /lpf Administered Medications Potassium Chloride/Sodium Chloride (Normal Saline W/20 Meq Kcl) 20 meq in 1,000 mls @ 100 mls/hr IV .Q10H ONE Stop: 06/17/24 11:14 Last Admin: 06/17/24 01:25 Dose: 100 mls/hr Documented By: CLC Discontinued Medications Magnesium Sulfate/Dextrose (Magnesium Sulfate / D5w) 1 gm in 100 mls @ 100 mls/hr IV NOW STA Stop: 06/16/24 21:19 Last Infusion: 06/16/24 23:14 Dose: Infused Documented By: Admin: 06/16/24 20:59 Dose: 100 mls/hr Documented By: DEAN Sodium Chloride (Nss) 1,000 mls @ 125 mls/hr IV .Q8H CINDY Stop: 06/17/24 20:29 Last Infusion: 06/17/24 01:35 Dose: Infused Documented By: Admin: 06/16/24 20:59 Dose: 125 mls/hr Documented By: DEAN Magnesium Sulfate/Dextrose (Magnesium Sulfate / D5w) 1 gm in 100 mls @ 50 mls/hr IV ONE STA Stop: 06/17/24 02:07 Last Infusion: 06/17/24 02:20 Dose: Infused Documented By: Admin: 06/17/24 00:18 Dose: 50 mls/hr Documented By: GRETCHEN Potassium Chloride (Potassium Chloride Crtab 20 Meq Tabcr) 40 meq PO NOW STA Stop: 06/16/24 20:20 Last Admin: 06/16/24 20:59 Dose: 40 meq Documented By: DEAN Potassium Chloride (Potassium Chloride Crtab 20 Meq Tabcr) 40 meq PO NOW STA Stop: 06/17/24 00:07 Last Admin: 06/17/24 00:18 Dose: 40 meq Documented By: GRETCHEN Imaging Data Radiologist's Impression: Chest X-Ray 06/16/24 18:52 Exam(s): XR CXR 1 VIEW EXAM: XR Chest, 1 View CLINICAL HISTORY: Reason for exam: weakness, recent PNA. TECHNIQUE: Frontal view of the chest. COMPARISON: X-ray chest: 06/06/2024 FINDINGS: Lungs: Mildly prominent bilateral perihilar pulmonary vascular markings. Residual mild left basilar interstitial thickening remains with improvement since prior comparison. No consolidation. Pleural space: A persistently elevated left hemidiaphragm. No pneumothorax. Heart: Unremarkable. No cardiomegaly. Mediastinum: Normal mediastinal contour. Bones/joints: No acute osseous findings IMPRESSION: Left basilar mild interstitial thickening/infiltrates remain with interval improvement. A persistently elevated left hemidiaphragm. . Electronically signed by: Maribel Lui MD, KORINR 06/16/24 20:59 PM Discharge Plan Visit Data Chief Complaint: Vertigo Stated Complaint: NAUSEA, MONITOR ON, VERTIGO, POTASSIUM ED Provider: Beatrice Mohr Discharge Problem: Generalized weakness, Dizziness, Hypokalemia, Tachycardia, Elevated troponin Patient Disposition: Admitted As Inpatient Discharge Instructions Interventions: ED Discharge Assessment Last Done: 06/17/24 00:47
[2024-06-16 20:05] LABS: Albumin Globulin Ratio 1.8 (0.9-2); Albumin Level 4.4 gm/dl (3.4-5.0); BUN Creatinine Ratio 18.8 (10-20); Bilirubin,Total 0.8 mg/dl (0.2-1.0); Calcium 10.9 mg/dl (8.6-10.3); Creatinine Clr Calc Pharmacy 38.4 ml/min; Globulin 2.4 gm/dl (2.5-4.0); Magnesium 1.8 mg/dl (1.7-2.4); Potassium 2.7 mmol/L (3.5-5.1); Total Protein 6.8 gm/dl (6.0-8.3)
[2024-06-16 20:17] LABS: INR 1.2 (0.9-1.1); Prothrombin Time 12.5 Seconds (9.0-12.0)
[2024-06-16 20:20] LABS: Troponin I High Sensitivity 56.4 pg/ml (0-14)
[2024-06-16 20:21] LABS: Thyroid Stimulating Hormone 2.829 uIu/ml (0.300-4.500)
[2024-06-16 20:36] LABS: Hematocrit (blood only) 31.9 % (37.0-47.0); Hemoglobin 13.3 g/dl (12.0-16.0); Mean Corpuscular Hgb Conc 34.2 g/dL (32.0-36.0); Mean Corpuscular Volume 96.4 fL (80.0-100.0); Platelet Count 236 K/uL (130-400); RDW Coefficient of Variation 22.5 % (11.5-14.5); RDW Standard Deviation 51.1 fL (36.4-46.3); Red Blood Count 3.31 M/uL (4.20-5.40); White Blood Count 7.64 K/ul (4.8-10.8)
[2024-06-16] MEDS: MAGNESIUM SULFATE / D5W 1 GM/100 ML BAG IV STA (20:59)
[2024-06-16] MEDS: SODIUM CHLORIDE 0.9% 1,000 ML IV SCH (20:59)
[2024-06-16] MEDS: POTASSIUM CHLORIDE CRTAB 20 MEQ TABCR PO STA (20:59)
--- NOTE | 2024-06-16 20:59 | XRay Report ---
Exam(s): XR CXR 1 VIEW EXAM: XR Chest, 1 View CLINICAL HISTORY: Reason for exam: weakness, recent PNA. TECHNIQUE: Frontal view of the chest. COMPARISON: X-ray chest: 06/06/2024 FINDINGS: Lungs: Mildly prominent bilateral perihilar pulmonary vascular markings. Residual mild left basilar interstitial thickening remains with improvement since prior comparison. No consolidation. Pleural space: A persistently elevated left hemidiaphragm. No pneumothorax. Heart: Unremarkable. No cardiomegaly. Mediastinum: Normal mediastinal contour. Bones/joints: No acute osseous findings IMPRESSION: Left basilar mild interstitial thickening/infiltrates remain with interval improvement. A persistently elevated left hemidiaphragm. . Electronically signed by: Maribel Lui MD, DABR 06/16/24 20:59 PM
[2024-06-16 21:55] LABS: Appearance Urine Clear (Clear); Bacteria Urine Automated None Seen (None Seen); Bilirubin Urine Negative (Negative); Blood Urine Negative (Negative); Color Urine Yellow; Epithelial Cell Urine Auto 0-2 /hpf (0-2); Glucose Urine UA Negative (Negative); Hyaline Casts Urine Present /lpf (None Presnt); Ketones Urine Negative (Negative); Leukocyte Esterase Urine Negative (Negative); Nitrite Urine Negative (Negative); Protein Urine Trace (Negative); Specific Gravity Urine 1.015 (1.000-1.030); Urobilinogen Urine Negative (Negative); WBC Urine Automated 0-5 /hpf (0-5)
[2024-06-16 22:16] LABS: Anisocytosis Present; Basophils # (auto) 0.04 K/uL (0.00-0.20); Basophils % (auto) 0.5 %; Immature Granulocytes # (auto) 0.09 K/uL (0.01-0.20); Immature Granulocytes % (auto) 1.2 %; Lymphocytes # (auto) 0.92 K/uL (1.20-3.40); Monocytes # (auto) 0.77 K/uL (0.11-0.59); Monocytes % (auto) 10.1 %; Neutrophils # (auto) 5.82 K/uL (1.40-6.50); Neutrophils % (auto) 76.2 %; Polychromasia 1+
--- NOTE | 2024-06-16 23:57 | History & Physical Report ---
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 Eliquis Full code Text document was generated using [employer] voice recognition software. It may contain grammatical or spelling errors. Kindly contact undersigned for clarification of any documentation item in question. History of Present Illness Chief Complaint: Abnormal heartbeat, near-syncope Primary Care Provider: Saroj Kong History obtained from patient and records. 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 Recent confinement 2 weeks ago for sepsis secondary to pneumonia/complicated UTI. A-fib with RVR during confinement. Diltiazem added to patient's beta-eliza on discharge. Outpatient event monitor to be arranged. Patient discharged on Levaquin course following ID recommendations. Patient not eating well upon being discharged to home. Nausea symptoms without abdominal pain. Persistent frontal headache symptoms which he attributed to persistent cough from pneumonia. Sudafed prescribed by beehive kiln charcoal burner on follow-up visit a few days ago for persistent cough/congestion. Cough symptoms not any worse though as per patient. Worsening weakness at home. [place] like she was going to pass out. Denies chest pain, SOB. Patient received a call from [facility] [place] today that event monitor showed tachycardia. Patient directed to ER for evaluation. SBP 90s upon arrival at the ER. 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 Allergies Allergy/AdvReac Type Severity Reaction Status Date / Time latex Allergy Mild SKIN Verified 06/09/24 14:46 IRRITATION levofloxacin [From Levaquin] AdvReac Severe Diarrhea Unverified 06/09/24 14:46 metronidazole AdvReac Severe Diarrhea Unverified 06/09/24 14:46 adhesive tape AdvReac Mild SKIN Verified 06/09/24 14:46 REDNESS Home Medications Medication Instructions Recorded Confirmed Type cholecalciferol (vitamin D3) 125 125 mcg PO QAM 10/31/20 06/16/24 History mcg (5,000 unit) tablet (Vitamin D3) hydroxychloroquine 200 mg tablet 200 mg PO BID 10/31/20 06/16/24 History mycophenolate mofetil 500 mg 500 mg PO UD 10/31/20 06/16/24 History tablet (CellCept) acetaminophen 500 mg tablet 500 mg PO Q6H PRN Pain 06/02/24 06/16/24 History famotidine 20 mg tablet (Pepcid) 20 mg PO HS 06/02/24 06/16/24 History hydrochlorothiazide 25 mg tablet 25 mg PO QAM 06/02/24 06/16/24 History metoprolol succinate 50 mg 50 mg PO HS 06/02/24 06/16/24 History tablet,extended release 24 hr potassium chloride 20 mEq 20 meq PO DAILY 06/02/24 06/16/24 History tablet,extended release(part/cryst) apixaban 5 mg tablet (Eliquis) 5 mg PO BID #60 tabs 06/06/24 06/16/24 Rx L.acidop,casei,lactis,rham-B.lact,juana 1 cap PO DAILY 2 weeks #14 caps 06/07/24 06/16/24 Rx 625 mg (10 billion cell) capsule (Advanced Probiotic) diltiazem HCl 30 mg tablet 30 mg PO QAM #30 tabs 06/07/24 06/16/24 Rx chlorpheniramine maleate 4 mg 4 mg PO Q12H 30 days #60 tabs 06/14/24 06/16/24 Rx tablet (Allergy Relief (chlorpheniramine)) fluticasone propionate 50 1 spray intranasal BID #18.2 mL 06/14/24 06/16/24 Rx mcg/actuation nasal spray,suspension (Flonase Allergy Relief) pseudoephedrine HCl 120 mg 120 mg PO BID 30 days #60 tabs 06/14/24 06/16/24 Rx tablet,extended release (Sudafed 12 Hour) sodium chloride, sodium See Rx Instructions .Route 06/14/24 06/16/24 Rx bicarb-nasal rinse squeeze bottle .COMPLEX #50 ea with packet (Neilmed Sinus Rinse Complete with packet) esomeprazole magnesium 40 mg 40 mg PO BID 06/16/24 06/16/24 History capsule,delayed release Past Med/Surg History Problem List (Updated 06/17/24 @ 02:39 by Beatrice Mohr, DO) Elevated troponin (Acute) Tachycardia (Acute) Hypokalemia (Acute) Dizziness (Acute) Generalized weakness (Acute) Upper airway cough syndrome Hypoxic respiratory failure Immunosuppression due to drug therapy Chronic fibrosis of lung Hypomagnesemia Hypokalemia [place] ischemia of myocardium Severe sepsis with acute organ dysfunction Multifocal pneumonia Community acquired pneumonia (Acute) Atrial fibrillation with rapid ventricular response (Acute) Acute respiratory distress (Acute) Sepsis (Acute) Weakness Encounter for pre-operative examination COVID-19 (Acute) Pneumonia (Acute) Medical History Hx of endometriosis Degenerative disc disease Osteoarthritis History of kidney stones Esophageal dilatation HX OF Dysphagia GERD (gastroesophageal reflux disease) History of anemia Irregular heart rate follows w/ Dr Owen History of COVID-19 06/22/23- home test-resolved Hx of recurrent pneumonia reason for inhaler- Hypertension Lupus (systemic lupus erythematosus) Scleroderma affects lungs, reason for cellcept Surgical History History of anesthesia reaction EPIDURAL WITH LABOR (WENT INTO RESPIRATORY ARREST D/T "GOING BOTH WAYS") History of esophagogastroduodenoscopy (EGD) History of colonoscopy H/O total hysterectomy History of section X 1 Hx of basal cell carcinoma excision LEG History of nasal septoplasty History of tooth extraction History of cataract surgery RT/LEFT Family History Grandmother (Maternal) Family hx of colon cancer Other No family history of adverse response to anesthesia Social History Smoking Status: Never smoker Second Hand Exposure: Yes ( A CHILD); Do You Dip or Chew Tobacco: No; Hx Alcohol Use: Yes Alcohol type: wine and hard liquor Hx Substance Use: No Preferred Language: Lao Communication Ability: Effective Medical Service Representative Required: No Beliefs That Will Affect Care: None Current Living Situation: Spouse Feels Safe at Home: Yes Safety Concerns: Feels Safe At This Time Assistive Devices: None Review of Systems Review of Systems: As per HPI, all other systems reviewed and negative Physical Exam Physical Exam: GENERAL: Comfortable, pleasant, no respiratory distress SKIN: Normal color, warm HEENT: [place] palpebral conjunctivae, no ptosis, dry buccal mucosa NECK : Supple, no tenderness CHEST : CTA, no tenderness HEART : RRR, no obvious murmurs ABDOMEN: Some distention, nontender EXTREMITIES : Minimal LE swelling, no LE tenderness, no other conspicuous deformities noted NEUROLOGIC : Coherent, no facial asymmetry, no other gross focality Results & Data Results & Data Vital Signs (Past 12 Hours) Vital Signs Temp Pulse Pulse Resp BP BP Pulse Ox 06/16/24 23:06 88 16 120/78 94 06/16/24 21:06 102 H 18 150/87 H 96 06/16/24 19:08 97 H 18 150/104 H 96 06/16/24 18:54 107 H 06/16/24 18:33 36.6 C 66 16 98/65 L O2 Del Method 06/16/24 23:06 Room Air 06/16/24 21:06 Room Air 06/16/24 19:08 Room Air 06/16/24 18:54 06/16/24 18:33 Room Air Laboratory Results Laboratory Results WBC 7.64 K/ul (4.8-10.8) 06/16/24 19:36 RBC 3.31 M/uL (4.20-5.40) L 06/16/24 19:36 Hgb 13.3 g/dl (12.0-16.0) 06/16/24 19:36 Hct 31.9 % (37.0-47.0) L 06/16/24 19:36 MCV 96.4 fL (80.0-100.0) 06/16/24 19:36 MCH 30.0 pg (25.0-34.0) 06/16/24 19:36 MCHC 34.2 g/dL (32.0-36.0) 06/16/24 19:36 RDW Std Deviation 51.1 fL (36.4-46.3) H 06/16/24 19:36 RDW Coeff of Naz 22.5 % (11.5-14.5) H 06/16/24 19:36 Plt Count 236 K/uL (130-400) 06/16/24 19:36 MPV 10.0 fL (9.4-12.4) 06/16/24 19:36 Immature Gran % (Auto) 1.2 % 06/16/24 19:36 Neut % (Auto) 76.2 % 06/16/24 19:36 Lymph % (Auto) 12.0 % 06/16/24 19:36 [place] % (Auto) 10.1 % 06/16/24 19:36 Eos % (Auto) 0.0 % 06/16/24 19:36 Baso % (Auto) 0.5 % 06/16/24 19:36 Neut # (Auto) 5.82 K/uL (1.40-6.50) 06/16/24 19:36 Lymph # (Auto) 0.92 K/uL (1.20-3.40) L 06/16/24 19:36 [place] # (Auto) 0.77 K/uL (0.11-0.59) H 06/16/24 19:36 Eos # (Auto) 0.00 K/uL (0.00-0.50) 06/16/24 19:36 Baso # (Auto) 0.04 K/uL (0.00-0.20) 06/16/24 19:36 Immature Gran # (Auto) 0.09 K/uL (0.01-0.20) 06/16/24 19:36 Polychromasia 1+ 06/16/24 19:36 Anisocytosis Present 06/16/24 19:36 PT 12.5 Seconds (9.0-12.0) H 06/16/24 19:36 INR 1.2 (0.9-1.1) H 06/16/24 19:36 Sodium 136 mmol/L (136-145) 06/16/24 19:36 Potassium 2.7 mmol/L (3.5-5.1) L 06/16/24 19:36 Chloride 97 mmol/L (98-107) L 06/16/24 19:36 Carbon Dioxide 31 mmol/L (21-32) 06/16/24 19:36 Anion Gap 8 (3-11) 06/16/24 19:36 BUN 25 mg/dl (6-23) H 06/16/24 19:36 Creatinine 1.33 mg/dl (0.6-1.2) H 06/16/24 19:36 Est Cr Clr Drug Dosing 38.4 ml/min 06/16/24 19:36 eGFR 42.51 06/16/24 19:36 BUN/Creatinine Ratio 18.8 (10-20) 06/16/24 19:36 Glucose 105 mg/dl (70-99(Fasting)) H 06/16/24 19:36 Calcium 10.9 mg/dl (8.6-10.3) H 06/16/24 19:36 Magnesium 1.8 mg/dl (1.7-2.4) 06/16/24 19:36 Total Bilirubin 0.8 mg/dl (0.2-1.0) 06/16/24 19:36 AST 27 U/L (13-39) 06/16/24 19:36 ALT 28 U/L (7-52) 06/16/24 19:36 Alkaline Phosphatase 86 U/L (34-104) 06/16/24 19:36 Troponin I High Sens 56.0 pg/ml (0-14) H* 06/16/24 21:33 Total Protein 6.8 gm/dl (6.0-8.3) 06/16/24 19:36 Albumin 4.4 gm/dl (3.4-5.0) 06/16/24 19:36 Globulin 2.4 gm/dl (2.5-4.0) L 06/16/24 19:36 Albumin/Globulin Ratio 1.8 (0.9-2) 06/16/24 19:36 Lipase 43 U/L (11-82) 06/16/24 19:36 TSH 2.829 uIu/ml (0.300-4.500) 06/16/24 19:36 Urine Color Yellow 06/16/24 21:00 Urine Appearance Clear (Clear) 06/16/24 21:00 Urine pH 5.0 (4.5-7.5) 06/16/24 21:00 Ur Specific [place] 1.015 (1.000-1.030) 06/16/24 21:00 Urine Protein Trace (Negative) H 06/16/24 21:00 Urine Glucose (UA) Negative (Negative) 06/16/24 21:00 Urine Ketones Negative (Negative) 06/16/24 21:00 Urine Blood Negative (Negative) 06/16/24 21:00 Urine Nitrite Negative (Negative) 06/16/24 21:00 Urine Bilirubin Negative (Negative) 06/16/24 21:00 Urine Urobilinogen Negative (Negative) 06/16/24 21:00 Ur Leukocyte Esterase Negative (Negative) 06/16/24 21:00 Urine WBC (Auto) 0-5 /hpf (0-5) 06/16/24 21:00 Urine RBC (Auto) 6-10 /hpf (0-2) H 06/16/24 21:00 U Hyaline Cast (Auto) 11-20 /lpf (0-2) H 06/16/24 21:00 U Epithel Cells (Auto) 0-2 /hpf (0-2) 06/16/24 21:00 Urine Bacteria (Auto) None Seen (None Seen) 06/16/24 21:00 Hyaline Casts Present /lpf (None Presnt) A 06/16/24 21:00 Impressions Chest X-Ray 06/16/24 18:52 Exam(s): XR CXR 1 VIEW EXAM: XR Chest, 1 View CLINICAL HISTORY: Reason for exam: weakness, recent PNA. TECHNIQUE: Frontal view of the chest. COMPARISON: X-ray chest: 06/06/2024 FINDINGS: Lungs: Mildly prominent bilateral perihilar pulmonary vascular markings. Residual mild left basilar interstitial thickening remains with improvement since prior comparison. No consolidation. Pleural space: A persistently elevated left hemidiaphragm. No pneumothorax. Heart: Unremarkable. No cardiomegaly. Mediastinum: Normal mediastinal contour. Bones/joints: No acute osseous findings IMPRESSION: Left basilar mild interstitial thickening/infiltrates remain with interval improvement. A persistently elevated left hemidiaphragm. . Electronically signed by: Maribel Lui MD, KORINR 06/16/24 20:59 PM Diagnostic Findings EKG as per my interpretation :Rate 100, NSR, LAD, LAFB, RBBB, anteroseptal infarct, PVCs
[2024-06-17] MEDS: MAGNESIUM SULFATE / D5W 1 GM/100 ML BAG IV STA (00:18)
[2024-06-17] MEDS: POTASSIUM CHLORIDE CRTAB 20 MEQ TABCR PO STA (00:18)
[2024-06-17] MEDS ORDERED: traMADol HCL 50 MG TABLET PO PRN (00:51)
[2024-06-17] MEDS ORDERED: PROMETHAZINE 6.25 MG/50.25 ML BAG IV PRN (00:51)
[2024-06-17] MEDS ORDERED: ACETAMINOPHEN 325 MG TAB PO PRN (00:51)
[2024-06-17] MEDS: NSS + 20MEQ KCL 20 MEQ/1,000 ML BAG IV ONE (01:25)
--- NOTE | 2024-06-17 02:04 | CT Scan Report ---
EXAM: CT head/brain wo con CLINICAL HISTORY: [place]cedo liquids TECHNIQUE: An axial non-contrast CT scan of the brain was performed from the skull base to the high parietal region. One of the following dose reduction techniques was utilized for this exam: Automated exposure control, adjustment of the mA and/or kV according to patient size, and use of iterative reconstruction. COMPARISON: None. FINDINGS: Brain Parenchyma: A few chronic lacunar infarcts identified bilateral basal ganglia, periventricular region, internal and external capsule. Diffuse hypodensity is identified in periventricular deep white matter. Normal attenuation of the cerebellum, and brainstem. No evidence of acute infarct, hemorrhage, or mass effect. Ventricular System: Mild dilatation of the ventricular system was seen. No evidence of hydrocephalus. Subarachnoid Spaces: Mild widening of sulci is identified No evidence of subarachnoid hemorrhage or extra-axial fluid collections. Cerebellum and Brainstem: Normal size and density No masses, lesions, or areas of abnormal density. Orbits: Normal appearance of the globes, optic nerves, and extraocular muscles. No evidence of orbital masses or abnormal signals. Sinuses: Mucosal thickening was identified in both sphenoid sinuses with air-fluid levels. Mild mucosal thickening was seen in both ethmoid sinuses. The rest of the paranasal sinuses are normal. Mastoid Air Cells: Clear mastoid air cells. No evidence of mastoiditis. Skull: Normal skull morphology. IMPRESSION: 1. No evidence of intracranial hemorrhage, gross territorial infarction or mass-effect. 2. Age-appropriate mild volume loss in brain parenchymal and bilateral periventricular deep white matter ischemic changes. 3. Few chronic lacunar infarcts basal ganglia, periventricular region, internal and external capsule bilaterally. 4. Sphenoid and ethmoid sinusitis bilaterally. Electronically signed by Georgia Soto 06-17-2024 02:03 AM
[2024-06-17] MEDS: POTASSIUM CHLORIDE CRTAB 20 MEQ TABCR PO ONE (03:08)
[2024-06-17 04:01] VITALS: O2SAT 95
[2024-06-17 05:44] LABS: Basophils # (auto) 0.03 K/uL (0.00-0.20); Basophils % (auto) 0.5 %; Eosinophils # (auto) 0.01 K/uL (0.00-0.50); Eosinophils % (auto) 0.2 %; Hematocrit (blood only) 30.1 % (37.0-47.0); Hemoglobin 11.3 g/dl (12.0-16.0); Immature Granulocytes # (auto) 0.07 K/uL (0.01-0.20); Immature Granulocytes % (auto) 1.1 %; Lymphocytes # (auto) 1.12 K/uL (1.20-3.40); Lymphocytes % (auto) 18.1 %; Mean Corpuscular Hemoglobin 35.6 pg (25.0-34.0); Mean Corpuscular Hgb Conc 37.5 g/dL (32.0-36.0); Mean Platelet Volume 10.2 fL (9.4-12.4); Monocytes # (auto) 0.71 K/uL (0.11-0.59); Monocytes % (auto) 11.5 %; Neutrophils # (auto) 4.25 K/uL (1.40-6.50); Neutrophils % (auto) 68.6 %; Platelet Count 193 K/uL (130-400); RDW Coefficient of Variation 21.4 % (11.5-14.5); RDW Standard Deviation 51.8 fL (36.4-46.3); Red Blood Count 3.17 M/uL (4.20-5.40); White Blood Count 6.19 K/ul (4.8-10.8)
[2024-06-17 06:00] LABS: BUN Creatinine Ratio 19.8 (10-20); Creatinine Clr Calc Pharmacy 49.7 ml/min
[2024-06-17 06:15] LABS: Anisocytosis Present; Polychromasia 1+
[2024-06-17] MEDS ORDERED: ACETAMINOPHEN 500 MG TAB PO PRN (06:24)
[2024-06-17 06:54] LABS: Rouleaux 1+
[2024-06-17] MEDS: MYCOPHENOLATE MOFETIL 250 MG CAP PO SCH (08:33)
[2024-06-17] MEDS: PANTOprazole 40 MG TAB PO SCH (08:33)
[2024-06-17] MEDS: HYDROXYCHLOROQUINE SULFATE 200 MG TAB PO SCH (08:34)
[2024-06-17] MEDS: APIXABAN 5 MG TABLET PO SCH (08:35)
[2024-06-17] MEDS: FLUTICASONE PROPIONATE NA SPR 16 GM BTL SCH (08:35)
[2024-06-17] MEDS: dilTIAZem HCL 30 MG TAB PO SCH (08:35)
[2024-06-17] MEDS: ADVANCED PROBIOTIC 625 MG CAPSULE PO SCH (08:35)
[2024-06-17] MEDS: POTASSIUM CHLORIDE CRTAB 20 MEQ TABCR PO SCH (08:38)
--- NOTE | 2024-06-17 08:38 | Cardiology Consultation ---
Date of Consultation June 17, 2024 Assessment & Plan (1) Generalized weakness: (2) Afib: (3) Lacunar infarction: (4) Elevated troponin: Plan Pmhx: 1. Scleroderma. 2. Significant Raynaud's phenomenon. 3. Echocardiogram 2022 at [facility] with normal biventricular size and function and normal pulmonary artery pressures. 4. History of palpitations. 5. Abnormal diffusion capacity by PFTs. (70% of predicted) 2022 6. GERD. 7. COVID-19 infection with almost 2-week hospitalization at [facility] 06/2020; recurrent Covid 06/2023 8. History of dysphagia, status post dilation in 2012. 9. Fatty infiltration of her liver. 10. Right bundle branch block 11. Lower extremity edema secondary to diltiazem 12. Splenic artery aneurysms 13. PAF 14. Chronic lacunar infarcts. Ms. Castillo is feeling much better with fluid and potassium resuscitation. It's a little unclear why her potassium dipped so low but I would attribute it to her poor po intake and hctz. She is not having any anginal symptoms and her troponin is essentially flat from her previous admission. I will have her get a repeat EKG this morning as she did have lateral ST depressions on her EKG in the ED. She continues on anticoagulation for stroke prevention. Originally we had intended to start Multaq but given that she is on hydroxychloroquine it is going to make antiarrhythmics contraindicated generally. We'll discuss with pharmacy and EP outpatient and see if there are options for her but for now will just use AV ty blockers. She has a new finding of chronic lacunar strokes on her CT scan of her head. She should be initiated on statin and baby aspirin. I did check in with her beach lifeguard who was ok with starting statin therapy. History of Present Illness Attending Physician: Jon Chin MD History of Present Illness Ms. Castillo presented to the ED last night for weakness. I had called her last evening to discuss the episodes of afib RVR she was having on her event monitor and she reported feeling very weak and nauseas with poor po intake so I recommended she come to the hospital. This morning she is feeling much better having received fluids and potassium. No chest pain or sob. No edema. She has been in SR with PACs on the monitor although this morning she appears to be going into afib. Allergies Allergy/AdvReac Type Severity Reaction Status Date / Time latex Allergy Mild SKIN Verified 06/09/24 14:46 IRRITATION levofloxacin [From Levaquin] AdvReac Severe Diarrhea Unverified 06/09/24 14:46 metronidazole AdvReac Severe Diarrhea Unverified 06/09/24 14:46 adhesive tape AdvReac Mild SKIN Verified 06/09/24 14:46 REDNESS Home Medications Medication Instructions Recorded Confirmed Type cholecalciferol (vitamin D3) 125 125 mcg PO QAM 10/31/20 06/16/24 History mcg (5,000 unit) tablet (Vitamin D3) hydroxychloroquine 200 mg tablet 200 mg PO BID 10/31/20 06/16/24 History mycophenolate mofetil 500 mg 500 mg PO UD 10/31/20 06/16/24 History tablet (CellCept) acetaminophen 500 mg tablet 500 mg PO Q6H PRN Pain 06/02/24 06/16/24 History famotidine 20 mg tablet (Pepcid) 20 mg PO HS 06/02/24 06/16/24 History hydrochlorothiazide 25 mg tablet 25 mg PO QAM 06/02/24 06/16/24 History metoprolol succinate 50 mg 50 mg PO HS 06/02/24 06/16/24 History tablet,extended release 24 hr potassium chloride 20 mEq 20 meq PO DAILY 06/02/24 06/16/24 History tablet,extended release(part/cryst) apixaban 5 mg tablet (Eliquis) 5 mg PO BID #60 tabs 06/06/24 06/16/24 Rx L.acidop,casei,lactis,rham-B.lact,juana 1 cap PO DAILY 2 weeks #14 caps 06/07/24 1 08/17/23 Rx 625 mg (10 billion cell) capsule (Advanced Probiotic) diltiazem HCl 30 mg tablet 30 mg PO QAM #30 tabs 06/07/24 06/16/24 Rx chlorpheniramine maleate 4 mg 4 mg PO Q12H 30 days #60 tabs 06/14/24 06/16/24 Rx tablet (Allergy Relief (chlorpheniramine)) fluticasone propionate 50 1 spray intranasal BID #18.2 mL 06/14/24 06/16/24 Rx mcg/actuation nasal spray,suspension (Flonase Allergy Relief) pseudoephedrine HCl 120 mg 120 mg PO BID 30 days #60 tabs 06/14/24 06/16/24 Rx tablet,extended release (Sudafed 12 Hour) sodium chloride, sodium See Rx Instructions .Route 06/14/24 06/16/24 Rx bicarb-nasal rinse squeeze bottle .COMPLEX #50 ea with packet (Neilmed Sinus Rinse Complete with packet) esomeprazole magnesium 40 mg 40 mg PO BID 06/16/24 06/16/24 History capsule,delayed release Patient History Medical History Hx of endometriosis Degenerative disc disease Osteoarthritis History of kidney stones Esophageal dilatation HX OF Dysphagia GERD (gastroesophageal reflux disease) History of anemia Irregular heart rate follows w/ Dr Owen History of COVID-19 06/22/23- home test-resolved Hx of recurrent pneumonia reason for inhaler- Hypertension Lupus (systemic lupus erythematosus) Scleroderma affects lungs, reason for cellcept Surgical History History of anesthesia reaction EPIDURAL WITH LABOR (WENT INTO RESPIRATORY ARREST D/T "GOING BOTH WAYS") History of esophagogastroduodenoscopy (EGD) History of colonoscopy H/O total hysterectomy History of section X 1 Hx of basal cell carcinoma excision LEG History of nasal septoplasty History of tooth extraction History of cataract surgery RT/LEFT Family History Grandmother (Maternal) Family hx of colon cancer Other No family history of adverse response to anesthesia Social History Smoking Status: Never smoker Second Hand Exposure: Yes ( A CHILD); Do You Dip or Chew Tobacco: No; Hx Alcohol Use: Yes Alcohol type: wine and hard liquor Hx Substance Use: No Preferred Language: Yakut Communication Ability: Effective Hob Grinder Required: No Beliefs That Will Affect Care: None Current Living Situation: Spouse Feels Safe at Home: Yes Safety Concerns: Feels Safe At This Time Assistive Devices: None Review of Systems Review of Systems: All systems reviewed & are unremarkable except as noted in HPI & below Physical Exam Constitutional: WD/WN, vitals as above Respiratory: normal respiratory effort, lungs clear to auscultation dry cough Cardiovascular: RRR, no murmur, no edema Skin: no rashes, warm and dry Neurologic: moves all extremities and awake Psychiatric: A+Ox3, euthymic affect Results & Data Vital Signs (Past 12 Hours) Vital Signs Temp Pulse Pulse Resp BP BP BP 06/17/24 07:52 36.5 C 66 18 104/69 06/17/24 04:00 36.4 C L 69 18 112/74 06/17/24 01:37 36.5 C 94 H 18 137/86 06/17/24 01:26 81 06/17/24 00:47 36.6 C 96 H 18 103/85 06/17/24 00:30 105 H 22 06/17/24 00:00 87 19 106/76 06/16/24 23:06 88 16 120/78 06/16/24 21:06 102 H 18 150/87 H Pulse Ox O2 Del Method 06/17/24 07:52 95 Room Air 06/17/24 04:00 95 Room Air 06/17/24 01:37 94 Room Air 06/17/24 01:26 06/17/24 00:47 94 Room Air 06/17/24 00:30 94 06/17/24 00:00 91 Room Air 06/16/24 23:06 94 Room Air 06/16/24 21:06 96 Room Air
--- NOTE | 2024-06-17 08:51 | Electrocardiogram Report ---
Test Reason : Blood Pressure : */* mmHG Vent. Rate : 100 BPM Atrial Rate : 100 BPM P-R Int : 172 ms QRS Dur : 142 ms QT Int : 378 ms P-R-T Axes : 64 -20 -9 degrees QTcB Int : 487 ms Sinus rhythm with Premature supraventricular complexes and Fusion complexes Right bundle branch block Diffuse Nonspecific T wave abnormality Abnormal ECG When compared with ECG of 06-Jun-2024 11:17, Premature supraventricular complexes are now Present HR has decreased by 25 bpm Confirmed by Matthew Minor ([id number]) on 06/17/2024 8:51:38 AM Referred By: REFERRED SELF Confirmed By: Matthew Minor
[2024-06-17] MEDS ORDERED: hydroCHLOROthiazide 25 MG TAB PO SCH (09:00)
--- NOTE | 2024-06-17 11:53 | Hospitalist Progress Note ---
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 Pt also complains of persistent dry cough, reports gradually improving and has some headache. She is being managed for the following: Tachycardia Multifactorial: ARF secondary to hypovolemia, possible deconditioning iso recent confinement for pneumonia, recent decongestant prescription Patient directed to the ED / oral due to note of tachycardia on event monitor per recommendation from [facility] cardiology. Patient denies chest pain, troponin seems chronically elevated/flat trend. Cardiology on board, await ongoing recs Continue telemetry monitoring. HR fairly under control for now. DC Sudafed. Continue home diltiazem and metoprolol. Incidental finding of old stroke: CT head done for frontal headache showed few little chronic lacunar infarcts in basal ganglia/periventricular region/internal and external capsule bilaterally. Patient with no focal weakness of limbs/no numbness or tingling/speech is clear. Discussed with neurology on-call, no need for further imaging. Aspirin started, statin started at low-dose given her underlying hepatic condition. Patient has been made aware. Sinusitis: Sphenoid and ethmoid sinusitis bilaterally noted per CT head at admission. Patient recently completed multiple courses of antibiotic in the last 1 to 2 months. Just completed Levaquin prior to arrival. Patient reports dry cough, gradually improving. Denies febrile illness. Denies acute worsening of headache or cough. Can continue with saline spray and steam inhalation for comfort. Continue to monitor clinically. Monitor off antibiotic. Acute renal failure: Admitting creatinine of 1.33, baseline creatinine of 0.6 to 0.8. Status post IV fluid. Likely secondary to hypovolemia. Resolved. Hypokalemia: Admitting potassium of 2.7, likely secondary to poor intake and use of hydrochlorothiazide at home. Repleted. Resolved. Hold hydrochlorothiazide. Other chronic medical conditions: Continue with/resume home meds as when able. Recent treatment for bacteremia/UTI/pneumonia, finished Levaquin course just prior to arrival. A-fib on Eliquis, patient NSR . Noted during hospital admission 06/02/2024 to 06/07/2024. Was a started on Eliquis. 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 Eliquis Full code Admission and Anticipated Discharge Date Admission Date: June 16, 2024 Subjective Patient was seen and examined at bedside. Patient was lying in bed, on room air, NAD, resting comfortably. Patient reports dry cough ongoing, reports very slowly improving, denies febrile illness or sore throat or face pain. Patient reports eating okay, denies nausea. Physical Exam Physical Exam: GENERAL: Comfortable, pleasant, no respiratory distress SKIN: Normal color, warm HEENT: [place] palpebral conjunctivae, no ptosis, moist buccal mucosa NECK : Supple, no tenderness CHEST : CTA, no tenderness HEART : RRR, no obvious murmurs ABDOMEN: Some distention, nontender EXTREMITIES : Minimal LE swelling, no LE tenderness, no other conspicuous deformities noted NEUROLOGIC : Coherent, no facial asymmetry, no other gross focality Results & Data Results & Data Vital Signs (Past 12 Hours) Vital Signs Temp Pulse Pulse Resp BP BP BP 06/17/24 11:29 36.5 C 73 18 120/82 06/17/24 08:00 06/17/24 07:52 36.5 C 66 18 104/69 06/17/24 04:00 36.4 C L 69 18 112/74 06/17/24 01:37 36.5 C 94 H 18 137/86 06/17/24 01:26 81 06/17/24 00:47 36.6 C 96 H 18 103/85 06/17/24 00:30 105 H 22 06/17/24 00:00 87 19 106/76 Pulse Ox O2 Del Method 06/17/24 11:29 06/17/24 08:00 Room Air 06/17/24 07:52 95 Room Air 06/17/24 04:00 95 Room Air 06/17/24 01:37 94 Room Air 06/17/24 01:26 06/17/24 00:47 94 Room Air 06/17/24 00:30 94 06/17/24 00:00 91 Room Air
[2024-06-17] MEDS ORDERED: SODIUM CHLORIDE 0.65% NA SOLN 45 ML (OCEAN) PRN (12:16)
--- NOTE | 2024-06-17 12:37 | Electrocardiogram Report ---
Test Reason : Blood Pressure : */* mmHG Vent. Rate : 68 BPM Atrial Rate : 68 BPM P-R Int : 174 ms QRS Dur : 140 ms QT Int : 422 ms P-R-T Axes : 77 75 -14 degrees QTcB Int : 448 ms Normal sinus rhythm Right bundle branch block Diffuse Minor Nonspecific T wave abnormality Abnormal ECG When compared with ECG of 16-Jun-2024 18:48, Fusion complexes are no longer Present Premature supraventricular complexes are no longer Present Confirmed by Matthew Minor ([id number]) on 06/17/2024 12:37:01 PM Referred By: REFERRED SELF Confirmed By: Matthew Minor
[2024-06-17] MEDS ORDERED: Nursing to Pharmacy Communication SCH (14:30)
[2024-06-17 15:49] VITALS: PULSE 70; RESP 20; TEMP 97.9
--- NOTE | 2024-06-17 17:19 | Discharge Summary ---
Date of Service June 17, 2024 Admission HPI Per Admitting Provider History obtained from patient and records. 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 Recent confinement 2 weeks ago for sepsis secondary to pneumonia/complicated UTI. A-fib with RVR during confinement. Diltiazem added to patient's beta-eliza on discharge. Outpatient event monitor to be arranged. Patient discharged on Levaquin course following ID recommendations. Patient not eating well upon being discharged to home. Nausea symptoms without abdominal pain. Persistent frontal headache symptoms which he attributed to persistent cough from pneumonia. Sudafed prescribed by taffy candy maker on follow-up visit a few days ago for persistent cough/congestion. Cough symptoms not any worse though as per patient. Worsening weakness at home. [place] like she was going to pass out. Denies chest pain, SOB. Patient received a call from [facility] cardiology provider today that event monitor showed tachycardia. Patient directed to ER for evaluation. SBP 90s upon arrival at the ER. 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 Admission Exam Per Admitting Provider GENERAL: Comfortable, pleasant, no respiratory distress SKIN: Normal color, warm HEENT: [place] palpebral conjunctivae, no ptosis, dry buccal mucosa NECK : Supple, no tenderness CHEST : CTA, no tenderness HEART : RRR, no obvious murmurs ABDOMEN: Some distention, nontender EXTREMITIES : Minimal LE swelling, no LE tenderness, no other conspicuous deformities noted NEUROLOGIC : Coherent, no facial asymmetry, no other gross focality Principal Diagnosis Tachycardia Incidental finding of old stroke Sinusitis Acute renal failure Hypokalemia Discharge Exam GENERAL: Comfortable, pleasant, no respiratory distress SKIN: Normal color, warm HEENT: [place] palpebral conjunctivae, no ptosis, moist buccal mucosa NECK : Supple, no tenderness CHEST : CTA, no tenderness HEART : RRR, no obvious murmurs ABDOMEN: Some distention, nontender EXTREMITIES : Minimal LE swelling, no LE tenderness, no other conspicuous deformities noted NEUROLOGIC : Coherent, no facial asymmetry, no other gross focality Discharge Data Allergies Allergy/AdvReac Type Severity Reaction Status Date / Time latex Allergy Mild SKIN Verified 06/09/24 14:46 IRRITATION levofloxacin [From Levaquin] AdvReac Severe Diarrhea Unverified 06/09/24 14:46 metronidazole AdvReac Severe Diarrhea Unverified 06/09/24 14:46 adhesive tape AdvReac Mild SKIN Verified 06/09/24 14:46 REDNESS Consultations 06/16/24 23:51 ED Decision to Admit Stat 06/17/24 06:32 Consult Cardiology Routine Ordered Studies 06/17/24 00:48 CT head/brain wo con Stat Hospital Course (1) Tachycardia: Plan 74-year-old female with PMH of cardiac dysrhythmia, AFib on Eliquis, HTN, bronchial asthma, urolithiasis, 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 cardio that event monitor showed tachy and was directed to ED 06/16. Pt also complains of persistent dry cough, reports gradually improving and has some headache. She was managed for the following: Tachycardia Multifactorial: ARF secondary to hypovolemia, possible deconditioning iso recent confinement for pneumonia, recent decongestant prescription Patient directed to the ED 2/2 oral due to note of tachycardia on event monitor per recommendation from [facility] cardiology. Patient denies chest pain, troponin seems chronically elevated/flat trend. Cardiology on board, d/w cardio, no further recs, aspirin and crestor added this admission. HR fairly under control for now. DC Sudafed, pt advised not to use it. Continue home diltiazem and metoprolol. Incidental finding of old stroke: CT head done for frontal headache showed few little chronic lacunar infarcts in basal ganglia/periventricular region/internal and external capsule bilaterally. Patient with no focal weakness of limbs/no numbness or tingling/speech is clear. Discussed with neurology on-call, no need for further imaging. Aspirin started, statin started at low-dose given her underlying hepatic condition. Patient and her has been made aware. Sinusitis: Sphenoid and ethmoid sinusitis bilaterally noted per CT head at admission. Patient recently completed multiple courses of antibiotic in the las t 1 to 2 months. Just completed Levaquin prior to arrival. Patient reports dry cough, gradually improving. Denies febrile illness. Denies acute worsening of headache or cough. Can continue with saline spray and steam inhalation for comfort. Continue to monitor clinically, pt and her educated on when to seek medical advice for antibiotic treatment. Acute renal failure: Admitting creatinine of 1.33, baseline creatinine of 0.6 to 0.8. Status post IV fluid. Likely secondary to hypovolemia. Resolved. Pt advised to hold hctz for next 2 days then resume. pt advised to f/u w/ pcp office in a week time for monitoring. Hypokalemia: Admitting potassium of 2.7, likely secondary to poor intake and use of hydrochlorothiazide at home. Repleted. Resolved. Hold hydrochlorothiazide. Other chronic medical conditions: Continue with/resume home meds as when able. Recent treatment for bacteremia/UTI/pneumonia, finished Levaquin course just prior to arrival. A-fib on Eliquis, patient NSR . Noted during hospital admission 06/02/2024 to 06/07/2024. Was a started on Eliquis. 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 Eliquis Full code Following instructions were communicated to the patient and her prior to discharge. Patient being discharged to home with spouse support with following instruction at the point of discharge: Follow-up with your primary care physician within a week time and likely you will need labs CBC/CMP/magnesium/phosphorus. You were admitted for increased heart rate, likely secondary to Sudafed use. Please discontinue use of Sudafed upon discharge. As has been described to you, your CT scan of the head showed old stroke. Aspirin and Crestor has been added to your medication regimen. Follow-up with your primary care physician for long-term monitoring. You are also noted to have acute kidney injury, continue to hold your hydrochlorothiazide upon discharge for next 2 days and then can resume. Continue to take your potassium tablet. You will need repeat evaluation by your PCP office in 5 to 7 days time upon discharge. Follow-up with your cardiology in 1 week's time upon discharge. Take your medications as prescribed. Please make sure that you are able to get your medications today by calling your pharmacy before you leave the hospital so that your treatment continuity is not broken. Home Health Attestation I certify that this patient is under my care and that I, or a physicians neurosurgical physician assistant working with me, had a face to-face encounter that meets the [facility] [id number] encounter requirements with this patient. The encounter with the patient was in whole, or in part, for the following medical condition, which is the primary reason for home health care (list medical condition): I certify that, based on my findings, the following services are medically necessary home health services: My clinical findings support the need for the above services because: Further, I certify that my clinical findings support that this patient is homebound (i.e. absences from home require considerable and taxing effort and are for medical reasons or nondenominational services or infrequently or of short duration when for other reasons) because: Certification for Home Health Services: Based on the above findings, I certify that this patient is confined to the home and needs intermittent fpc care, physical therapy and/or speech therapy or continues to need occupational therapy. The patient is under my care, and I have initiated the establishment of the plan of care. This patient will be followed by a physician who will periodically review the plan of care. Total Time Total Time Spent Total Time Spent (In Minutes): 50 Discharge Plan Discharge Items Patient Disposition: Home - Self-Care Reason For Visit: TACHY, HYPOK Discharge Diagnosis: Tachycardia Incidental finding of old stroke Sinusitis Acute renal failure Hypokalemia Activity: Resume your previous activity Non-emergency contact: Primary Care Provider Call non-emergency contact if: you have any medication questions, your symptoms worsen and your temperature is above 101 Follow-up/Referrals: Saroj Kong [Primary Care Provider] - Diet: Heart Healthy Addtl Attending Provider Instructions: Follow-up with your primary care physician within a week time and likely you will need labs CBC/CMP/magnesium/phosphorus. You were admitted for increased heart rate, likely secondary to Sudafed use. Please discontinue use of Sudafed upon discharge. As has been described to you, your CT scan of the head showed old stroke. Aspirin and Crestor has been added to your medication regimen. Follow-up with your primary care physician for long-term monitoring. You are also noted to have acute kidney injury, continue to hold your hydrochlorothiazide upon discharge for next 2 days and then can resume. Continue to take your potassium tablet. You will need repeat evaluation by your PCP office in 5 to 7 days time upon discharge. Follow-up with your cardiology in 1 week's time upon discharge. Take your medications as prescribed. Please make sure that you are able to get your medications today by calling your pharmacy before you leave the hospital so that your treatment continuity is not broken. Pending Studies at Discharge: No Stand-Alone Forms: [facility], Smoking Cessation Medications and DC Order Prescriptions: New rosuvastatin 5 mg Tablet 5 mg PO HS Qty: 30 0RF aspirin 81 mg Tablet,Delayed Release (Dr/Ec) 81 mg PO QAM Qty: 30 0RF Saline Mist 0.65 % Aerosol,Blanco 2 spray NA Q4H PRN (Reason: nasal congestion) Qty: 44 0RF benzonatate 100 mg Capsule 100 mg PO TID Qty: 30 0RF Continued Neilmed Sinus Rinse Complete Packet With Rinse Device See Rx Instructions .Route .COMPLEX Qty: 50 3RF Rx Instructions: use daily; chlorpheniramine maleate [Allergy Relief(chlorpheniramn)] 4 mg tablet 4 mg PO Q12H 30 Days Qty: 60 3RF fluticasone propionate [Flonase Allergy Relief] 50 mcg/actuation spray,suspension 1 spray intranasal BID Qty: 18.2 2RF Rx Instructions: administer into each nostril mycophenolate mofetil [CellCept] 500 mg Tablet 500 mg PO UD Hold Instructions: Resume on 06/14/24. Hold until antibiotic course is completed. Patient Comments: 1 DOSE IN QAM/ 2 TABS IN QPM Rx Instructions: Take 500mg by mouth in the morning and 1000mg by mouth in the evening hydroxychloroquine 200 mg Tablet 200 mg PO BID cholecalciferol (vitamin D3) [Vitamin D3] 125 mcg (5,000 unit) Tablet 125 mcg PO QAM metoprolol succinate 50 mg tablet extended release 24 hr 50 mg PO HS acetaminophen 500 mg Tablet 500 mg PO Q6H PRN (Reason: Pain) potassium chloride 20 mEq tablet,ER particles/crystals 20 meq PO DAILY famotidine [Pepcid] 20 mg Tablet 20 mg PO HS Eliquis 5 mg tablet 5 mg PO BID Qty: 60 0RF diltiazem HCl 30 mg Tablet 30 mg PO QAM Qty: 30 0RF Advanced Probiotic 625 mg (10 billion cell) Capsule 1 cap PO DAILY 14 Days Qty: 14 0RF esomeprazole magnesium 40 mg capsule,delayed release(DR/EC) 40 mg PO BID Held hydrochlorothiazide 25 mg tablet 25 mg PO QAM Hold Instructions: Resume on 06/20/24. Discontinued pseudoephedrine HCl [Sudafed 12 Hour] 120 mg tablet extended release 120 mg PO BID 30 Days Qty: 60 3RF Discharge Orders: Discharge Order (Routine); Ordered 06/17/24 Ordered By: Jon Chin Admission Data Admit Date/Time: 06/16/24 23:58 Attending Provider: Jon Chin Admit Provider: Jl Leon Primary Care Provider: Saroj Kong Other Providers: Jl Leon; Fuad Owen Sarah Ann; Maria Luisa Dean
[2024-06-17 17:45] VITALS: BP 112/74
[2024-06-17] MEDS ORDERED: PANTOprazole 40 MG TAB PO SCH (21:00)
[2024-06-17] MEDS ORDERED: FAMOTIDINE 20 MG TAB PO SCH (21:00)
[2024-06-17] MEDS ORDERED: MYCOPHENOLATE MOFETIL 250 MG CAP PO SCH (21:00)
[2024-06-17] MEDS ORDERED: ROSUVASTATIN CALCIUM 5 MG TAB PO SCH (21:00)
[2024-06-17] MEDS ORDERED: BENZONATATE 100 MG CAPSULE PO SCH (21:00)
[2024-06-17] MEDS ORDERED: METOPROLOL SUCC 50MG EXT REL TAB PO SCH (21:00)
[2024-06-18] MEDS ORDERED: MYCOPHENOLATE MOFETIL 250 MG CAP PO SCH (07:00)
[2024-06-18] MEDS ORDERED: ASPIRIN 81 MG ECTAB PO SCH (09:00)
--- OUTSIDE RECORDS SUMMARY | 2024-06-18 12:58 | External Medical Summary | Summary of Care ---
Author Name Unknown Organization [facility] Address [address] [place] [address] Phone [phone] Care Team Providers Care Ceo Na Name Role Phone Rachana Kong MD Primary Care Provider [phone] Reason for Visit * Reason Onset Date Comments Appointment 06/14/2024 Encounter Details Date Type Department Care Team (Late st Contact Info) Description 06/14/2024 Telephone Gastroenterology, [facility] [address] [place] [address] Geroge Gallegos MD [address] [place] [address] Appointment Allergies Active Allergy Reactions Criticality Noted Date Comments Adhesive Tape Other (Please comment) 02/16/2002 Redness of skin Latex 07/01/2017 Redness of skin, itchy documented as of this encounter (statuses as of 06/14/2024) Medications DAILY VITAMIN OR TABS 0 02/16/2002 Active ASPIRIN 81 MG PO TABS one pill every other day Active HYDROXYCHLOROQU INE SULFATE 200 MG PO TABS one tablet twice daily Active METOPROLOL SUCCINATE ER 25 MG PO TB24 100mg daily Active VITAMIN D 2000 UNITS PO TABS 1000 U daily Act david CELLCEPT 500 MG PO TABS one tablet in the moring and one tablet in the evening Active SYMBICORT 160-4.5 MCG/ACT IN AERO two puffs twice daily as needed Active ranitidine (ZANTAC) 150 MG Tablet Take 150 mg by mouth at bedtime. 11 05/20/2016 Active hydrochlorothia zide (HYDRODIURIL) 12.5 MG Tablet Take 12.5 mg by mouth. M. W. F as needed for swelling Active Esomeprazole Magnesium 20 MG CPDR Take 20 mg by mouth daily. Active documented as of this encounter (statuses as of 06/14/2024) Active Problems Problem Noted Date Diagnosed Date Malignant neoplasm of skin 08/03/2002 Overview (10/09/2015): ICD-10 update of inactive term DEGENERATIVE SKIN DISORD 07/04/2002 Other dyschromia 07/04/2002 HYPERTENSION NOS 02/16/2002 Need for prophylactic hormon e replacement therapy (postmenopausal) Cardiac dysrhythmia, unspecified Other specified cardiac dysrhythmias(427.89) Calculus of kidney documented as of this encounter (statuses as of 06/14/2024) Immunizations Name Administration Dates Next Due Pneumococcal Polysaccharide PPV23 (Pneumovax) Seasonal Influenza Vac., MDV, IM, 0.5 mL (Fluzon e) 05/02/2013 documented as of this encounter Social History Tobacco Use Types Packs/Day Years Used Date Smoking Tobacco: Never Smokeless Tobacco: Never Alcohol Use Standard Drinks/Week Comments Yes 0 (1 standard drink = 0.6 oz pur e alcohol) seldom 1 monthly Comments No Sex and Gender Information Value Date Recorded Sex Assigned at Not on file Legal Sex Female 5:08 AM EST Gender Identity Not on file Sexual Orientation Not on file documented as of this encounter Miscellaneous Notes * Telephone Encounter - Ana Mixon OSA - 06/14/2024 8:50 AM EST Received referral for pt to have HOME HEALTH CLINICAL SUPERVISOR appt to establish care with one of our providers at [facility]. Please offer pt an appt when she calls back PARVIN Winston 06/14/2024 8:51 AM documented in this encounter Plan of Treatment Scheduled Procedures Name Priority Associated Diagnoses Date/Ti me COLONOSCOPY FLEXIBLE PROXIMA L DIAGNOSTIC Recall Special screening for malignant neoplasms, colon Health Maintenance Due Date Last Done Comments DXA Scan 1950 COVID-19 Vaccine (#1) 01/20/1957 Depression Screening 1962 Hepatitis C Screening 01/20/1970 Zoster Vaccines (1 of 2) 01/20/1971 Cologuard 01/20/1997 Sigmoidoscopy 01/20/1997 DTap/Tdap Vaccines (1 - Tdap) 09/30/2000 09/29/2000, 07/09/1989 Fecal Occult Blood Test 06/18/2013 06/18/2012, 06/03 Albumin/Creatinine Ratio 09/06/2016 09/06/2013 Mammogram 02/10/2018 02/10/2017, 01/04, 01/29/2016, Additional history exists GFR 12/28/2018 12/28/2017, 10/05, 08/31/2017, Additional history exists Lipid Panel 07/01/2022 07/01/2017, 08/07, 09/06/2015, Additional history exists Colonoscopy 04/26/2023 04/26/2013, 04/26/2013 Colorectal Cancer Screening 04/26/2023 Influenza Vaccine (FLU shot) (#1) 2024 05/20/2017, 07/16/2015, 05/02/2013 Pneumococcal Vaccine: 65+ Years Completed 06/22/2019, 05/20/2017, 05/10/2013 HPV (Gardasil) Vaccine Aged Out No lo nger eligible based on patient's age to complete this topic Hepatitis B Vaccine Aged Out No longe r eligible based on patient's age to complete this topic MENINGOCOCCAL (MENACTRA/MENVEO) Aged Out No longer eligible based on patient's age to complete this topic documented as of this encounter Medical Devices Not on filedocumented as of this encounter Care Teams Ceo Na Relationship Specialty Start Date End Date Rachana Kong MD [address] [place], [place] [address] [address] PCP - General 10/20/05 documented as of this encounter
== END 2024-06-17 18:38 | disposition home or self-care (01) ==
LOC: 4W 18:19 → ED 18:19 → 4W 06-17 00:47